=== PATIENT | female | born 1955 | race Caucasian/White ===

== ENCOUNTER 2016-07-23 22:12 | Inpatient (IN) | payer MEDICARE, MEDICAID ==
--- NOTE | 2016-07-23 22:52 | EDM.PDOC ---
ED HPI GENERAL MEDICAL PROBLEM - General Chief Complaint: Fever Stated Complaint: Feveres; Lethargy Time Seen by Provider: 07/23/16 22:14 Source of Information: Reports: Family, Old records, RN, RN notes reviewed History Limitations: Reports: Altered mental status - History of Present Illness INITIAL COMMENTS - FREE TEXT/NARRATIVE: Patient is brought to the ED at [facility] with a one day history of fevers (101-103) and poor fluid intake. Patient has also been more lethargic than usual. Patient is a resident of a local long term due to Mental Handicap. Patient is non-verbal. History is obtained from caretakers. She did get a dose of Tylenol around 21:30 this evening. Overall, patient is generally healthy. Onset Date: 07/23/16 - Related Data Allergies Allergy/AdvReac Type Severity Reaction Status Date / Time No Known Allergies Allergy Verified 07/23/16 23:49 ED ROS GENERAL - Review of Systems Review Of Systems: See Below (ROS obtained from [facility] staff) Constitutional: Reports: fever, chills, weakness Respiratory: Reports: shortness of breath, cough, sputum Cardiovascular: Denies: Chest pain, Palpitations Skin: Reports: wound (right heal, chronic) Neurological: Reports: weakness ED EXAM, GENERAL - Physical Exam Exam: See Below Exam Limited By: Altered mental status General Appearance: no apparent distress, lethargic Throat/Mouth: Normal oropharynx (mucous membranes are dry, pale pink), No airway compromise Neck: supple Respiratory/Chest: no respiratory distress, decreased breath sounds, rhonchi, wheezing Cardiovascular: normal peripheral pulses, regular rate, rhythm GI/Abdominal: normal bowel sounds, soft, non tender, no distention Neurological: other (lethargy; due to mental handicap, patient does not verbally respond well at baseline) Skin Exam: Warm (very warm), Dry, Intact, Normal color, No rash Course - Vital Signs Last Recorded V/S: Last Vital Signs Temp 37.4 C 07/23/16 23:59 Pulse 85 07/23/16 23:59 Resp 22 H 07/23/16 23:59 BP 129/57 L 07/23/16 23:59 Pulse Ox 92 L 07/23/16 23:59 - Orders/Labs/Meds Orders: Active Orders 24 hr Category Date Time Status Chest 1V Frontal [CR] Stat Exams 07/23/16 22:48 Taken CULTURE BLOOD [BC] Stat Lab 07/23/16 23:34 Ordered CULTURE BLOOD [BC] Stat Lab 07/23/16 23:34 Ordered Sodium Chloride 0.9% [Normal Saline] 1,000 ml Med 07/23/16 22:30 Active IV ASDIRECTED Sodium Chloride 0.9% [Saline Flush] Med 07/23/16 22:23 Active 10 ml FLUSH ASDIRECTED PRN Blood Culture x2 Reflex Set [OM.PC] Stat Oth 07/23/16 23:34 Ordered Peripheral IV Insertion Adult [OM.PC] Routine Oth 07/23/16 22:23 Ordered Medication Orders Sodium Chloride (Normal Saline) 1,000 mls @ 999 mls/hr IV ASDIRECTED MINDA Last Admin: 07/23/16 23:02 Dose: 999 mls/hr Sodium Chloride (Saline Flush) 10 ml FLUSH ASDIRECTED PRN PRN Reason: Keep Vein Open Labs: Laboratory Tests 07/23/16 07/23/16 07/23/16 Range/Units 22:58 22:58 22:58 WBC 3.8 L (4.0-10.0) x10^3/uL RBC 3.73 L (4.00-5.50) x10^6/uL Hgb 11.9 L (12.0-16.0) g/dL Hct 35.1 (33.0-47.0) % MCV 94.1 H (78.0-93.0) fL MCH 31.9 (26.0-32.0) pg MCHC 33.9 (32.0-36.0) g/dL RDW Coeff of Souleymane 14.7 (10.0-15.0) % Plt Count 189 (130-400) x10^3/uL Neut % (Auto) 76.8 (50.0-80.0) % Lymph % (Auto) 11.5 L (25.0-50.0) % Dauphin % (Auto) 10.2 (2.0-11.0) % Eos % (Auto) 0.5 (0.0-4.0) % Baso % (Auto) 1.0 (0.2-1.2) % Sodium 137 (136-145) mmol/L Potassium 4.3 (3.5-5.1) mmol/L Chloride 101 (98-107) mmol/L Carbon Dioxide 28 (21-32) mmol/L BUN 22 H (7-18) mg/dL Creatinine 1.1 H (0.55-1.02) mg/dL Est Cr Clr Drug Dosing TNP Estimated GFR (MDRD) 50 Glucose 123 H (74-106) mg/dL Lactic Acid 1.6 (0.4-2.0) mmol/L Calcium 8.4 L (8.5-10.1) mg/dL Corrected Calcium 9.28 (8.5-10.1) mg/dL Total Bilirubin 0.3 (0.2-1.0) mg/dL AST 17 (15-37) U/L ALT 16 (14-59) U/L Alkaline Phosphatase 86 (46-116) U/L C-Reactive Protein 9.6 H (<=0.9) mg/dL Total Protein 7.1 (6.4-8.2) g/dL Albumin 2.9 L (3.4-5.0) g/dL Globulin 4.2 Albumin/Globulin Ratio 0.69 Urine Color (YELLOW) Urine Appearance (CLEAR) Urine pH (5.0-8.0) Ur Specific [place] Urine Protein (NEGATIVE) mg/dL Urine Glucose (UA) (NEGATIVE) mg/dL Urine Ketones (NEGATIVE) mg/dL Urine Occult Blood (NEGATIVE) Urine Nitrite (NEGATIVE) Urine Bilirubin (NEGATIVE) Urine Urobilinogen (0.2) EU/dL Ur Leukocyte Esterase (NEGATIVE) Urine RBC (NOT SEEN) /HPF Urine WBC (NOT SEEN) /HPF Ur Squamous Epith Cells (NEGATIVE) /HPF Ur Renal Epithelial Cell (NEGATIVE) /HPF Amorphous Sediment Urine Bacteria (NEGATIVE) /HPF Urine Mucus (NEGATIVE) /LPF 07/23/16 Range/Units 23:32 WBC (4.0-10.0) x10^3/uL RBC (4.00-5.50) x10^6/uL Hgb (12.0-16.0) g/dL Hct (33.0-47.0) % MCV (78.0-93.0) fL MCH (26.0-32.0) pg MCHC (32.0-36.0) g/dL RDW Coeff of Souleymane (10.0-15.0) % Plt Count (130-400) x10^3/uL Neut % (Auto) (50.0-80.0) % Lymph % (Auto) (25.0-50.0) % [place]hin % (Auto) (2.0-11.0) % Eos % (Auto) (0.0-4.0) % Baso % (Auto) (0.2-1.2) % Sodium (136-145) mmol/L Potassium (3.5-5.1) mmol/L Chloride (98-107) mmol/L Carbon Dioxide (21-32) mmol/L BUN (7-18) mg/dL Creatinine (0.55-1.02) mg/dL Est Cr Clr Drug Dosing Estimated GFR (MDRD) Glucose (74-106) mg/dL Lactic Acid (0.4-2.0) mmol/L Calcium (8.5-10.1) mg/dL Corrected Calcium (8.5-10.1) mg/dL Total Bilirubin (0.2-1.0) mg/dL AST (15-37) U/L ALT (14-59) U/L Alkaline Phosphatase (46-116) U/L C-Reactive Protein (<=0.9) mg/dL Total Protein (6.4-8.2) g/dL Albumin (3.4-5.0) g/dL Globulin Albumin/Globulin Ratio Urine Color Yellow (YELLOW) Urine Appearance Cloudy H (CLEAR) Urine pH 8.0 (5.0-8.0) Ur Specific [place] 1.020 Urine Protein 30 H (NEGATIVE) mg/dL Urine Glucose (UA) Negative (NEGATIVE) mg/dL Urine Ketones Negative (NEGATIVE) mg/dL Urine Occult Blood Negative (NEGATIVE) Urine Nitrite Negative (NEGATIVE) Urine Bilirubin Negative (NEGATIVE) Urine Urobilinogen 0.2 (0.2) EU/dL Ur Leukocyte Esterase Negative (NEGATIVE) Urine RBC 0-5 (NOT SEEN) /HPF Urine WBC 0-5 (NOT SEEN) /HPF Ur Squamous Epith Cells Not seen (NEGATIVE) /HPF Ur Renal Epithelial Cell Rare H (NEGATIVE) /HPF Amorphous Sediment Many Urine Bacteria Rare (NEGATIVE) /HPF Urine Mucus Few H (NEGATIVE) /LPF Meds: Medications Generic Name Dose Route Start Last Admin Trade Name Freq PRN Reason Stop Dose Admin Sodium Chloride 1,000 mls @ 999 mls/hr 07/23/16 22:30 07/23/16 23:02 Normal Saline IV 999 mls/hr ASDIRECTED MINDA Administration Sodium Chloride 10 ml 07/23/16 22:23 Saline Flush FLUSH ASDIRECTED PRN Keep Vein Open Departure - Departure Time of Disposition: 00:11 Disposition: Refer to Observation Condition: fair Clinical Impression: Dehydration, mild Left lower lobe pneumonia Qualifiers: Pneumonia type: due to unspecified organism Qualified Code(s): J18.1 - Lobar pneumonia, unspecified organism Fever Qualifiers: Fever type: unspecified Qualified Code(s): R50.9 - Fever, unspecified Referrals: Solomon Smith MD [Primary Care Provider] - ED Communication - ED Communication Date/Time Date: 07/23/16 Time Called: 23:40 - Discussed Case With (1) Discussed Case With (1): Admitting Provider Person/s Notified (1): Vicky Steen - Problem List Review Problem List Initiated/Reviewed/Updated: Yes - My Orders Last 24 Hours: My Active Orders 07/23/16 22:23 Sodium Chloride 0.9% [Saline Flush] 10 ml FLUSH ASDIRECTED PRN Peripheral IV Insertion Adult [OM.PC] Routine 07/23/16 22:30 Sodium Chloride 0.9% [Normal Saline] 1,000 ml IV ASDIRECTED 07/23/16 22:48 Chest 1V Frontal [CR] Stat 07/23/16 23:34 CULTURE BLOOD [BC] Stat CULTURE BLOOD [BC] Stat Blood Culture x2 Reflex Set [OM.PC] Stat - Assessment/Plan Admission H&P: Please use this note as an admission H&P Last 24 Hours: My Active Orders 07/23/16 22:23 Sodium Chloride 0.9% [Saline Flush] 10 ml FLUSH ASDIRECTED PRN Peripheral IV Insertion Adult [OM.PC] Routine 07/23/16 22:30 Sodium Chloride 0.9% [Normal Saline] 1,000 ml IV ASDIRECTED 07/23/16 22:48 Chest 1V Frontal [CR] Stat 07/23/16 23:34 CULTURE BLOOD [BC] Stat CULTURE BLOOD [BC] Stat Blood Culture x2 Reflex Set [OM.PC] Stat
[2016-07-23] MEDS: Sodium Chloride 0.9% 1,000 ML IV SCH (23:02)
[2016-07-23 23:04] LABS: EOSINOPHILS PERCENT AUTO 0.5 % (0.0-4.0); HEMATOCRIT 35.1 % (33.0-47.0); HEMOGLOBIN 11.9 g/dL (12.0-16.0); LYMPHOCYTES PERCENT AUTO 11.5 % (25.0-50.0); MEAN CORPUSCULAR HEMOGLOBIN 31.9 pg (26.0-32.0); MEAN CORPUSCULAR HGB CONC 33.9 g/dL (32.0-36.0); MEAN CORPUSCULAR VOLUME 94.1 fL (78.0-93.0); MONOCYTES PERCENT AUTO 10.2 % (2.0-11.0); NEUTROPHILS PERCENT AUTO 76.8 % (50.0-80.0); RDW CV 14.7 % (10.0-15.0); RED BLOOD CELL COUNT 3.73 x10^6/uL (4.00-5.50)
[2016-07-23 23:26] LABS: A/G RATIO 0.69; ALBUMIN 2.9 g/dL (3.4-5.0); ALKALINE PHOSPHATASE 86 U/L (46-116); BILIRUBIN TOTAL 0.3 mg/dL (0.2-1.0); C-REACTIVE PROTEIN 9.6 mg/dL (<=0.9); CALCIUM 8.4 mg/dL (8.5-10.1); CHLORIDE,CL 101 mmol/L (98-107); CORRECTED CALCIUM 9.28 mg/dL (8.5-10.1); CREATININE 1.1 mg/dL (0.55-1.02); ESTIMATED GFR 50; GLUCOSE RANDOM 123 mg/dL (74-106)
[2016-07-23 23:49] LABS: BILIRUBIN,URINE NEGATIVE (NEGATIVE); GLUCOSE,URINE NEGATIVE (NEGATIVE); KETONES,URINE NEGATIVE (NEGATIVE); LEUKOCYTE ESTERASE,URINE NEGATIVE (NEGATIVE); NITRITE,URINE NEGATIVE (NEGATIVE); OCCULT BLOOD,URINE NEGATIVE (NEGATIVE); PROTEIN,URINE 30 mg/dL (NEGATIVE); UROBILINOGEN,URINE 0.2 EU/dL (0.2)
[2016-07-23 23:50] LABS: APPEARANCE,URINE CLOUDY (CLEAR)
[2016-07-23 23:53] LABS: BACTERIA,URINE RARE /HPF (NEGATIVE); MUCUS,URINE FEW /LPF (NEGATIVE); RBC,URINE 0-5 /HPF (NOT SEEN); RENAL EPITHELIAL CELLS,URINE RARE /HPF (NEGATIVE); WBC,URINE 0-5 /HPF (NOT SEEN)
--- NOTE | 2016-07-24 00:51 | PCM.HP ---
H&P History of Present Illness - General Date of Service: 07/24/16 Admit Problem/Dx: Admission Diagnosis/Problem Admission Diagnosis/Problem Lobar pneumonia Source of Information: Old records, RN, RN notes reviewed History Limitations: Reports: Altered mental status - History of Present Illness Initial Comments - Free Text/Narative: Patient presented to the ED at [facility] earlier this evening with a fever and increased lethargy. Patient is a resident at a local senior care. According to the caretakers presents, patient had a Tmax of 103 and seemed more lethargic than usual. It was recommended by the Jail nurse the patient should be seen in the ED. It is unclear how long the patient was febrile. Patient is a poor historian given her baseline mental status. She has a history of dementia and is mentally handicapped. Jail staff states the patient also has not been taking in PO fluids very well. [facility]ent[facility] staff does not note any other symptoms. 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; Scoliosis; Pes Planus; Calcaneal Valgus Other Neuro History: Downs Syndrome Psychiatric History: Reports: Dementia, Learning disability Endocrine/Metabolic History: Reports: Hypothyroidism Dermatologic History: Reports: Decubitus ulcer (Right Heal), Seborrheic dermatitis Social & Family History - Family History Family Medical History: Noncontributory - Tobacco Use Smoking Status *Q: Never Smoker Tobacco Use Within Last Twelve Months: No - Tobacco Core Measures Tobacco Use/Smoking Within Last 30 Days: No - Caffeine Use Caffeine Use: Reports: None - Alcohol Use Alcohol Use History: No Alcohol Use in Last Twelve Months: No - Recreational Drug Use Recreational Drug Use: No Drug Use in Last 12 Months: No - Sexual History Sexual History: Reports: None - Living Situation & Occupation Living situation: Reports: single, extended care facility ([facility]) Occupation: disabled H&P Review of Systems - Review of Systems: Review Of Systems: See Below (ROS obtained from Jail staff) General: Reports: fever, chills, weakness HEENT: Reports: no symptoms Pulmonary: Reports: wheezing, cough, sputum. Denies: shortness of breath Cardiovascular: Reports: blood pressure problem. Denies: chest pain, palpitations Gastrointestinal: Denies: Abdominal pain, Diarrhea, Nausea, Vomiting Skin: Reports: wound (chronic heal ulcer on right foot) Neurological: Reports: no symptoms Exam - Exam Exam: See Below - Vital Signs Vital Signs: Last Vital Signs Temp 37.4 C 07/23/16 23:59 Pulse 85 07/23/16 23:59 Resp 22 H 07/23/16 23:59 BP 129/57 L 07/23/16 23:59 Pulse Ox 92 L 07/23/16 23:59 Weight: 49.895 kg - Exam Quality Assessment: urinary catheter, skin breakdown General: cooperative, lethargic HEENT: Pupils equal, Pupils reactive, TMs clear Neck: supple Lungs: Rhonchi, Wheezing Cardiovascular: regular rate, regular rhythm, systolic murmur Abdomen: normal bowel sounds, soft. No: tenderness Extremities: edema (trace edema BLE) Skin: warm, dry, intact, other (right heal is red; skin intact) Skin Alteration Location (drawings not to scale): 1 - Right heel is red; skin intact; area blanches well; no evidence of infection; surrounding skin is psoriatic Neuro Extensive - Mental Status: alert Psychiatric: alert - Patient Data Result Diagrams: 07/23/16 22:58 07/23/16 22:58 *Q Meaningful Use (ADM) - VTE *Q VTE Criteria *Q: VTE Mechanical Contraindications *Q: At Risk for Falls - VTE Risk Assess *Q Each Risk Factor Represents 2 Points: Age 60 - 74 Years Total Score 2 Point Risk Factors: 2 - Stroke *Q Stroke Criteria *Q: - AMI *Q AMI Criteria *Q: - Problem List (1) Left lower lobe pneumonia SNOMED Code(s): 614314326 ICD Code: J18.1 - LOBAR PNEUMONIA, UNSPECIFIED ORGANISM Status: Acute Priority: High Current Visit: Yes Onset Date: ~07/23/16 Qualifiers: Pneumonia type: due to unspecified organism Qualified Code(s): J18.1 - Lobar pneumonia, unspecified organism (2) Fever SNOMED Code(s): 898025582 ICD Code: R50.9 - FEVER, UNSPECIFIED Status: Acute Current Visit: Yes Onset Date: ~07/23/16 Qualifiers: Fever type: unspecified Qualified Code(s): R50.9 - Fever, unspecified (3) Dehydration, mild SNOMED Code(s): 8380784376296 ICD Code: E86.0 - DEHYDRATION Status: Acute Current Visit: Yes Problem List Initiated/Reviewed/Updated: Yes Orders Last 24hrs: Active Orders 24 hr Category Date Time Status Admission Status [Patient Status] [ADT] Routine ADT 07/24/16 00:12 Active Medication Orders Sodium Chloride (Normal Saline) 1,000 mls @ 999 mls/hr IV ASDIRECTED MINDA Last Admin: 07/23/16 23:02 Dose: 999 mls/hr Sodium Chloride (Saline Flush) 10 ml FLUSH ASDIRECTED PRN PRN Reason: Keep Vein Open Assessment/Plan Comment:: 1. Admit patient for observation for now 2. Follow Pneumonia Core Measures/admit orders
[2016-07-24] MEDS ORDERED: Azithromycin 500 MG in Sodium Chloride 0.9% 250 ML IV SCH (01:15)
[2016-07-24] MEDS ORDERED: Ondansetron 4 MG/2 ML SDV IV PRN (01:22)
[2016-07-24] MEDS ORDERED: Acetaminophen 650 MG Supp RECTAL PRN (01:25)
[2016-07-24] MEDS ORDERED: Sodium Chloride 0.9% 500 ML IV SCH ×3 (01:30→19:30)
[2016-07-24] MEDS ORDERED: SELENIUM SULFIDE TOP SCH (01:30)
[2016-07-24] MEDS: Albuterol/Ipratropium 3.0-0.5 MG/3 ML Neb Soln NEB SCH ×6 (02:34→21:27)
[2016-07-24] MEDS: cefTRIAXone 1 GM Vial IVPUSH SCH (02:50)
[2016-07-24] MEDS: Levothyroxine 100 MCG Tab PO SCH (06:07)
[2016-07-24] MEDS: A VITE PO SCH (08:00)
[2016-07-24] MEDS: [UNRECOGNIZED DRUG - OTHER] PO SCH ×3 (08:00→20:32)
[2016-07-24] MEDS: Zinc (Zinc Gluconate) 50 MG Tab PO SCH (08:00)
[2016-07-24] MEDS ORDERED: Multivitamin, Stress Formula with Zinc Tab PO SCH (08:00)
--- NOTE | 2016-07-24 08:08 | PCM.PN ---
- General Info Date of Service: 07/24/16 Subjective Update: Patient is a 61 yo female admitted overnight with pneumonia. It initially sounded to me as though she was not very ill and could be placed on observation with anticipation for dismissal today. However, her underlying cognitive impairment and physical debility do place her at increased risk for complications. Apparently there is also some concern about her getting her medications if she were to leave here due to limited staff on the weekend. She has also received extensive IV fluids overnight without much urine output. Therefore, will plan to transition her to acute cares today. She cannot provide any history but is resting comfortably in bed. - Review of Systems General: Reports: no symptoms HEENT: Reports: no symptoms Pulmonary: Reports: cough, wheezing. Denies: shortness of breath Cardiovascular: Reports: no symptoms Gastrointestinal: Reports: No symptoms Genitourinary: Reports: no symptoms Skin: Reports: no symptoms - Patient Data Vitals - most recent: Last Vital Signs Temp 36.9 C 07/24/16 05:49 Pulse 77 07/24/16 05:49 Resp 20 07/24/16 05:49 BP 137/68 07/24/16 05:49 Pulse Ox 94 L 07/24/16 05:49 Weight - most recent: 49.895 kg I&O - last 24 hours: Intake & Output 07/23/16 07/24/16 07/24/16 22:59 06:59 14:59 Intake Total 1050 Output Total 150 Balance 900 Med Orders - Current: Current Medications Acetaminophen (Tylenol) 650 mg PO Q4H PRN PRN Reason: Pain (Mild 1-3)/fever Acetaminophen (Tylenol) 650 mg RECTAL Q6H PRN PRN Reason: Pain/Fever Albuterol/Ipratropium (Duoneb 3.0-0.5 Mg/3 Ml) 3 ml NEB Q4H MINDA Last Admin: 07/24/16 06:08 Dose: 3 ml Albuterol/Ipratropium (Duoneb 3.0-0.5 Mg/3 Ml) 3 ml NEB Q2H PRN PRN Reason: Wheezing Ceftriaxone Sodium (Rocephin) 1 gm IVPUSH Q24H MINDA Last Admin: 07/24/16 02:50 Dose: 1 gm Donepezil HCl (Aricept) 10 mg PO BEDTIME MINDA Sodium Chloride (Normal Saline) 1,000 mls @ 999 mls/hr IV ASDIRECTED [facility] Last Admin: 07/23/16 23:02 Dose: 999 mls/hr Sodium Chloride (Normal Saline) 500 mls @ 100 mls/hr IV ASDIRECTED [facility] Last Admin: 07/24/16 00:50 Dose: 100 mls/hr Levothyroxine Sodium (Synthroid) 100 mcg PO ACBREAKFAST [facility] Last Admin: 07/24/16 06:07 Dose: 100 mcg Non-Formulary Medication (Selenium Sulfide [Selsun Blue]) 1 applic TOP WEEKLY [facility] Patient's Own Medication 1 Each [place] 0 each PO TID [facility] Patient's Own Medication 1 Each Tab-A-Cristóbal 1 each PO DAILY [facility] Sodium Chloride (Saline Flush) 10 ml FLUSH ASDIRECTED PRN PRN Reason: Keep Vein Open Zinc Gluconate (Zinc) 50 mg PO DAILY [facility] Discontinued Medications Azithromycin 500 mg/ Sodium (Chloride) 250 mls @ 250 mls/hr IV Q24H [facility] Last Admin: 07/24/16 02:49 Dose: 250 mls/hr Ondansetron HCl (Zofran) 4 mg IV Q6H PRN PRN Reason: Nausea/Vomiting Vitamin B Complex/Vit C/Vit E/Zinc (Stress Formula With Zinc) 1 tab PO DAILY [facility] - Exam General: other (sleepy but arouses to voice) HEENT: Mucous membr. moist/pink Neck: supple, trachea midline. No: lymphadenopathy Lungs: Crackles (rather diffusely - patient is unable to cooperate with exam, limiting reliability of findings), Wheezing (diffusely) Cardiovascular: regular rate, regular rhythm, no murmurs Abdomen: bowel sounds present, soft, no tenderness, no distension Extremities: no edema, normal pulses Skin: warm, dry, intact - Problem List & Annotations (1) Left lower lobe pneumonia SNOMED Code(s): 112775852 Code(s): J18.1 - LOBAR PNEUMONIA, UNSPECIFIED ORGANISM Status: Acute Priority: High Current Visit: Yes Onset Date: ~07/23/16 Qualifiers: Pneumonia type: due to unspecified organism Qualified Code(s): J18.1 - Lobar pneumonia, unspecified organism Annotation/Comment:: - Diagnosis based on symptoms and high fever. CXR findings on the portable are nonspecific; patient does not have any leukocytosis. Diagnosed as LLL pneumonia in the ED but unable to say today that this is the location specifically. - Patient's vital signs remain stable. - She does not meet any sepsis criteria. - Given poor physical ability to cough up secretions, patient would benefit from at least 48 hours of IV antibiotics. - Continue ceftriaxone IV today; will transition azithromycin to PO. - She has wheezing with no documentation of prior reactive airways disease; however, this question has been raised on x-rays in the past. Continue neb treatments. (2) Dehydration, mild SNOMED Code(s): 2134493696907 Code(s): E86.0 - DEHYDRATION Status: Acute Current Visit: Yes Annotation/Comment:: - Patient's PO intake has been poor according to the records. - She got 1500 cc in over the past 12 hours with only 150 cc out in the absence of any renal impairment. - Patient does not appear fluid overloaded on exam at this time. CXR is portable , which makes it difficult to assess for cardiomegaly; however, radiology has read it as such. - Will hold off on further fluids and get a BNP as below. (3) Cardiomegaly SNOMED Code(s): 0128831 Code(s): I51.7 - CARDIOMEGALY Status: Acute Current Visit: Yes Annotation/Comment:: - Patient does not appear fluid overloaded on exam at this time. CXR is portable , which makes it difficult to assess for cardiomegaly; however, radiology has read it as such. - Will get a BNP this am to help clarify. - Will also try to get a PA and Lateral chest x-ray if possible as well. - Hold off on further IV fluids; no lasix for now until BNP result returns. (4) Mitral valve prolapse SNOMED Code(s): 247494434 Code(s): I34.1 - NONRHEUMATIC MITRAL (VALVE) PROLAPSE Status: Chronic Current Visit: Yes Annotation/Comment:: - No apparent issues related to this. Patient does have a systolic murmur. - No Echo in the past 5 years. (5) Hypertension SNOMED Code(s): 08083174 Code(s): I10 - ESSENTIAL (PRIMARY) HYPERTENSION Status: Chronic Current Visit: Yes Qualifiers: Hypertension type: essential hypertension Qualified Code(s): I10 - Essential (primary) hypertension Annotation/Comment:: - BPs good in ED and on the floor. - Patient is not on any home medications for this. - Will continue to monitor. (6) Impaired fasting glucose SNOMED Code(s): 575262640 Code(s): R73.01 - IMPAIRED FASTING GLUCOSE Status: Chronic Current Visit : Yes Annotation/Comment:: - No need for glucose monitoring. (7) Hypothyroidism SNOMED Code(s): 20795899 Code(s): E03.9 - HYPOTHYROIDISM, UNSPECIFIED Status: Chronic Current Visit: Yes Qualifiers: Hypothyroidism type: unspecified Qualified Code(s): E03.9 - Hypothyroidism , unspecified Annotation/Comment:: - Continue levothyroxine. (8) Trisomy 21 SNOMED Code(s): 20836542 Code(s): Q90.9 - DOWN SYNDROME, UNSPECIFIED Status: Chronic Current Visit : Yes (9) Dementia SNOMED Code(s): 96492738 Code(s): F03.90 - UNSPECIFIED DEMENTIA WITHOUT BEHAVIORAL DISTURBANCE Status: Chronic Current Visit: Yes Qualifiers: Dementia type: Alzheimer's disease Alzheimer's disease onset: early-onset Dementia behavioral disturbance: without behavioral disturbance Qualified Code(s): G30.0 - Alzheimer's disease with early onset; F02.80 - Dementia in other diseases classified elsewhere without behavioral disturbance Annotation/Comment:: - Continue donepezil. (10) Bilateral hearing loss SNOMED Code(s): 27756400 Code(s): H91.93 - UNSPECIFIED HEARING LOSS, BILATERAL Status: Chronic Current Visit: Yes Qualifiers: Hearing loss type: unspecified Qualified Code(s): H91.93 - Unspecified hearing loss, bilateral Annotation/Comment:: - Ensure patient has her hearing aids. (11) Scoliosis SNOMED Code(s): 893617717 Code(s): M41.9 - SCOLIOSIS, UNSPECIFIED Status: Chronic Current Visit: Yes Qualifiers: Scoliosis type: unspecified scoliosis Spinal region: unspecified Qualified Code(s): M41.9 - Scoliosis, unspecified Annotation/Comment:: - Increases risk for pneumonia and limits patient ability to clear secretions. - Will optimize positioning to help with this. (12) Osteoporosis SNOMED Code(s): 28133343 Code(s): M81.0 - AGE-RELATED OSTEOPOROSIS W/O CURRENT PATHOLOGICAL FRACTURE Status: Chronic Current Visit: Yes - Problem List Review Problem List Initiated/Reviewed/Updated: Yes - My Orders Last 24 Hours: My Active Orders 07/25/16 08:00 Azithromycin [Zithromax] 500 mg PO DAILY - Assessment Assessment:: 61 yo female admitted with pneumonia diagnosed based on symptoms and fever. Some question of CHF on CXR; therefore, will do BNP today and consider PA and lateral CXR either today or tomorrow. Patient has had minimal urine output, which may be secondary to dehydration vs. CHF - unclear what her baseline is. - Plan Plan:: Continue IV antibiotics. Patient has had minimal urine output but will wait on further IV fluids until BNP results are in. Will start VTE prophylaxis with lovenox at a dose of 30 mg given patient's low weight. Code status is DNR/DNI per paperwork from [facility]. Anticipate dismissal on Tuesday, 07/26, if her [facility] is able to take her back that day.
[2016-07-24 08:26] LABS: BASOPHILS PERCENT AUTO 0.7 % (0.2-1.2); EOSINOPHILS PERCENT AUTO 0.3 % (0.0-4.0); HEMATOCRIT 34.8 % (33.0-47.0); HEMOGLOBIN 11.6 g/dL (12.0-16.0); LYMPHOCYTES PERCENT AUTO 16.7 % (25.0-50.0); MEAN CORPUSCULAR HEMOGLOBIN 31.9 pg (26.0-32.0); MEAN CORPUSCULAR HGB CONC 33.3 g/dL (32.0-36.0); MEAN CORPUSCULAR VOLUME 95.6 fL (78.0-93.0); MONOCYTES PERCENT AUTO 12.8 % (2.0-11.0); NEUTROPHILS PERCENT AUTO 69.5 % (50.0-80.0); RDW CV 14.8 % (10.0-15.0); RED BLOOD CELL COUNT 3.64 x10^6/uL (4.00-5.50)
[2016-07-24] MEDS ORDERED: Enoxaparin 30 MG/0.3 ML Syringe SUBCUT SCH (08:30)
[2016-07-24 08:35] LABS: CALCIUM 7.6 mg/dL (8.5-10.1); EST CRCL DRUG DOSING (CG) 41.9 mL/min
[2016-07-24] MEDS: Sodium Chloride 0.9% 1,000 ML IV SCH (08:36)
[2016-07-24] MEDS: Albuterol/Ipratropium 3.0-0.5 MG/3 ML Neb Soln NEB PRN (08:36)
[2016-07-24] MEDS ORDERED: Furosemide 20 MG/2 ML VIAL IVPUSH ONE (09:41)
--- NOTE | 2016-07-24 09:42 | PCM.SN ---
- Free Text/Narrative Note: BNP is elevated; will give 10 mg dose of IV lasix. No further IV fluids at this time. Reassess UOP in 6 hours.
--- NOTE | 2016-07-24 09:52 | PCM.SN ---
- Free Text/Narrative Note: Updated patient's guardians Les ([phone]) and Deanna ([phone]) Sofi on her admission to the hospital. Reviewed the plan for today. They confirm the patient is to be DNR/DNI. They are ok with BiPap/CPAP if this is indicated.
[2016-07-24] MEDS: Donepezil 10 MG Tab PO SCH (20:25)
[2016-07-24] MEDS: Acetaminophen 325 MG Tab PO PRN (21:27)
[2016-07-25] MEDS: Albuterol/Ipratropium 3.0-0.5 MG/3 ML Neb Soln NEB SCH ×8 (02:33→22:01)
[2016-07-25] MEDS: cefTRIAXone 1 GM Vial IVPUSH SCH (02:38)
[2016-07-25] MEDS: Levothyroxine 100 MCG Tab PO SCH (06:11)
[2016-07-25] MEDS: Enoxaparin 30 MG/0.3 ML Syringe SUBCUT SCH (07:58)
[2016-07-25] MEDS: Zinc (Zinc Gluconate) 50 MG Tab PO SCH (07:59)
[2016-07-25] MEDS: A VITE PO SCH (07:59)
[2016-07-25] MEDS: [UNRECOGNIZED DRUG - OTHER] PO SCH ×3 (07:59→19:52)
[2016-07-25] MEDS: Azithromycin 250 MG Tab PO SCH (07:59)
[2016-07-25] MEDS ORDERED: Furosemide 20 MG/2 ML VIAL IVPUSH STA (09:31)
[2016-07-25] MEDS: Sodium Chloride 0.9% 10 ML Syringe FLUSH PRN (09:57)
--- NOTE | 2016-07-25 10:01 | PCM.PN ---
- General Info Date of Service: 07/25/16 Subjective Update: Patient is resting comfortably in bed this morning. She is noncommunicative at baseline. She had no overnight events. - Review of Systems General: Reports: no symptoms HEENT: Reports: no symptoms Pulmonary: Reports: no symptoms Gastrointestinal: Reports: No symptoms Genitourinary: Reports: no symptoms Musculoskeletal: Reports: no symptoms Skin: Reports: no symptoms - Patient Data Vitals - most recent: Last Vital Signs Temp 36.7 C 07/25/16 06:00 Pulse 65 07/25/16 06:00 Resp 18 07/25/16 06:00 BP 125/79 07/25/16 06:00 Pulse Ox 96 07/25/16 06:00 Weight - most recent: 49.895 kg I&O - last 24 hours: Intake & Output 07/24/16 07/25/16 07/25/16 22:59 06:59 14:59 Intake Total 500 Output Total 100 350 Balance -100 150 Lab Results last 24 hrs: Laboratory Results - last 24 hr 07/25/16 07/25/16 Range/Units 07:35 07:49 POC VBG pH 7.53 H (7.31-7.41) POC VBG pCO2 30 L (41-51) POC VBG pO2 57 POC VBG HCO3 25 (23-28) POC VBG Total CO2 26 (24-29) POC VBG Base Excess 2 ((-2) - 3) POC FiO2 0.21 TSH, Ultra Sensitive 5.192 H (0.358-3.74) uIU/mL Med Orders - Current: Current Medications Acetaminophen (Tylenol) 650 mg PO Q4H PRN PRN Reason: Pain (Mild 1-3)/fever Last Admin: 07/24/16 21:27 Dose: 650 mg Acetaminophen (Tylenol) 650 mg RECTAL Q6H PRN PRN Reason: Pain/Fever Albuterol/Ipratropium (Duoneb 3.0-0.5 Mg/3 Ml) 3 ml NEB Q2H PRN PRN Reason: Wheezing Last Admin: 07/24/16 08:36 Dose: 3 ml Albuterol/Ipratropium (Duoneb 3.0-0.5 Mg/3 Ml) 3 ml NEB Q4HRRT [facility] Azithromycin (Zithromax) 500 mg PO DAILY [facility] Last Admin: 07/25/16 07:59 Dose: 500 mg Ceftriaxone Sodium (Rocephin) 1 gm IVPUSH Q24H [facility] Last Admin: 07/25/16 02:38 Dose: 1 gm Donepezil HCl (Aricept) 10 mg PO BEDTIME [facility] Last Admin: 07/24/16 20:25 Dose: 10 mg Enoxaparin Sodium (Lovenox) 30 mg SUBCUT DAILY [facility] Last Admin: 07/25/16 07:58 Dose: 30 mg Levothyroxine Sodium (Synthroid) 100 mcg PO ACBREAKFAST [facility] Last Admin: 07/25/16 06:11 Dose: 100 mcg Non-Formulary Medication (Selenium Sulfide [Selsun Blue]) 1 applic TOP WEEKLY [facility] Patient's Own Medication 1 Each [place] 0 each PO TID [facility] Last Admin: 07/25/16 07:59 Dose: 1 each Patient's Own Medication 1 Each Tab-A-Cristóbal 1 each PO DAILY [facility] Last Admin: 07/25/16 07:59 Dose: 1 each Sodium Chloride (Saline Flush) 10 ml FLUSH ASDIRECTED PRN PRN Reason: Keep Vein Open Zinc Gluconate (Zinc) 50 mg PO DAILY [facility] Last Admin: 07/25/16 07:59 Dose: 50 mg Discontinued Medications Albuterol/Ipratropium (Duoneb 3.0-0.5 Mg/3 Ml) 3 ml NEB Q4H [facility] Last Admin: 07/25/16 09:36 Dose: Not Given Enoxaparin Sodium (Lovenox) 30 mg SUBCUT DAILY [facility] Last Admin: 07/25/16 09:38 Dose: Not Given Furosemide (Lasix) 10 mg IVPUSH NOW ONE Stop: 07/24/16 09:42 Last Admin: 07/24/16 09:50 Dose: 10 mg Furosemide (Lasix) 10 mg IVPUSH NOW STA Stop: 07/25/16 09:32 Sodium Chloride (Normal Saline) 1,000 mls @ 999 mls/hr IV ASDIRECTED [facility] Last Admin: 07/24/16 08:36 Dose: 100 mls/hr Azithromycin 500 mg/ Sodium (Chloride) 250 mls @ 250 mls/hr IV Q24H [facility] Last Admin: 07/24/16 02:49 Dose: 250 mls/hr Sodium Chloride (Normal Saline) 500 mls @ 100 mls/hr IV ASDIRECTED [facility] Last Admin: 07/24/16 00:50 Dose: 100 mls/hr Sodium Chloride (Normal Saline) 500 mls @ 100 mls/hr IV ASDIRECTED [facility] Sodium Chloride (Normal Saline) 500 mls @ 50 mls/hr IV ASDIRECTED [facility] Ondansetron HCl (Zofran) 4 mg IV Q6H PRN PRN Reason: Nausea/Vomiting Vitamin B Complex/Vit C/Vit E/Zinc (Stress Formula With Zinc) 1 tab PO DAILY [facility] - Exam General: alert, oriented, cooperative, no acute distress Neck: supple, trachea midline. No: lymphadenopathy Lungs: Crackles (diffuse), Wheezing (diffuse but less prominent than yesterday) Cardiovascular: regular rate, regular rhythm, murmurs Abdomen: bowel sounds present, soft, no tenderness, no distension Extremities: normal pulses, edema (trace to the knees bilaterally) Skin: warm, dry, intact Psy/Mental Status: alert - Problem List & Annotations (1) Left lower lobe pneumonia SNOMED Code(s): 499308498 Code(s): J18.1 - LOBAR PNEUMONIA, UNSPECIFIED ORGANISM Status: Acute Priority: High Current Visit: Yes Onset Date: ~07/23/16 Qualifiers: Pneumonia type: due to unspecified organism Qualified Code(s): J18.1 - Lobar pneumonia, unspecified organism Annotation/Comment:: - Diagnosis based on symptoms and high fever. Had a fever last night as well. - CXR findings on the portable are nonspecific; patient does not have any leukocytosis. Diagnosed as LLL pneumonia in the ED but still unable to say that this is the location specifically. - Patient's vital signs remain stable. - She does not meet any sepsis criteria. - Given poor physical ability to cough up secretions, patient would benefit from at least 48 hours of IV antibiotics. - Continue ceftriaxone IV today; will transition azithromycin to PO. - She has wheezing with no documentation of prior reactive airways disease; however, this question has been raised on x-rays in the past. Suspect some of the wheezing is also CHF exacerbation related. Continue neb treatments. (2) Congestive heart failure SNOMED Code(s): 25065852 Code(s): I50.9 - HEART FAILURE, UNSPECIFIED Status: Acute Current Visit: Yes Annotation/Comment:: - Diagnosis made based on evidence of overload on CXR and elevated BNP. - Will attempt to get a PA and lateral CXR to the best of our ability today. - Patient had good response to low dose IV lasix yesterday. Will repeat again today. - Catheter in place for I/O monitoring. Will d/c this as soon as able but is still indicated due to patient's total assist for mobility and plan for ongoing diuresis. - Cause for CHF is likely pneumonia in the setting of known mitral valve disease. ECG yesterday was negative for any acute process and patient has no history of CAD or evidence currently of CAD or an arrhythmia. TSH is mildly above the normal range, but not enough to be causing the CHF. Anemia is also not severe enough to be causing this. - Briefly discussed with the family yesterday that even if her mitral valve disease has progressed and is now severe enough, this is a major surgery and likely does not fit with her goals of care at this time. Further discussions can occur as an outpatient and an Echo can be pursued as indicated. (3) Dehydration, mild SNOMED Code(s): 0003581445575 Code(s): E86.0 - DEHYDRATION Status: Acute Current Visit: Yes Annotation/Comment:: - Patient's PO intake and level of alertness have improved today. Will d/c IV fluids and see how she does with PO intake today. - UOP improved with lasix. - Has some edema on exam today. CXR is portable, which makes it difficult to assess for cardiomegaly; however, radiology has read it as such. (4) Cardiomegaly SNOMED Code(s): 4287539 Code(s): I51.7 - CARDIOMEGALY Status: Acute Current Visit: Yes Annotation/Comment:: - See above under CHF. (5) Mitral valve prolapse SNOMED Code(s): 779550697 Code(s): I34.1 - NONRHEUMATIC MITRAL (VALVE) PROLAPSE Status: Chronic Current Visit: Yes Annotation/Comment:: - No apparent issues related to this unless CHF is secondary to this. Patient does have a systolic murmur. - No Echo in the past 5 years. (6) Hypertension SNOMED Code(s): 56871623 Code(s): I10 - ESSENTIAL (PRIMARY) HYPERTENSION Status: Chronic Current Visit: Yes Qualifiers: Hypertension type: essential hypertension Qualified Code(s): I10 - Essential (primary) hypertension Annotation/Comment:: - BPs good during admission. Had 1 lower BP at 90s/60s but was asymptomatic at that time. - Patient is not on any home medications for this. - Will continue to monitor. (7) Impaired fasting glucose SNOMED Code(s): 507604218 Code(s): R73.01 - IMPAIRED FASTING GLUCOSE Status: Chronic Current Visit : Yes Annotation/Comment:: - No need for glucose monitoring. (8) Hypothyroidism SNOMED Code(s): 52014545 Code(s): E03.9 - HYPOTHYROIDISM, UNSPECIFIED Status: Chronic Current Visit: Yes Qualifiers: Hypothyroidism type: unspecified Qualified Code(s): E03.9 - Hypothyroidism , unspecified Annotation/Comment:: - TSH mildly elevated. No adjustments indicated; can be rechecked as an outpatient. - Continue levothyroxine. (9) Trisomy 21 SNOMED Code(s): 53910467 Code(s): Q90.9 - DOWN SYNDROME, UNSPECIFIED Status: Chronic Current Visit : Yes (10) Dementia SNOMED Code(s): 52970427 Code(s): F03.90 - UNSPECIFIED DEMENTIA WITHOUT BEHAVIORAL DISTURBANCE Status: Chronic Current Visit: Yes Qualifiers: Dementia type: Alzheimer's disease Alzheimer's disease onset: early-onset Dementia behavioral disturbance: without behavioral disturbance Qualified Code(s): G30.0 - Alzheimer's disease with early onset; F02.80 - Dementia in other diseases classified elsewhere without behavioral disturbance Annotation/Comment:: - Continue donepezil. (11) Bilateral hearing loss SNOMED Code(s): 39613977 Code(s): H91.93 - UNSPECIFIED HEARING LOSS, BILATERAL Status: Chronic Current Visit: Yes Qualifiers: Hearing loss type: unspecified Qualified Code(s): H91.93 - Unspecified hearing loss, bilateral Annotation/Comment:: - Patient does not have her hearing aids with; will see if we can get these from her long-term. (12) Scoliosis SNOMED Code(s): 169067133 Code(s): M41.9 - SCOLIOSIS, UNSPECIFIED Status: Chronic Current Visit: Yes Qualifiers: Scoliosis type: unspecified scoliosis Spinal region: unspecified Qualified Code(s): M41.9 - Scoliosis, unspecified Annotation/Comment:: - Increases risk for pneumonia and limits patient ability to clear secretions. - Will optimize positioning to help with this. (13) Osteoporosis SNOMED Code(s): 66467717 Code(s): M81.0 - AGE-RELATED OSTEOPOROSIS W/O CURRENT PATHOLOGICAL FRACTURE Status: Chronic Current Visit: Yes - Problem List Review Problem List Initiated/Reviewed/Updated: Yes - My Orders Last 24 Hours: My Active Orders 07/25/16 08:30 Enoxaparin [Lovenox] 30 mg SUBCUT DAILY 07/25/16 09:44 Chest 2V [CR] Routine 07/24/16 10:19 EKG 12 Lead [EKG Documentation Completion] [RC] ROUTINE - Assessment Assessment:: 61 yo female admitted with pneumonia diagnosed based on symptoms and fever. Secondary diagnosis of CHF as well. Alertness and urine output have improved in the past 12 hours as well. - Plan Plan:: Continue IV antibiotics. Repeat lasix dose today. Monitor I/O closely. Will try to get a repeat CXR today as well. On lovenox for VTE prophylaxis. Code status is DNR/DNI per paperwork from [facility]. This is confirmed with patient's guardians yesterday as well. Anticipate dismissal in the next 24-48 hours.
[2016-07-25] MEDS: Donepezil 10 MG Tab PO SCH (19:52)
[2016-07-25] MEDS: Acetaminophen 325 MG Tab PO PRN (21:57)
[2016-07-26] MEDS: Albuterol/Ipratropium 3.0-0.5 MG/3 ML Neb Soln NEB SCH ×6 (02:00→22:29)
[2016-07-26] MEDS: cefTRIAXone 1 GM Vial IVPUSH SCH (02:00)
[2016-07-26] MEDS: Sodium Chloride 0.9% 10 ML Syringe FLUSH PRN (02:00)
[2016-07-26] MEDS: Levothyroxine 100 MCG Tab PO SCH (06:25)
[2016-07-26] MEDS: [UNRECOGNIZED DRUG - OTHER] PO SCH ×3 (07:52→19:27)
[2016-07-26] MEDS: Enoxaparin 30 MG/0.3 ML Syringe SUBCUT SCH (07:52)
[2016-07-26] MEDS: A VITE PO SCH (07:53)
[2016-07-26] MEDS: Zinc (Zinc Gluconate) 50 MG Tab PO SCH (07:54)
[2016-07-26] MEDS: Azithromycin 250 MG Tab PO SCH (07:54)
[2016-07-26 08:31] LABS: BASOPHILS PERCENT AUTO 0.3 % (0.2-1.2); EOSINOPHILS PERCENT AUTO 0.3 % (0.0-4.0); HEMATOCRIT 36.1 % (33.0-47.0); LYMPHOCYTES PERCENT AUTO 13.8 % (25.0-50.0); MEAN CORPUSCULAR HEMOGLOBIN 31.7 pg (26.0-32.0); MEAN CORPUSCULAR HGB CONC 33.2 g/dL (32.0-36.0); MEAN CORPUSCULAR VOLUME 95.3 fL (78.0-93.0); MONOCYTES PERCENT AUTO 7.1 % (2.0-11.0); NEUTROPHILS PERCENT AUTO 78.5 % (50.0-80.0); RDW CV 15.2 % (10.0-15.0); RED BLOOD CELL COUNT 3.79 x10^6/uL (4.00-5.50)
--- NOTE | 2016-07-26 08:45 | PCM.PN ---
- General Info Date of Service: 07/26/16 Subjective Update: No overnight events. Patient is resting comfortably in bed this morning. - Review of Systems General: Reports: fever HEENT: Reports: no symptoms Pulmonary: Reports: cough Gastrointestinal: Reports: No symptoms Genitourinary: Reports: no symptoms Skin: Reports: no symptoms - Patient Data Vitals - most recent: Last Vital Signs Temp 36.8 C 07/26/16 05:56 Pulse 75 07/26/16 05:56 Resp 20 07/26/16 05:56 BP 118/61 07/26/16 05:56 Pulse Ox 92 L 07/26/16 05:56 Weight - most recent: 49.895 kg I&O - last 24 hours: Intake & Output 07/25/16 07/26/16 07/26/16 22:59 06:59 14:59 Output Total 250 200 Balance -250 -200 Lab Results last 24 hrs: Laboratory Results - last 24 hr 07/26/16 Range/Units 08:10 WBC 3.9 L (4.0-10.0) x10^3/uL RBC 3.79 L (4.00-5.50) x10^6/uL Hgb 12.0 (12.0-16.0) g/dL Hct 36.1 (33.0-47.0) % MCV 95.3 H (78.0-93.0) fL MCH 31.7 (26.0-32.0) pg MCHC 33.2 (32.0-36.0) g/dL RDW Coeff of [place] 15.2 H (10.0-15.0) % Plt Count 200 (130-400) x10^3/uL Neut % (Auto) 78.5 (50.0-80.0) % Lymph % (Auto) 13.8 L (25.0-50.0) % [place] % (Auto) 7.1 (2.0-11.0) % Eos % (Auto) 0.3 (0.0-4.0) % Baso % (Auto) 0.3 (0.2-1.2) % Med Orders - Current: Current Medications Acetaminophen (Tylenol) 650 mg PO Q4H PRN PRN Reason: Pain (Mild 1-3)/fever Last Admin: 07/25/16 21:57 Dose: 650 mg Acetaminophen (Tylenol) 650 mg RECTAL Q6H PRN PRN Reason: Pain/Fever Albuterol/Ipratropium (Duoneb 3.0-0.5 Mg/3 Ml) 3 ml NEB Q2H PRN PRN Reason: Wheezing Last Admin: 07/24/16 08:36 Dose: 3 ml Albuterol/Ipratropium (Duoneb 3.0-0.5 Mg/3 Ml) 3 ml NEB Q4HRRT [facility] Last Admin: 07/26/16 07:22 Dose: 3 ml Azithromycin (Zithromax) 500 mg PO DAILY [facility] Last Admin: 07/26/16 07:54 Dose: 500 mg Ceftriaxone Sodium (Rocephin) 1 gm IVPUSH Q24H [facility] Last Admin: 07/26/16 02:00 Dose: 1 gm Donepezil HCl (Aricept) 10 mg PO BEDTIME [facility] Last Admin: 07/25/16 19:52 Dose: 10 mg Enoxaparin Sodium (Lovenox) 30 mg SUBCUT DAILY [facility] Last Admin: 07/26/16 07:52 Dose: 30 mg Levothyroxine Sodium (Synthroid) 100 mcg PO ACBREAKFAST [facility] Last Admin: 07/26/16 06:25 Dose: 100 mcg Non-Formulary Medication (Selenium Sulfide [Selsun Blue]) 1 applic TOP WEEKLY [facility] Patient's Own Medication 1 Each [place] 0 each PO TID [facility] Last Admin: 07/26/16 07:52 Dose: 1 each Patient's Own Medication 1 Each Tab-A-Cristóbal 1 each PO DAILY [facility] Last Admin: 07/26/16 07:53 Dose: 1 each Sodium Chloride (Saline Flush) 10 ml FLUSH ASDIRECTED PRN PRN Reason: Keep Vein Open Last Admin: 07/26/16 02:00 Dose: 10 ml Zinc Gluconate (Zinc) 50 mg PO DAILY [facility] Last Admin: 07/26/16 07:54 Dose: 50 mg Discontinued Medications Albuterol/Ipratropium (Duoneb 3.0-0.5 Mg/3 Ml) 3 ml NEB Q4H [facility] Last Admin: 07/25/16 09:36 Dose: Not Given Enoxaparin Sodium (Lovenox) 30 mg SUBCUT DAILY [facility] Last Admin: 07/25/16 09:38 Dose: Not Given Furosemide (Lasix) 10 mg IVPUSH NOW ONE Stop: 07/24/16 09:42 Last Admin: 07/24/16 09:50 Dose: 10 mg Furosemide (Lasix) 10 mg IVPUSH NOW STA Stop: 07/25/16 09:32 Last Admin: 07/25/16 09:53 Dose: 10 mg Sodium Chloride (Normal Saline) 1,000 mls @ 999 mls/hr IV ASDIRECTED [facility] Last Admin: 07/24/16 08:36 Dose: 100 mls/hr Azithromycin 500 mg/ Sodium (Chloride) 250 mls @ 250 mls/hr IV Q24H [facility] Last Admin: 07/24/16 02:49 Dose: 250 mls/hr Sodium Chloride (Normal Saline) 500 mls @ 100 mls/hr IV ASDIRECTED [facility] Last Admin: 07/24/16 00:50 Dose: 100 mls/hr Sodium Chloride (Normal Saline) 500 mls @ 100 mls/hr IV ASDIRECTED [facility] Sodium Chloride (Normal Saline) 500 mls @ 50 mls/hr IV ASDIRECTED [facility] Ondansetron HCl (Zofran) 4 mg IV Q6H PRN PRN Reason: Nausea/Vomiting Vitamin B Complex/Vit C/Vit E/Zinc (Stress Formula With Zinc) 1 tab PO DAILY [facility] - Exam General: cooperative, no acute distress HEENT: Mucous membr. moist/pink Neck: supple, trachea midline. No: lymphadenopathy Lungs: Rhonchi (diffuse, bilateral). No: Crackles, Wheezing Cardiovascular: regular rate, regular rhythm, murmurs Abdomen: bowel sounds present, soft, no tenderness, no distension Extremities: normal pulses, edema (trace bilateral) Skin: warm, dry, intact - Problem List & Annotations (1) Left lower lobe pneumonia SNOMED Code(s): 528991448 Code(s): J18.1 - LOBAR PNEUMONIA, UNSPECIFIED ORGANISM Status: Acute Priority: High Current Visit: Yes Onset Date: ~07/23/16 Qualifiers: Pneumonia type: aspiration pneumonia Aspiration pneumonia type: unspecified Qualified Code(s): J69.0 - Pneumonitis due to inhalation of food and vomit Annotation/Comment:: - Diagnosis based on symptoms and high fever. Had a fever again last night. - Patient does not have risk factors for MRSA necessarily but does have risks for aspiration. As a result, anaerobes should really be covered. - Repeat CXR from yesterday actually shows more infiltrate in the RLL. - Patient's vital signs remain stable. She does not meet any sepsis criteria. - Will transition patient to Augmentin today to cover anaerobes. If she is still febrile overnight tonight, will broaden to zosyn for 24 hours. - Continue azithromycin PO. - She has wheezing with no documentation of prior reactive airways disease; however, this question has been raised on x-rays in the past. Wheezing is improved today. Continue neb treatments. (2) Congestive heart failure SNOMED Code(s): 79471667 Code(s): I50.9 - HEART FAILURE, UNSPECIFIED Status: Acute Current Visit: Yes Qualifiers: Congestive heart failure type: unspecified congestive heart failure type Congestive heart failure chronicity: acute Qualified Code(s): I50.9 - Heart failure, unspecified Annotation/Comment:: - Diagnosis made based on evidence of overload on CXR and elevated BNP. - PA and lateral CXR from yesterday does confirm cardiomegaly and pulmonary edema. - Patient had good response to low dose IV lasix x2. Will dose further lasix today depending on BNP results. - Catheter can be discontinued today given we have documented her response to lasix. - Cause for CHF is likely pneumonia in the setting of known mitral valve disease. ECG was negative for any acute process and patient has no history of CAD or evidence currently of CAD or an arrhythmia. TSH is mildly above the normal range, but not enough to be causing the CHF. Anemia is also not severe enough to be causing this. - Briefly discussed with the family yesterday that even if her mitral valve disease has progressed and is now severe enough, this is a major surgery and likely does not fit with her goals of care at this time. Further discussions can occur as an outpatient and an Echo can be pursued as indicated. (3) Dehydration, mild SNOMED Code(s): 7358973068922 Code(s): E86.0 - DEHYDRATION Status: Resolved Current Visit: Yes Annotation/Comment:: - Patient's PO intake is overall poor but improved from admission. - UOP improved with lasix. - Edema improved today. - CXR from yesterday still showing cardiomegaly and pulmonary edema. - Repeat BNP pending from this am. (4) Cardiomegaly SNOMED Code(s): 9856896 Code(s): I51.7 - CARDIOMEGALY Status: Acute Current Visit: Yes Annotation/Comment:: - See above under CHF. (5) Mitral valve prolapse SNOMED Code(s): 389752035 Code(s): I34.1 - NONRHEUMATIC MITRAL (VALVE) PROLAPSE Status: Chronic Current Visit: Yes Annotation/Comment:: - No apparent issues related to this unless CHF is secondary to this. Patient does have a systolic murmur. - No Echo in the past 5 years. (6) Hypertension SNOMED Code(s): 23227064 Code(s): I10 - ESSENTIAL (PRIMARY) HYPERTENSION Status: Chronic Current Visit: Yes Qualifiers: Hypertension type: essential hypertension Qualified Code(s): I10 - Essential (primary) hypertension Annotation/Comment:: - BPs good during admission. Had 1 lower BP at 90s/60s but was asymptomatic at that time. - Patient is not on any home medications for this. - Will continue to monitor. (7) Impaired fasting glucose SNOMED Code(s): 114371279 Code(s): R73.01 - IMPAIRED FASTING GLUCOSE Status: Chronic Current Visit : Yes Annotation/Comment:: - No need for glucose monitoring. (8) Hypothyroidism SNOMED Code(s): 79049285 Code(s): E03.9 - HYPOTHYROIDISM, UNSPECIFIED Status: Chronic Current Visit: Yes Qualifiers: Hypothyroidism type: unspecified Qualified Code(s): E03.9 - Hypothyroidism , unspecified Annotation/Comment:: - TSH mildly elevated. No adjustments indicated; can be rechecked as an outpatient. - Continue levothyroxine. (9) Trisomy 21 SNOMED Code(s): 59876942 Code(s): Q90.9 - DOWN SYNDROME, UNSPECIFIED Status: Chronic Current Visit : Yes (10) Dementia SNOMED Code(s): 03611150 Code(s): F03.90 - UNSPECIFIED DEMENTIA WITHOUT BEHAVIORAL DISTURBANCE Status: Chronic Current Visit: Yes Qualifiers: Dementia type: Alzheimer's disease Alzheimer's disease onset: early-onset Dementia behavioral disturbance: without behavioral disturbance Qualified Code(s): G30.0 - Alzheimer's disease with early onset; F02.80 - Dementia in other diseases classified elsewhere without behavioral disturbance Annotation/Comment:: - Continue donepezil. (11) Bilateral hearing loss SNOMED Code(s): 13378934 Code(s): H91.93 - UNSPECIFIED HEARING LOSS, BILATERAL Status: Chronic Current Visit: Yes Qualifiers: Hearing loss type: unspecified Qualified Code(s): H91.93 - Unspecified hearing loss, bilateral Annotation/Comment:: - Patient does not have her hearing aids with; will see if we can get these from her shelter. (12) Scoliosis SNOMED Code(s): 853663241 Code(s): M41.9 - SCOLIOSIS, UNSPECIFIED Status: Chronic Current Visit: Yes Qualifiers: Scoliosis type: unspecified scoliosis Spinal region: unspecified Qualified Code(s): M41.9 - Scoliosis, unspecified Annotation/Comment:: - Increases risk for pneumonia and limits patient ability to clear secretions. - Will optimize positioning to help with this. (13) Osteoporosis SNOMED Code(s): 89421991 Code(s): M81.0 - AGE-RELATED OSTEOPOROSIS W/O CURRENT PATHOLOGICAL FRACTURE Status: Chronic Current Visit: Yes - Problem List Review Problem List Initiated/Reviewed/Updated: Yes - My Orders Last 24 Hours: My Active Orders 07/25/16 08:30 Enoxaparin [Lovenox] 30 mg SUBCUT DAILY 07/25/16 09:44 Chest 2V [CR] Routine 07/26/16 08:10 B-TYPE NATRIURETIC PEPTIDE,BNP [CHEM] Routine BASIC METABOLIC PANEL,BMP [CHEM] Routine 07/26/16 08:40 Amoxicillin/Clavulanate K [Augmentin 875 MG/125 MG] 1 tab PO Q12HR - Assessment Assessment:: 61 yo female admitted with pneumonia diagnosed based on symptoms and fever. Secondary diagnosis of CHF as well. Alertness and urine output have improved significantly from admission. - Plan Plan:: Transition to Augmentin + Azithromycin today. Will await BNP results to decide on additional lasix today. Monitor I/O closely but d/c catheter today. On lovenox for VTE prophylaxis. Code status is DNR/DNI per paperwork from [facility]. This is confirmed with patient's guardians on admission as well. Anticipate dismissal tomorrow unless she is febrile again overnight.
[2016-07-26 09:04] LABS: CALCIUM 8.5 mg/dL (8.5-10.1); EST CRCL DRUG DOSING (CG) 41.9 mL/min
[2016-07-26] MEDS: Amoxicillin/Clavulanate K 875-125 MG Tab PO SCH ×2 (11:33→19:26)
[2016-07-26] MEDS: Albuterol/Ipratropium 3.0-0.5 MG/3 ML Neb Soln NEB PRN (12:19)
[2016-07-26] MEDS: Donepezil 10 MG Tab PO SCH (19:26)
[2016-07-26] MEDS ORDERED: predniSONE 20 MG Tab PO ONE (20:00)
[2016-07-26] MEDS: Acetaminophen 325 MG Tab PO PRN (22:39)
[2016-07-27] MEDS: Albuterol/Ipratropium 3.0-0.5 MG/3 ML Neb Soln NEB SCH ×6 (03:12→22:14)
[2016-07-27] MEDS: Levothyroxine 100 MCG Tab PO SCH (06:07)
[2016-07-27 06:39] LABS: BASOPHILS PERCENT AUTO 0.4 % (0.2-1.2); HEMATOCRIT 36.8 % (33.0-47.0); HEMOGLOBIN 12.2 g/dL (12.0-16.0); LYMPHOCYTES PERCENT AUTO 12.3 % (25.0-50.0); MEAN CORPUSCULAR HEMOGLOBIN 31.6 pg (26.0-32.0); MEAN CORPUSCULAR HGB CONC 33.2 g/dL (32.0-36.0); MEAN CORPUSCULAR VOLUME 95.3 fL (78.0-93.0); MONOCYTES PERCENT AUTO 1.5 % (2.0-11.0); NEUTROPHILS PERCENT AUTO 85.8 % (50.0-80.0); RDW CV 15.3 % (10.0-15.0); RED BLOOD CELL COUNT 3.86 x10^6/uL (4.00-5.50)
[2016-07-27 06:59] LABS: CALCIUM 8.7 mg/dL (8.5-10.1); CREATININE 1.5 mg/dL (0.55-1.02); EST CRCL DRUG DOSING (CG) 27.93 mL/min
[2016-07-27] MEDS: Azithromycin 250 MG Tab PO SCH (07:29)
[2016-07-27] MEDS: A VITE PO SCH (07:29)
[2016-07-27] MEDS: Zinc (Zinc Gluconate) 50 MG Tab PO SCH (07:29)
[2016-07-27] MEDS: Amoxicillin/Clavulanate K 875-125 MG Tab PO SCH ×2 (07:29→20:19)
[2016-07-27] MEDS: [UNRECOGNIZED DRUG - OTHER] PO SCH ×3 (07:30→20:20)
[2016-07-27] MEDS: Enoxaparin 30 MG/0.3 ML Syringe SUBCUT SCH (07:30)
[2016-07-27] MEDS ORDERED: predniSONE 20 MG Tab PO ONE (18:05)
[2016-07-27] MEDS: Donepezil 10 MG Tab PO SCH (20:19)
[2016-07-28] MEDS: Albuterol/Ipratropium 3.0-0.5 MG/3 ML Neb Soln NEB SCH ×5 (04:09→18:08)
[2016-07-28] MEDS: Zinc (Zinc Gluconate) 50 MG Tab PO SCH (07:39)
[2016-07-28] MEDS: [UNRECOGNIZED DRUG - OTHER] PO SCH ×3 (07:39→20:17)
[2016-07-28] MEDS: A VITE PO SCH (07:39)
[2016-07-28] MEDS: Levothyroxine 100 MCG Tab PO SCH (07:39)
[2016-07-28] MEDS: Azithromycin 250 MG Tab PO SCH (07:39)
[2016-07-28] MEDS: Amoxicillin/Clavulanate K 875-125 MG Tab PO SCH ×2 (07:39→20:17)
[2016-07-28] MEDS: Enoxaparin 30 MG/0.3 ML Syringe SUBCUT SCH (07:39)
--- NOTE | 2016-07-28 09:59 | PCM.PN ---
- General Info Date of Service: 07/27/16 - Review of Systems Systems Review Comment:: History: She became dyspneic and hypoxic yesterday afternoon and her BNP was elevated so her IV was switched to Saline Lock and she got a dose of Lasix. With that she seemed to improve considerably, is comfortable today, remains on nasal oxygen but her oximetry is about 93%. Nurses say that she looks improved. She is getting IV Unasyn and oral Zithromax. Her lab was abnormal for leukopenia, consistent with viral infection, and for a very mild, probably clinically insignificant, elevation of her TSH, noted by [employer], and appropriately did not make any change yet in her Synthroid dose. - Patient Data Vitals - most recent: Last Vital Signs Temp 36.9 C 07/28/16 05:31 Pulse 78 07/28/16 05:31 Resp 18 07/28/16 05:31 BP 125/56 L 07/28/16 05:31 Pulse Ox 94 L 07/28/16 07:31 Weight - most recent: 49.895 kg I&O - last 24 hours: Intake & Output 07/27/16 07/28/16 07/28/16 22:59 06:59 14:59 Intake Total 90 20 120 Balance 90 20 120 Med Orders - Current: Current Medications Acetaminophen (Tylenol) 650 mg PO Q4H PRN PRN Reason: Pain (Mild 1-3)/fever Last Admin: 07/26/16 22:39 Dose: 650 mg Acetaminophen (Tylenol) 650 mg RECTAL Q6H PRN PRN Reason: Pain/Fever Albuterol/Ipratropium (Duoneb 3.0-0.5 Mg/3 Ml) 3 ml NEB Q2H PRN PRN Reason: Wheezing Last Admin: 07/26/16 12:19 Dose: 3 ml Albuterol/Ipratropium (Duoneb 3.0-0.5 Mg/3 Ml) 3 ml NEB Q4HRRT [facility] Last Admin: 07/28/16 07:30 Dose: 3 ml Amoxicillin/Clavulanate Potassium (Augmentin 875 Mg/125 Mg) 1 tab PO Q12HR [facility] Last Admin: 07/28/16 07:39 Dose: 1 tab Azithromycin (Zithromax) 500 mg PO DAILY [facility] Last Admin: 07/28/16 07:39 Dose: 500 mg Donepezil HCl (Aricept) 10 mg PO BEDTIME [facility] Last Admin: 07/27/16 20:19 Dose: 10 mg Enoxaparin Sodium (Lovenox) 30 mg SUBCUT DAILY [facility] Last Admin: 07/28/16 07:39 Dose: 30 mg Levothyroxine Sodium (Synthroid) 100 mcg PO ACBREAKFAST [facility] Last Admin: 07/28/16 07:39 Dose: 100 mcg Patient's Own Medication 1 Each [place] 0 each PO TID [facility] Last Admin: 07/28/16 07:39 Dose: 1 each Patient's Own Medication 1 Each Tab-A-Cristóbal 1 each PO DAILY [facility] Last Admin: 07/28/16 07:39 Dose: 1 each Sodium Chloride (Saline Flush) 10 ml FLUSH ASDIRECTED PRN PRN Reason: Keep Vein Open Last Admin: 07/26/16 02:00 Dose: 10 ml Zinc Gluconate (Zinc) 50 mg PO DAILY [facility] Last Admin: 07/28/16 07:39 Dose: 50 mg Discontinued Medications Albuterol/Ipratropium (Duoneb 3.0-0.5 Mg/3 Ml) 3 ml NEB Q4H [facility] Last Admin: 07/25/16 09:36 Dose: Not Given Ceftriaxone Sodium (Rocephin) 1 gm IVPUSH Q24H [facility] Last Admin: 07/26/16 02:00 Dose: 1 gm Enoxaparin Sodium (Lovenox) 30 mg SUBCUT DAILY [facility] Last Admin: 07/25/16 09:38 Dose: Not Given Furosemide (Lasix) 10 mg IVPUSH NOW ONE Stop: 07/24/16 09:42 Last Admin: 07/24/16 09:50 Dose: 10 mg Furosemide (Lasix) 10 mg IVPUSH NOW STA Stop: 07/25/16 09:32 Last Admin: 07/25/16 09:53 Dose: 10 mg Sodium Chloride (Normal Saline) 1,000 mls @ 999 mls/hr IV ASDIRECTED [facility] Last Admin: 07/24/16 08:36 Dose: 100 mls/hr Azithromycin 500 mg/ Sodium (Chloride) 250 mls @ 250 mls/hr IV Q24H [facility] Last Admin: 07/24/16 02:49 Dose: 250 mls/hr Sodium Chloride (Normal Saline) 500 mls @ 100 mls/hr IV ASDIRECTED [facility] Last Admin: 07/24/16 00:50 Dose: 100 mls/hr Sodium Chloride (Normal Saline) 500 mls @ 100 mls/hr IV ASDIRECTED [facility] Sodium Chloride (Normal Saline) 500 mls @ 50 mls/hr IV ASDIRECTED [facility] Non-Formulary Medication (Selenium Sulfide [Selsun Blue]) 1 applic TOP WEEKLY [facility] Ondansetron HCl (Zofran) 4 mg IV Q6H PRN PRN Reason: Nausea/Vomiting Prednisone (Prednisone) 40 mg PO ONETIME ONE Stop: 07/26/16 20:01 Last Admin: 07/26/16 19:27 Dose: 40 mg Vitamin B Complex/Vit C/Vit E/Zinc (Stress Formula With Zinc) 1 tab PO DAILY [facility] - Exam Physical Findings Comments:: exam: -As usual she is nonverbal but does attempt to speak -Heart regular, unable to hear heart sounds well over her respiratory noise -Has profuse coarse wheezes and rales but no delay in expiration and not tachypneic -Abdomen soft -Did not examine her heel for which she was seen in the office last week - Problem List Review Problem List Initiated/Reviewed/Updated: Yes - Assessment Assessment:: Impression: -Bronchopneumonia, improving on IV Unasyn and oral Zithromax -CHF, or at least a transient fluid overload, improved with a single dose of diuretic -Down syndrome with dementia - Plan Plan:: Plan: -Continue IV Unasyn and oral Zithromax -Since she will need to continue this for a while, I will not order lab or x- ray for tomorrow -Advised nurse there is no urgency to wean her off of oxygen yet
--- NOTE | 2016-07-28 10:33 | PCM.PN ---
- General Info Date of Service: 07/28/16 - Review of Systems Systems Review Comment:: History: Her oxygenation is improving, down to 1L of oxygen. She is stooling, still has noisy respirations. Nurses noted that she has significant cough now which is good, given all of the respiratory noise, but also that she seemed to cough more after drinking liquids. They tried thickened liquids and it went better. - Patient Data Vitals - most recent: Last Vital Signs Temp 37.1 C 07/28/16 10:00 Pulse 74 07/28/16 10:00 Resp 20 07/28/16 10:00 BP 111/55 L 07/28/16 10:00 Pulse Ox 95 07/28/16 10:00 Weight - most recent: 49.895 kg I&O - last 24 hours: Intake & Output 07/27/16 07/28/16 07/28/16 22:59 06:59 14:59 Intake Total 90 20 120 Balance 90 20 120 Med Orders - Current: Current Medications Acetaminophen (Tylenol) 650 mg PO Q4H PRN PRN Reason: Pain (Mild 1-3)/fever Last Admin: 07/26/16 22:39 Dose: 650 mg Acetaminophen (Tylenol) 650 mg RECTAL Q6H PRN PRN Reason: Pain/Fever Albuterol/Ipratropium (Duoneb 3.0-0.5 Mg/3 Ml) 3 ml NEB Q2H PRN PRN Reason: Wheezing Last Admin: 07/26/16 12:19 Dose: 3 ml Albuterol/Ipratropium (Duoneb 3.0-0.5 Mg/3 Ml) 3 ml NEB Q4HRRT [facility] Last Admin: 07/28/16 07:30 Dose: 3 ml Amoxicillin/Clavulanate Potassium (Augmentin 875 Mg/125 Mg) 1 tab PO Q12HR [facility] Last Admin: 07/28/16 07:39 Dose: 1 tab Azithromycin (Zithromax) 500 mg PO DAILY [facility] Last Admin: 07/28/16 07:39 Dose: 500 mg Calcium Carbonate (Calcium Carbonate/Vitamin D 1250 Mg-200 Unit) 1 tab PO TID [facility] Donepezil HCl (Aricept) 10 mg PO BEDTIME [facility] Last Admin: 07/27/16 20:19 Dose: 10 mg Enalapril Maleate (Vasotec) 2.5 mg PO DAILY [facility] Enoxaparin Sodium (Lovenox) 30 mg SUBCUT DAILY [facility] Last Admin: 07/28/16 07:39 Dose: 30 mg Levothyroxine Sodium (Synthroid) 100 mcg PO ACBREAKFAST [facility] Last Admin: 07/28/16 07:39 Dose: 100 mcg Patient's Own Medication 1 Each [place] 0 each PO TID [facility] Last Admin: 07/28/16 07:39 Dose: 1 each Patient's Own Medication 1 Each Tab-A-Cristóbal 1 each PO DAILY [facility] Last Admin: 07/28/16 07:39 Dose: 1 each Sodium Chloride (Saline Flush) 10 ml FLUSH ASDIRECTED PRN PRN Reason: Keep Vein Open Last Admin: 07/26/16 02:00 Dose: 10 ml Zinc Gluconate (Zinc) 50 mg PO DAILY [facility] Last Admin: 07/28/16 07:39 Dose: 50 mg Discontinued Medications Albuterol/Ipratropium (Duoneb 3.0-0.5 Mg/3 Ml) 3 ml NEB Q4H [facility] Last Admin: 07/25/16 09:36 Dose: Not Given Ceftriaxone Sodium (Rocephin) 1 gm IVPUSH Q24H [facility] Last Admin: 07/26/16 02:00 Dose: 1 gm Enoxaparin Sodium (Lovenox) 30 mg SUBCUT DAILY [facility] Last Admin: 07/25/16 09:38 Dose: Not Given Furosemide (Lasix) 10 mg IVPUSH NOW ONE Stop: 07/24/16 09:42 Last Admin: 07/24/16 09:50 Dose: 10 mg Furosemide (Lasix) 10 mg IVPUSH NOW STA Stop: 07/25/16 09:32 Last Admin: 07/25/16 09:53 Dose: 10 mg Sodium Chloride (Normal Saline) 1,000 mls @ 999 mls/hr IV ASDIRECTED [facility] Last Admin: 07/24/16 08:36 Dose: 100 mls/hr Azithromycin 500 mg/ Sodium (Chloride) 250 mls @ 250 mls/hr IV Q24H [facility] Last Admin: 07/24/16 02:49 Dose: 250 mls/hr Sodium Chloride (Normal Saline) 500 mls @ 100 mls/hr IV ASDIRECTED [facility] Last Admin: 12/31/16 00:50 Dose: 100 mls/hr Sodium Chloride (Normal Saline) 500 mls @ 100 mls/hr IV ASDIRECTED [facility] Sodium Chloride (Normal Saline) 500 mls @ 50 mls/hr IV ASDIRECTED [facility] Non-Formulary Medication (Selenium Sulfide [Selsun Blue]) 1 applic TOP WEEKLY [facility] Ondansetron HCl (Zofran) 4 mg IV Q6H PRN PRN Reason: Nausea/Vomiting Prednisone (Prednisone) 40 mg PO ONETIME ONE Stop: 07/26/16 20:01 Last Admin: 07/26/16 19:27 Dose: 40 mg Vitamin B Complex/Vit C/Vit E/Zinc (Stress Formula With Zinc) 1 tab PO DAILY [facility] - Exam Physical Findings Comments:: Exam: -She is in wheelchair watching television this morning -Still nonverbal but smiles -Respiration is noisy but not labored and not tachypneic -Lots of coarse expiratory wheezes and coarse inspiratory rales -Heart sounds normal and regular -Abdomen soft - Problem List Review Problem List Initiated/Reviewed/Updated: Yes - My Orders Last 24 Hours: My Active Orders 07/28/16 10:25 BASIC METABOLIC PANEL,BMP [CHEM] Routine 07/28/16 12:00 Calcium Carbonate/Vitamin D3 [Calcium 600 + Vit D 400 Softgl] 1 tab PO TID 07/29/16 07:30 CXR [Chest 2V] [CR] Routine CBC WITH AUTO DIFF [HEME] Routine 07/29/16 08:00 Enalapril [Vasotec] 2.5 mg PO DAILY - Assessment Assessment:: Impression: -Bronchopneumonia, improving on IV Unasyn and oral Zithromax -CHF, or at least a transient fluid overload, improved with a single dose of diuretic -Possibility of mild aspiration, cough seems to worsen when drinking thin liquids -Down syndrome with dementia - Plan Plan:: Plan: -Continue IV Unasyn and oral Zithromax -Get BMP and CXR tomorrow -For now will use thickened liquids -Continue weaning from O2
[2016-07-28] MEDS: Calcium Carbonate/Vitamin D3 1250 MG-200 Unit Tab PO SCH ×2 (11:29→20:17)
[2016-07-28] MEDS: Donepezil 10 MG Tab PO SCH (20:17)
[2016-07-29] MEDS: Albuterol/Ipratropium 3.0-0.5 MG/3 ML Neb Soln NEB SCH ×6 (00:48→18:11)
[2016-07-29] MEDS: Levothyroxine 100 MCG Tab PO SCH (06:28)
[2016-07-29 06:55] LABS: HEMATOCRIT 38.4 % (33.0-47.0); HEMOGLOBIN 12.4 g/dL (12.0-16.0); MEAN CORPUSCULAR HEMOGLOBIN 31.1 pg (26.0-32.0); MEAN CORPUSCULAR HGB CONC 32.3 g/dL (32.0-36.0); MEAN CORPUSCULAR VOLUME 96.2 fL (78.0-93.0); RDW CV 15.3 % (10.0-15.0); RED BLOOD CELL COUNT 3.99 x10^6/uL (4.00-5.50)
[2016-07-29 07:10] LABS: CALCIUM 8.9 mg/dL (8.5-10.1); CREATININE 1.1 mg/dL (0.55-1.02); EST CRCL DRUG DOSING (CG) 38.09 mL/min
[2016-07-29 07:35] LABS: BASOPHILS PERCENT MAN 1 % (0-1); BLASTS PERCENT MAN 4 % (0); SEG NEUTROPHILS PERCENT MAN 34 % (50-80); TOTAL CELLS COUNTED 100
[2016-07-29] MEDS ORDERED: Zinc (Zinc Gluconate) 50 MG Tab PO SCH (08:00)
[2016-07-29] MEDS: Amoxicillin/Clavulanate K 875-125 MG Tab PO SCH ×2 (08:41→20:28)
[2016-07-29] MEDS: Zinc (Zinc Gluconate) 50 MG Tab PO SCH (08:41)
[2016-07-29] MEDS: Enoxaparin 30 MG/0.3 ML Syringe SUBCUT SCH (08:41)
[2016-07-29] MEDS: Azithromycin 250 MG Tab PO SCH (08:42)
[2016-07-29] MEDS: Calcium Carbonate/Vitamin D3 1250 MG-200 Unit Tab PO SCH ×3 (08:42→20:28)
[2016-07-29] MEDS: A VITE PO SCH (08:42)
[2016-07-29] MEDS: [UNRECOGNIZED DRUG - OTHER] PO SCH ×3 (08:44→20:29)
--- NOTE | 2016-07-29 11:08 | PCM.PN ---
- General Info Date of Service: 07/29/16 - Review of Systems Systems Review Comment:: History: She remains afebrile and slowly improving. CXR shows mild improvement on both sides, although radiologist notes a burst compression fracture of T6 and a smaller one of T8 which looked chronic, apparently insufficiency fractures from osteoporosis. Nurses anticipate being able to wean her from 02 today. Her last oximetry was 94% on 2 L but she is not very good at leaving the nasal cannula in place and may have actually been on room air, that is unknown. Her neutropenia has improved although WBC is still mildly decreased. BMP unremarkable, the same decrease in GFR, which is at 42. - Patient Data Vitals - most recent: Last Vital Signs Temp 36.7 C 07/29/16 10:00 Pulse 73 07/29/16 10:00 Resp 20 07/29/16 10:00 BP 112/60 07/29/16 10:00 Pulse Ox 95 07/29/16 10:00 Weight - most recent: 49.895 kg I&O - last 24 hours: Intake & Output 07/28/16 07/29/16 07/29/16 22:59 06:59 14:59 Intake Total 120 100 Balance 120 100 Lab Results last 24 hrs: Laboratory Results - last 24 hr 07/29/16 07/29/16 Range/Units 06:40 06:40 WBC 3.2 L (4.0-10.0) x10^3/uL RBC 3.99 L (4.00-5.50) x10^6/uL Hgb 12.4 (12.0-16.0) g/dL Hct 38.4 (33.0-47.0) % MCV 96.2 H (78.0-93.0) fL MCH 31.1 (26.0-32.0) pg MCHC 32.3 (32.0-36.0) g/dL RDW Coeff of Souleymane 15.3 H (10.0-15.0) % Plt Count 227 (130-400) x10^3/uL Add Manual Diff Yes Neutrophils % (Manual) 34 L (50-80) % Lymphocytes % (Manual) 53 H (25-50) % Monocytes % (Manual) 8 (2-11) % Basophils % (Manual) 1 (0-1) % Blast Cells % 4 H (0) % Platelet Estimate Adequate Sodium 142 (136-145) mmol/L Potassium 4.4 (3.5-5.1) mmol/L Chloride 104 (98-107) mmol/L Carbon Dioxide 33 H (21-32) mmol/L BUN 28 H (7-18) mg/dL Creatinine 1.1 H (0.55-1.02) mg/dL Est Cr Clr Drug Dosing 38.09 mL/min Estimated GFR (MDRD) 50 Glucose 89 (74-106) mg/dL Calcium 8.9 (8.5-10.1) mg/dL Med Orders - Current: Current Medications Acetaminophen (Tylenol) 650 mg PO Q4H PRN PRN Reason: Pain (Mild 1-3)/fever Last Admin: 07/26/16 22:39 Dose: 650 mg Acetaminophen (Tylenol) 650 mg RECTAL Q6H PRN PRN Reason: Pain/Fever Albuterol/Ipratropium (Duoneb 3.0-0.5 Mg/3 Ml) 3 ml NEB Q2H PRN PRN Reason: Wheezing Last Admin: 07/26/16 12:19 Dose: 3 ml Albuterol/Ipratropium (Duoneb 3.0-0.5 Mg/3 Ml) 3 ml NEB Q4HRRT [facility] Last Admin: 07/29/16 06:58 Dose: 3 ml Amoxicillin/Clavulanate Potassium (Augmentin 875 Mg/125 Mg) 1 tab PO Q12HR [facility] Last Admin: 07/29/16 08:41 Dose: 1 tab Azithromycin (Zithromax) 500 mg PO DAILY [facility] Last Admin: 07/29/16 08:42 Dose: 500 mg Calcium Carbonate (Calcium Carbonate/Vitamin D 1250 Mg-200 Unit) 1 tab PO TID [facility] Last Admin: 07/29/16 08:42 Dose: 1 tab Donepezil HCl (Aricept) 10 mg PO BEDTIME [facility] Last Admin: 07/28/16 20:17 Dose: 10 mg Enalapril Maleate (Vasotec) 2.5 mg PO DAILY [facility] Last Admin: 07/29/16 08:42 Dose: 2.5 mg Enoxaparin Sodium (Lovenox) 30 mg SUBCUT DAILY [facility] Last Admin: 07/29/16 08:41 Dose: 30 mg Levothyroxine Sodium (Synthroid) 100 mcg PO ACBREAKFAST [facility] Last Admin: 07/29/16 06:28 Dose: 100 mcg Patient's Own Medication 1 Each [place] 0 each PO TID [facility] Last Admin: 07/29/16 08:44 Dose: 1 each Patient's Own Medication 1 Each Tab-A-Cristóbal 1 each PO DAILY [facility] Last Admin: 07/29/16 08:42 Dose: 1 each Sodium Chloride (Saline Flush) 10 ml FLUSH ASDIRECTED PRN PRN Reason: Keep Vein Open Last Admin: 07/26/16 02:00 Dose: 10 ml Zinc Gluconate (Zinc) 50 mg PO DAILY [facility] Last Admin: 07/29/16 08:41 Dose: 50 mg Discontinued Medications Albuterol/Ipratropium (Duoneb 3.0-0.5 Mg/3 Ml) 3 ml NEB Q4H [facility] Last Admin: 07/25/16 09:36 Dose: Not Given Ceftriaxone Sodium (Rocephin) 1 gm IVPUSH Q24H [facility] Last Admin: 07/26/16 02:00 Dose: 1 gm Enoxaparin Sodium (Lovenox) 30 mg SUBCUT DAILY [facility] Last Admin: 07/25/16 09:38 Dose: Not Given Furosemide (Lasix) 10 mg IVPUSH NOW ONE Stop: 07/24/16 09:42 Last Admin: 07/24/16 09:50 Dose: 10 mg Furosemide (Lasix) 10 mg IVPUSH NOW STA Stop: 07/25/16 09:32 Last Admin: 07/25/16 09:53 Dose: 10 mg Sodium Chloride (Normal Saline) 1,000 mls @ 999 mls/hr IV ASDIRECTED [facility] Last Admin: 07/24/16 08:36 Dose: 100 mls/hr Azithromycin 500 mg/ Sodium (Chloride) 250 mls @ 250 mls/hr IV Q24H [facility] Last Admin: 07/24/16 02:49 Dose: 250 mls/hr Sodium Chloride (Normal Saline) 500 mls @ 100 mls/hr IV ASDIRECTED [facility] Last Admin: 07/24/16 00:50 Dose: 100 mls/hr Sodium Chloride (Normal Saline) 500 mls @ 100 mls/hr IV ASDIRECTED [facility] Sodium Chloride (Normal Saline) 500 mls @ 50 mls/hr IV ASDIRECTED [facility] Non-Formulary Medication (Selenium Sulfide [Selsun Blue]) 1 applic TOP WEEKLY [facility] Ondansetron HCl (Zofran) 4 mg IV Q6H PRN PRN Reason: Nausea/Vomiting Prednisone (Prednisone) 40 mg PO ONETIME ONE Stop: 07/26/16 20:01 Last Admin: 07/26/16 19:27 Dose: 40 mg Vitamin B Complex/Vit C/Vit E/Zinc (Stress Formula With Zinc) 1 tab PO DAILY [facility] - Exam Physical Findings Comments:: Exam: -Alert and smiling but nonverbal as before -Heart sounds normal and regular, no ankle edema -Coarse wheezes and coarse rales minimally decreased, still definitely present -No tachypnea or respiratory distress - Problem List Review Problem List Initiated/Reviewed/Updated: Yes - My Orders Last 24 Hours: My Active Orders 07/28/16 10:30 Enalapril [Vasotec] 2.5 mg PO DAILY 07/28/16 12:00 Calcium Carbonate/Vitamin D3 [Calcium Carbonate/Vitamin D 1250 MG-200 Unit] 1 tab PO TID 07/28/16 Lunch Thickened Liquids [DIET] 07/29/16 07:30 CXR [Chest 2V] [CR] Routine - Assessment Assessment:: Impression: -Bronchopneumonia, improving on IV Unasyn and oral Zithromax; CXR shows mild improvement today -CHF, or at least a transient fluid overload, improved with a single dose of diuretic, stable, still cardiomegaly on CXR -Possibility of mild aspiration, getting thickened liquids now -Down syndrome with dementia -Osteoporosis with compression Fx T6 and T8 - Plan Plan:: Plan: -Continue IV Unasyn and oral Zithromax, anticipate switching to oral tomorrow -Try weaning from oxygen today, if unable then she would need Swing Bed over the weekend -Continue thickened liquids -Needs review of her osteoporosis and hypothyroidism on D/C
[2016-07-29] MEDS: Donepezil 10 MG Tab PO SCH (20:28)
[2016-07-30] MEDS: Albuterol/Ipratropium 3.0-0.5 MG/3 ML Neb Soln NEB SCH ×5 (01:58→14:37)
[2016-07-30] MEDS: Amoxicillin/Clavulanate K 875-125 MG Tab PO SCH (10:08)
[2016-07-30] MEDS: Azithromycin 250 MG Tab PO SCH (10:08)
[2016-07-30] MEDS: Zinc (Zinc Gluconate) 50 MG Tab PO SCH (10:08)
[2016-07-30] MEDS: Calcium Carbonate/Vitamin D3 1250 MG-200 Unit Tab PO SCH ×2 (10:08→12:57)
[2016-07-30] MEDS: Enoxaparin 30 MG/0.3 ML Syringe SUBCUT SCH (10:09)
[2016-07-30] MEDS: A VITE PO SCH (10:09)
[2016-07-30] MEDS: [UNRECOGNIZED DRUG - OTHER] PO SCH ×2 (10:10→12:55)
--- NOTE | 2016-07-30 11:17 | PCM.DCSUM1 ---
Discharge Summary - Discharge Data Discharge Date: 07/30/16 Discharge Disposition: DC/Tfer to [facility] Condition: Good - Patient Instructions Diet, Other: Honey-thick liquids - Discharge Plan Prescriptions/Med Rec: Amoxicillin/Clavulanate K [Augmentin 500 MG\125 MG] 1 tab PO Q12HR #10 tablet Home Medications: Home Meds Calcium Carbonate/Vitamin D3 [Calcium 600 + Vit D 400 Softgl] 1 tab PO TID 07/24 [History] Donepezil [Aricept] 10 mg PO BEDTIME 07/24/16 [History] Enalapril [Vasotec] 2.5 mg PO DAILY 07/24/16 [History] Levothyroxine [Synthroid] 100 mcg PO ACBREAKFAST 07/24/16 [History] Multivitamins [Tab-A-Cristóbal] 1 tab PO DAILY 07/24/16 [History] Selenium Sulfide [Selsun Blue] 1 applic TOP WEEKLY 07/24/16 [History] Zinc Gluconate [Zinc] 50 mg PO DAILY 07/24/16 [History] Amoxicillin/Clavulanate K [Augmentin 500 MG\125 MG] 1 tab PO Q12HR #10 tablet [Rx] Forms: ED Department Discharge Referrals: Solomon Smith MD [Primary Care Provider] - - Discharge Summary/Plan Comment Discharge Summary/Plan Comment: Discharge Diagnosis: -Bronchopneumonia -Leukopenia, improved -CHF, with cardiomegaly, improved -Possible mild aspiration Secondary Diagnosis: -Down syndrome -Dementia -Hypothyroidism -Osteoporosis, compression Fx of T6 and T8 noted on CXR, is on Prolia -Hx R heel ulcer, resolved -Hearing loss, wears hearing aids Reason for Admission: Fever and hypoxia, coughing, weakness. Initial Findings: Noisy respiration. Infiltrate and cardiomegaly on CXR. Neutropenia. Dementia , nonverbal. Lab otherwise unremarkable except for TSH which was minimally elevated, 5.1. Treatment and Course in Hospital: She was given IV Unasyn and oral Zithromax. Seem to be not improving at first, CXR showed more cardiomegaly and her IV fluid was DC'd and she was given a single dose of Lasix, improved with that. Continued to have noisy coarse expiratory wheezes and inspiratory rales but was not kept neck. She required O2 at 2 L, finally weaned in the evening of 07/29/16. Nurses felt she might be coughing more while drinking so they tried thickened liquids of honey consistency and she seemed to do better so this was continued. It was noted also that her chest infiltrate was consistent with a mild aspiration. Repeat CXR 07/29/16 showed very slight improvement, still some cardiomegaly. She remained afebrile after the first day. On removing the duodenum which was covering the ulcer of her R heel, it was noted that was completely resolved. Condition on Discharge: -No tachypnea or labored respiration but still has coarse expiratory wheezes and inspiratory rales -Heart sounds normal and regular -Abdomen soft and nontender, she is stooling and eating thickened liquids OK -Skin of her heels is normal, no longer any shallow ulcer on R -She remains nonverbal consistent with her dementia Discharge Plan: -She has finished Zithromax -Oral Augmentin 500 mg BID 5 days -Continue same Synthroid but get another TSH in about 3 months -Continue thickened liquids, honey consistency -No inhaler ordered, probably not helpful since this wheezing is infectious, not asthmatic -Continue code level 2 - Patient Data Vitals - Most Recent: Last Vital Signs Temp 35.5 C 07/30/16 06:00 Pulse 89 07/30/16 06:00 Resp 18 07/30/16 06:00 BP 113/53 L 07/30/16 10:08 Pulse Ox 90 L 07/30/16 07:12 Weight - Most Recent: 49.895 kg I&O - Last 24 hours: Intake & Output 07/29/16 07/30/16 07/30/16 22:59 06:59 14:59 Intake Total 180 Balance 180 Med Orders - Current: Current Medications Acetaminophen (Tylenol) 650 mg PO Q4H PRN PRN Reason: Pain (Mild 1-3)/fever Last Admin: 07/26/16 22:39 Dose: 650 mg Acetaminophen (Tylenol) 650 mg RECTAL Q6H PRN PRN Reason: Pain/Fever Albuterol/Ipratropium (Duoneb 3.0-0.5 Mg/3 Ml) 3 ml NEB Q2H PRN PRN Reason: Wheezing Last Admin: 07/26/16 12:19 Dose: 3 ml Albuterol/Ipratropium (Duoneb 3.0-0.5 Mg/3 Ml) 3 ml NEB Q4HRRT [facility] Last Admin: 07/30/16 10:47 Dose: 3 ml Amoxicillin/Clavulanate Potassium (Augmentin 875 Mg/125 Mg) 1 tab PO Q12HR [facility] Last Admin: 07/30/16 10:08 Dose: 1 tab Azithromycin (Zithromax) 500 mg PO DAILY [facility] Last Admin: 07/30/16 10:08 Dose: 500 mg Calcium Carbonate (Calcium Carbonate/Vitamin D 1250 Mg-200 Unit) 1 tab PO TID [facility] Last Admin: 07/30/16 10:08 Dose: 1 tab Donepezil HCl (Aricept) 10 mg PO BEDTIME [facility] Last Admin: 07/29/16 20:28 Dose: 10 mg Enalapril Maleate (Vasotec) 2.5 mg PO DAILY [facility] Last Admin: 07/30/16 10:08 Dose: 2.5 mg Enoxaparin Sodium (Lovenox) 30 mg SUBCUT DAILY [facility] Last Admin: 07/30/16 10:09 Dose: 30 mg Levothyroxine Sodium (Synthroid) 100 mcg PO ACBREAKFAST [facility] Last Admin: 07/29/16 06:28 Dose: 100 mcg Patient's Own Medication 1 Each [place] 0 each PO TID [facility] Last Admin: 07/30/16 10:10 Dose: 1 each Patient's Own Medication 1 Each Tab-A-Cristóbal 1 each PO DAILY [facility] Last Admin: 07/30/16 10:09 Dose: 1 each Sodium Chloride (Saline Flush) 10 ml FLUSH ASDIRECTED PRN PRN Reason: Keep Vein Open Last Admin: 07/26/16 02:00 Dose: 10 ml Zinc Gluconate (Zinc) 50 mg PO DAILY [facility] Last Admin: 07/30/16 10:08 Dose: 50 mg Discontinued Medications Albuterol/Ipratropium (Duoneb 3.0-0.5 Mg/3 Ml) 3 ml NEB Q4H [facility] Last Admin: 07/25/16 09:36 Dose: Not Given Ceftriaxone Sodium (Rocephin) 1 gm IVPUSH Q24H [facility] Last Admin: 07/26/16 02:00 Dose: 1 gm Enoxaparin Sodium (Lovenox) 30 mg SUBCUT DAILY [facility] Last Admin: 07/25/16 09:38 Dose: Not Given Furosemide (Lasix) 10 mg IVPUSH NOW ONE Stop: 07/24/16 09:42 Last Admin: 07/24/16 09:50 Dose: 10 mg Furosemide (Lasix) 10 mg IVPUSH NOW STA Stop: 07/25/16 09:32 Last Admin: 07/25/16 09:53 Dose: 10 mg Sodium Chloride (Normal Saline) 1,000 mls @ 999 mls/hr IV ASDIRECTED [facility] Last Admin: 07/24/16 08:36 Dose: 100 mls/hr Azithromycin 500 mg/ Sodium (Chloride) 250 mls @ 250 mls/hr IV Q24H [facility] Last Admin: 07/24/16 02:49 Dose: 250 mls/hr Sodium Chloride (Normal Saline) 500 mls @ 100 mls/hr IV ASDIRECTED [facility] Last Admin: 07/24/16 00:50 Dose: 100 mls/hr Sodium Chloride (Normal Saline) 500 mls @ 100 mls/hr IV ASDIRECTED MINDA Sodium Chloride (Normal Saline) 500 mls @ 50 mls/hr IV ASDIRECTED [facility] Non-Formulary Medication (Selenium Sulfide [Selsun Blue]) 1 applic TOP WEEKLY [facility] Ondansetron HCl (Zofran) 4 mg IV Q6H PRN PRN Reason: Nausea/Vomiting Prednisone (Prednisone) 40 mg PO ONETIME ONE Stop: 07/26/16 20:01 Last Admin: 07/26/16 19:27 Dose: 40 mg Vitamin B Complex/Vit C/Vit E/Zinc (Stress Formula With Zinc) 1 tab PO DAILY [facility] *Q Meaningful Use (DIS) - VTE *Q VTE Criteria *Q: VTE Mechanical Contraindications *Q: At Risk for Falls - Stroke *Q Stroke Criteria *Q: - AMI *Q AMI Criteria *Q:
[2016-07-30] MEDS: Levothyroxine 100 MCG Tab PO SCH (12:55)
[2016-07-30 13:05] VITALS: BP 100/55
== END 2016-07-30 15:15 | DRG 179 ==
LOC: VM.ED 22:12 → VM.MS 07-24 00:10 → OBSVTOIN 07-24 08:00
PROVIDERS: ADMIT Nurse Practitioner Family; ATTEND Family Medicine
DX: E86.0 Dehydration (principal); J69.0 Pneumonitis due to inhalation of food and vomit; R50.9 Fever, unspecified; R53.83 Other fatigue; R41.82 Altered mental status, unspecified; R53.1 Weakness; J18.1 Lobar pneumonia, unspecified organism; I10 Essential (primary) hypertension; M81.0 Age-related osteoporosis without current pathological fracture; E03.9 Hypothyroidism, unspecified; I50.9 Heart failure, unspecified; Q90.9 Down syndrome, unspecified; F03.90 Unspecified dementia, unspecified severity, without behavioral disturbance, psychotic disturbance, mood disturbance, and anxiety; I51.7 Cardiomegaly; I34.1 Nonrheumatic mitral (valve) prolapse; H91.93 Unspecified hearing loss, bilateral; M41.9 Scoliosis, unspecified; Z66 Do not resuscitate
CPT/HCPCS: 51702; 71010; 80048; 80053; 81001; 83605; 83880; 85025 ×2; 86140; 87040 ×2; 87804 ×2; 96365; 96366; 99284; A9270; J0456; J0696; J7030; J7040; J7050; 36415; 71020; 82803; 84443; 93005; 94640; 94760; 97003-GO; 97161-GP; J1650; J1940

== ENCOUNTER 2016-09-25 15:41 | Emergency (ER) | payer MEDICARE, MEDICAID ==
[2016-09-25 17:21] VITALS: BP 90/66
[2016-09-25 17:26] LABS: CHLORIDE,CL 110 mmol/L (98-107); SODIUM,NA 147 mmol/L (136-145)
--- NOTE | 2016-09-27 10:33 | ER ---
Date of Service: 09/25/2016 REASON FOR VISIT: Seizure activity. HISTORY: A 61-year-old, white female, resident of the [facility], was brought to the emergency room by ambulance. [facility] staff had just brought her back from a . In the [facility], she was sitting in a wheelchair, was note to have what appeared to be seizure activity where she threw herself back in her chair and flung her arms out and slung her head back. Symptoms lasted about 15-20 seconds and then resolved. She has had no history of prior seizure activity that has been noted. She denied any recent illness. She had been hospitalized in late 06/2016 for pneumonia, but that since have been resolved. She had not had any incontinence. PAST MEDICAL HISTORY: Her diagnosis includes Down syndrome, dementia, hypothyroidism, hypertension, cardiomegaly, congestive heart failure. MEDICATIONS: Include hydrochlorothiazide, zinc sulfate, multivitamin, levothyroxine, and benazepril. ALLERGIES: None known. OBJECTIVE: General: She is awake, she is nonverbal. Vital Signs: Temperature 96.6, pulse of 86, blood pressure 90/66, it did improve to 120 systolic range. Respirations are 20, O2 saturations are 98%. HEENT: Pupils unremarkable. TMs negative. Throat clear. NECK: NO adenopathy. Supple without resistance. HEART: Regular rate and rhythm. LUNGS: Clear to auscultation. ABDOMEN: Soft, nontender. No masses. EXTREMITIES: Warm and dry. No edema. LABORATORY DATA: White count is 2.3 which is stable from her, hemoglobin 12.0. Electrolytes are normal. Creatinine is 1.1, glucose is 108, lactic acid 2.2, magnesium 1.7, calcium is normal. Liver tests are normal. CT scan of her head noncontrast, report is negative by Teleradiography. I did contact Dr. Kauffman of Neurology at [facility], discussed this situation with him. He did not feel that patient needs to be started on any seizure medication after the first seizure. If there is a second seizure, he would then recommend beginning a medication and have Neurology consultation. ASSESSMENT: New onset seizure. PLAN: [facility] staff were reassured and will continue to monitor the patient at [facility] and placed on seizure precautions. Follow up with her primary provider, Dr. Smith next week. Return if any further seizure activity for further evaluation. FM: 09/25/2016 18:44:51 MODL: 09/25/2016 22:20:31 /[id number]
== END 2016-09-25 19:00 | disposition home or self-care (01) ==
LOC: VM.ED 15:41 → SUPCPDRO 15:41 → VM.ED 19:00
DX: R56.9 Unspecified convulsions (principal); E03.9 Hypothyroidism, unspecified; I11.0 Hypertensive heart disease with heart failure
CPT/HCPCS: 36415; 70450; 71010; 80053; 83605; 83735; 85025; 93005; 99284-GF; 99285

== ENCOUNTER 2018-01-07 08:57 | Observation (INO) | payer MEDICARE, MEDICAID ==
[2018-01-07] MEDS ORDERED: Sodium Chloride 0.9% 10 ML Syringe FLUSH PRN (09:16)
[2018-01-07 10:34] LABS: CHLORIDE,CL 103 mmol/L (98-107); SODIUM,NA 141 mmol/L (136-145)
[2018-01-07] MEDS ORDERED: Sodium Chloride 0.9% 1,000 ML IV ONE (11:02)
[2018-01-07] MEDS: Multivitamins with Iron/Calcium/Folic Acid/Minerals Tab PO SCH (16:29)
[2018-01-07] MEDS: Zinc (Zinc Gluconate) 50 MG Tab PO SCH (16:29)
[2018-01-07] MEDS ORDERED: SELENIUM SULFIDE TOP SCH (20:00)
[2018-01-07] MEDS: levETIRAcetam 500 MG Tab PO SCH (20:44)
[2018-01-07] MEDS: HERBAL PO SCH (20:45)
[2018-01-07] MEDS: FOLIC ACID PO SCH (20:45)
[2018-01-07] MEDS: MULTIVIT PO SCH (20:45)
[2018-01-08] MEDS ORDERED: Albuterol/Ipratropium 3.0-0.5 MG/3 ML Neb Soln NEB ONE (07:45)
[2018-01-08] MEDS ORDERED: Albuterol/Ipratropium 3.0-0.5 MG/3 ML Neb Soln ONE (07:49)
[2018-01-08] MEDS ORDERED: Furosemide 40 MG/4 ML VIAL IV ONE (10:22)
[2018-01-08] MEDS: Levothyroxine 100 MCG Tab PO SCH (10:52)
[2018-01-08] MEDS: levETIRAcetam 500 MG Tab PO SCH ×2 (10:53→19:51)
[2018-01-08] MEDS: Memantine 10 MG Tab PO SCH (10:55)
[2018-01-08] MEDS: MULTIVIT PO SCH ×3 (10:58→19:52)
[2018-01-08] MEDS: FOLIC ACID PO SCH ×3 (10:58→19:52)
[2018-01-08] MEDS: HERBAL PO SCH ×3 (10:58→19:52)
[2018-01-08] MEDS: Multivitamins with Iron/Calcium/Folic Acid/Minerals Tab PO SCH (10:58)
[2018-01-08] MEDS: Zinc (Zinc Gluconate) 50 MG Tab PO SCH (10:59)
[2018-01-08] MEDS: Hydrochlorothiazide 12.5 MG Cap PO SCH (10:59)
[2018-01-08] MEDS ORDERED: Furosemide 40 MG Tab PO ONE (11:02)
--- NOTE | 2018-01-08 18:07 | EDM.PDOC ---
ED HPI GENERAL MEDICAL PROBLEM - General Chief Complaint: Neurological Problem Time Seen by Provider: 01/07/18 08:57 Source of Information: Reports: EMS, RN Notes Reviewed, Other (halfway staff) History Limitations: Reports: No Limitations - History of Present Illness INITIAL COMMENTS - FREE TEXT/NARRATIVE: Pt. has been declining for some time, according to staff. They stated that the pt. had a seizure that lasted approx. 1 min. She has a seizure history, but they are infrequent and they have no protocol. Staff states that over the past several months she has been much more somnolent and sleeps most of the day. She has a history of aspiration in the past and is on thin liquids. Staff states that she has not recently been experiencing any fever or chills. She is non-verbal and has not been indicating that she is in any discomfort or distress. She wears an brief and staff has not noticed if her urine has been concentrated. Location: Reports: Generalized Associated Symptoms: Reports: Weakness - Related Data Allergies Allergy/AdvReac Type Severity Reaction Status Date / Time No Known Allergies Allergy Verified 01/07/18 11:42 Home Meds: Home Meds Levothyroxine [Synthroid] 100 mcg PO ACBREAKFAST 07/24/16 [History] Multivitamins [Tab-A-Cristóbal] 1 tab PO DAILY 07/24/16 [History] Selenium Sulfide [Selsun Blue] 1 applic TOP WEEKLY 07/24/16 [History] Zinc Gluconate [Zinc] 50 mg PO DAILY 07/24/16 [History] Hydrochlorothiazide 12.5 mg PO DAILY 09/25/16 [History] Memantine [Namenda] 5 mg PO DAILY 01/07/18 [History] Multivit/Folic Acid/Herbal 275 [[place] Mult Vitamin Plus Liq] 15 ml PO TID [History] levETIRAcetam [Keppra] 250 mg PO BID 01/07/18 [History] Past Medical History HEENT History: Reports: Cataract, Hard of Hearing, Otitis Media Cardiovascular History: Reports: Heart Murmur, Hypertension, Other (See Below) Other Cardiovascular History: Mitral Valve Prolapse Respiratory History: Reports: Pneumonia, Recurrent Other Respiratory History: admitted with pneumonia Gastrointestinal History: Reports: Fecal Incontinence Genitourinary History: Reports: Urinary Incontinence Other Genitourinary History: ramirez catheter inserted in ED prior to admit to floor Other OB/BYN History: information from halfway caregiver Musculoskeletal History: Reports: Other (See Below) Other Musculoskeletal History: Congenital hip dislocation, fracture of right lower leg. Neurological History: Reports: Seizure Other Neuro History: Downs Syndrome Psychiatric History: Reports: Dementia, Learning Disability Other Psychiatric History: down's syndrome. information from halfway caregiver Endocrine/Metabolic History: Reports: Hypothyroidism Other Hematologic History: information from halfway caregiver Other Immunologic History: information from halfway caregiver Dermatologic History: Reports: Decubitus Ulcer, Seborrheic Dermatitis, Other ( See Below) Other Dermatologic History: Chronic dermatitis of feet, pressure ulcer right heel - Past Surgical History Head Surgeries/Procedures: Reports: None HEENT Surgical History: Reports: Oral Surgery GI Surgical History: Reports: Cholecystectomy Musculoskeletal Surgical History: Reports: Hip Replacement Oncologic Surgical History: Reports: None Other Oncologic Surgeries/Procedures: information from halfway caregiver Social & Family History - Family History Family Medical History: Noncontributory HEENT: Reports: None Cardiac: Reports: None Respiratory: Reports: None GI: Reports: None : Reports: None OBGYN: Reports: None Musculoskeletal: Reports: None Neurological: Reports: None Psychiatric: Reports: None Endocrine/Metabolic: Reports: None Hematologic: Reports: None Immunologic: Reports: None Dermatologic: Reports: None Other Dermatologic Family History: information from halfway caregiver Oncologic: Reports: None - Tobacco Use Smoking Status *Q: Current Status Unknown - Caffeine Use Caffeine Use: Reports: None - Sexual History Sexual History: Reports: None - Living Situation & Occupation Living situation: Reports: Single, Extended Care Facility Occupation: Disabled ED ROS GENERAL - Review of Systems Review Of Systems: Unable To Obtain ED EXAM, GENERAL - Physical Exam Exam: See Below Exam Limited By: Altered Mental Status General Appearance: Alert, No Apparent Distress, Obtunded Eye Exam: Bilateral Eye: EOMI, Normal Fundi, Normal Inspection, PERRL Ears: Normal External Exam, Normal Canal, Hearing Grossly Normal, Normal TMs Ear Exam: Bilateral Ear: Auricle Normal, Canal Normal, TM normal Nose: Normal Inspection, Normal Mucosa, No Blood Throat/Mouth: Normal Inspection, Normal Lips, Normal Gums, Normal Oropharynx, No Airway Compromise Head: Atraumatic, Normocephalic Neck: Normal Inspection, Supple, Non-Tender, Limited Range of Motion. No: Carotid Bruit, Lymphadenopathy (L), Lymphadenopathy (R) Respiratory/Chest: No Respiratory Distress, No Accessory Muscle Use, Chest Non- Tender, Decreased Breath Sounds, Crackles, Rales. No: Respiratory Distress Cardiovascular: Normal Peripheral Pulses, Regular Rate, Rhythm, No Edema, No JVD , No Rub, Diastolic Murmur Peripheral Pulses: 4+: Radial (L), Radial (R) GI/Abdominal: Normal Bowel Sounds, Soft, Non-Tender, No Organomegaly, No Distention, No Abnormal Bruit, No Mass (Female) Exam: Deferred Rectal (Female) Exam: Deferred Back Exam: Normal Inspection, Full Range of Motion, NT Extremities: Normal Inspection, Normal Range of Motion, Non-Tender, Normal Capillary Refill, No Pedal Edema Neurological: Alert, Oriented, CN II-XII Intact, Normal Cognition, Normal Gait, Normal Reflexes, No Motor/Sensory Deficits Psychiatric: Normal Affect, Normal Mood Skin Exam: Warm, Dry, Intact, Normal Color, No Rash Lymphatic: No Adenopathy EKG INTERPRETATION Rhythm: NSR [place]: Normal P-Wave: Present QRS: Normal ST-T: Normal QT: Normal Course - Vital Signs Last Recorded V/S: Last Vital Signs Temp 37.1 C 01/08/18 14:00 Pulse 88 01/08/18 14:00 Resp 18 01/08/18 14:00 BP 106/51 L 01/08/18 14:00 Pulse Ox 99 01/08/18 14:00 - Orders/Labs/Meds Orders: Medication Orders Hydrochlorothiazide (Hydrochlorothiazide) 12.5 mg PO DAILY [facility] Last Admin: 01/08/18 10:59 Dose: 12.5 mg Levetiracetam (Keppra) 250 mg PO BID [facility] Last Admin: 01/08/18 10:53 Dose: 250 mg Admin: 01/07/18 20:44 Dose: 250 mg Levothyroxine Sodium (Synthroid) 100 mcg PO ACBREAKFAST [facility] Last Admin: 01/08/18 10:52 Dose: 100 mcg Memantine (Namenda) 5 mg PO DAILY [facility] Last Admin: 01/08/18 10:55 Dose: 5 mg Multivitamins/Minerals (Thera M Plus) 1 tab PO DAILY [facility] Last Admin: 01/08/18 10:58 Dose: 1 tab Admin: 01/07/18 16:29 Dose: 1 tab Multivit/Folic Acid/Herbal 275 [Cece Mult Vitamin Plu Own Med 15 ml PO TID [facility] Last Admin: 01/08/18 11:55 Dose: Admin: 01/08/18 10:58 Dose: Admin: 01/07/18 20:45 Dose: Selenium Sulfide [ Selsun Blue] 1 ApplicOwn Med 1 applic TOP Q7D [facility] Last Admin: 01/07/18 20:45 Dose: Sodium Chloride (Saline Flush) 10 ml FLUSH ASDIRECTED PRN PRN Reason: Keep Vein Open Zinc Gluconate (Zinc) 50 mg PO DAILY [facility] Last Admin: 01/08/18 10:59 Dose: 50 mg Admin: 01/07/18 16:29 Dose: 50 mg Labs: Laboratory Tests 01/07/18 01/07/1818 Range/Units 09:45 09:58 09:58 WBC 2.0 L (4.0-10.0) x10^3/uL RBC 3.94 L (4.00-5.50) x10^6/uL Hgb 12.8 (12.0-16.0) g/dL Hct 37.9 (33.0-47.0) % MCV 96.2 H (78.0-93.0) fL MCH 32.5 H (26.0-32.0) pg MCHC 33.8 (32.0-36.0) g/dL RDW Coeff of Souleymane 13.4 (10.0-15.0) % Plt Count 167 (130-400) x10^3/uL Add Manual Diff Yes Neutrophils % (Manual) 46 L (50-80) % Band Neutrophils % 2 (0-6) % Lymphocytes % (Manual) 43 (25-50) % Monocytes % (Manual) 8 (2-11) % Eosinophils % (Manual) 1 (0-4) % Platelet Estimate Adequate Giant Platelets Rare H Macrocytosis 1+ slight H PT 10.9 (9.6-11.4) SEC INR 1.0 L (2.0-3.5) Sodium (136-145) mmol/L Potassium (3.5-5.1) mmol/L Chloride (98-107) mmol/L Carbon Dioxide (21-32) mmol/L Anion Gap (10-20) mmol/L BUN (7-18) mg/dL Creatinine (0.55-1.02) mg/dL Est Cr Clr Drug Dosing mL/min Estimated GFR (MDRD) Glucose (74-106) mg/dL Lactic Acid (0.4-2.0) mmol/L Calcium (8.5-10.1) mg/dL Corrected Calcium (8.5-10.1) mg/dL Phosphorus (2.6-4.7) mg/dL Magnesium (1.8-2.4) mg/dL Total Bilirubin (0.2-1.0) mg/dL AST (15-37) U/L ALT (14-59) U/L Alkaline Phosphatase (46-116) U/L Troponin I (<=0.056) ng/mL NT-Pro-B Natriuret Pep (<=125) pg/mL Total Protein (6.4-8.2) g/dL Albumin (3.4-5.0) g/dL Globulin Albumin/Globulin Ratio TSH, Ultra Sensitive (0.358-3.74) uIU/mL Urine Color Yellow (YELLOW) Urine Appearance Slightly cloudy H (CLEAR) Urine pH 6.0 (5.0-8.0) Ur Specific [place] 1.020 Urine Protein 30 H (NEGATIVE) mg/dL Urine Glucose (UA) Negative (NEGATIVE) mg/dL Urine Ketones Negative (NEGATIVE) mg/dL Urine Occult Blood Trace-intact H (NEGATIVE) Urine Nitrite Negative (NEGATIVE) Urine Bilirubin Negative (NEGATIVE) Urine Urobilinogen 0.2 (0.2) EU/dL Ur Leukocyte Esterase Negative (NEGATIVE) Urine RBC 0-5 (NOT SEEN) /HPF Urine WBC 0-5 (NOT SEEN) /HPF Ur Squamous Epith Cells Moderate H (NEGATIVE) /HPF Urine Bacteria Few H (NEGATIVE) /HPF Hyaline Casts Few H (NEGATIVE) /HPF Urine Mucus Not seen (NEGATIVE) /LPF 01/07/18 01/07/18 01/07/18 Range/Units 09:58 09:58 09:58 WBC (4.0-10.0) x10^3/uL RBC (4.00-5.50) x10^6/uL Hgb (12.0-16.0) g/dL Hct (33.0-47.0) % MCV (78.0-93.0) fL MCH (26.0-32.0) pg MCHC (32.0-36.0) g/dL RDW Coeff of [place] (10.0-15.0) % Plt Count (130-400) x10^3/uL Add Manual Diff Neutrophils % (Manual) (50-80) % Band Neutrophils % (0-6) % Lymphocytes % (Manual) (25-50) % Monocytes % (Manual) (2-11) % Eosinophils % (Manual) (0-4) % Platelet Estimate Giant Platelets Macrocytosis PT (9.6-11.4) SEC INR (2.0-3.5) Sodium 141 (136-145) mmol/L Potassium 3.8 (3.5-5.1) mmol/L Chloride 103 (98-107) mmol/L Carbon Dioxide 31 (21-32) mmol/L Anion Gap 10.8 (10-20) mmol/L BUN 19 H (7-18) mg/dL Creatinine 1.1 H (0.55-1.02) mg/dL Est Cr Clr Drug Dosing 37.60 mL/min Estimated GFR (MDRD) 50 Glucose 102 (74-106) mg/dL Lactic Acid 2.7 H* (0.4-2.0) mmol/L Calcium 9.2 (8.5-10.1) mg/dL Corrected Calcium 10.32 H (8.5-10.1) mg/dL Phosphorus 2.9 (2.6-4.7) mg/dL Magnesium 2.1 (1.8-2.4) mg/dL Total Bilirubin 0.4 (0.2-1.0) mg/dL AST 29 (15-37) U/L ALT 32 (14-59) U/L Alkaline Phosphatase 112 (46-116) U/L Troponin I < 0.017 (<=0.056) ng/mL NT-Pro-B Natriuret Pep 438 H (<=125) pg/mL Total Protein 7.5 (6.4-8.2) g/dL Albumin 2.6 L (3.4-5.0) g/dL Globulin 4.9 Albumin/Globulin Ratio 0.53 TSH, Ultra Sensitive 10.351 H (0.358-3.74) uIU/mL Urine Color (YELLOW) Urine Appearance (CLEAR) Urine pH (5.0-8.0) Ur Specific [place] Urine Protein (NEGATIVE) mg/dL Urine Glucose (UA) (NEGATIVE) mg/dL Urine Ketones (NEGATIVE) mg/dL Urine Occult Blood (NEGATIVE) Urine Nitrite (NEGATIVE) Urine Bilirubin (NEGATIVE) Urine Urobilinogen (0.2) EU/dL Ur Leukocyte Esterase (NEGATIVE) Urine RBC (NOT SEEN) /HPF Urine WBC (NOT SEEN) /HPF Ur Squamous Epith Cells (NEGATIVE) /HPF Urine Bacteria (NEGATIVE) /HPF Hyaline Casts (NEGATIVE) /HPF Urine Mucus (NEGATIVE) /LPF Meds: Medications Generic Name Dose Route Start Last Admin Trade Name Freq PRN Reason Stop Dose Admin Hydrochlorothiazide 12.5 mg 01/08/18 08:00 01/08/18 10:59 Hydrochlorothiazide PO 12.5 mg DAILY MINDA Administration Levetiracetam 250 mg 01/07/18 20:00 01/08/18 10:53 Keppra PO 250 mg BID MINDA Administration Levothyroxine Sodium 100 mcg 01/08/18 07:00 01/08/18 10:52 Synthroid PO 100 mcg ACBREAKFAST MINDA Administration Memantine 5 mg 01/08/18 08:00 01/08/18 10:55 Namenda PO 5 mg DAILY MINDA Administration Multivitamins/Minerals 1 tab 01/07/18 14:30 01/08/18 10:58 Thera M Plus PO 1 tab DAILY MINDA Administration Multivit/Folic Acid/ 15 ml 01/07/18 20:00 01/08/18 11:55 Herbal 275 [[place] PO Not Given Mult Vitamin Plu TID MINDA Own Med Selenium Sulfide [ 1 applic 01/07/18 20:00 01/07/18 20:45 Selsun Blue] 1 TOP Not Given ApplicOwn Med Q7D [facility] Sodium Chloride 10 ml 01/07/18 09:16 Saline Flush FLUSH ASDIRECTED PRN Keep Vein Open Zinc Gluconate 50 mg 01/07/18 13:15 01/08/18 10:59 Zinc PO 50 mg DAILY MINDA Administration Discontinued Medications Generic Name Dose Route Start Last Admin Trade Name Freq PRN Reason Stop Dose Admin Albuterol/Ipratropium 3 ml 01/08/18 07:45 01/08/18 07:59 Duoneb 3.0-0.5 Mg/3 Ml NEB 01/08/18 07:46 3 ml ONETIME ONE Administration Albuterol/Ipratropium Confirm 01/08/18 07:49 01/08/18 08:01 Duoneb 3.0-0.5 Mg/3 Ml Administered 01/08/18 07:50 Not Given Dose 3 ml .ROUTE .STK-MED ONE Furosemide 40 mg 01/08/18 10:22 01/08/18 11:12 Lasix IV 01/08/18 10:23 Not Given ONETIME ONE Furosemide 40 mg 01/08/18 11:02 01/08/18 11:14 Lasix PO 01/08/18 11:03 40 mg ONETIME ONE Administration Sodium Chloride 1,000 mls @ 1,000 mls/hr 01/07/18 11:02 01/07/18 09:50 Normal Saline IV 01/07/18 12:01 1,000 mls/hr .BOLUS ONE Administration - Radiology Interpretation Free Text/Narrative:: CXR is negative other than some mild fluid overload. No infiltrate noted. Departure - Departure Time of Disposition: 11:15 Disposition: Refer to Observation Clinical Impression: CHF exacerbation - Discharge Information - Problem List & Annotations (1) Cardiomegaly SNOMED Code(s): 0023632 Code(s): I51.7 - CARDIOMEGALY Status: Acute Current Visit: No Annotation/Comment:: - See above under CHF. (2) Congestive heart failure SNOMED Code(s): 96955802 Code(s): I50.9 - HEART FAILURE, UNSPECIFIED Status: Acute Current Visit: No Annotation/Comment:: - Diagnosis made based on evidence of overload on CXR and elevated BNP. - PA and lateral CXR from yesterday does confirm cardiomegaly and pulmonary edema. - Patient had good response to low dose IV lasix x2. Will dose further lasix today depending on BNP results. - Catheter can be discontinued today given we have documented her response to lasix. - Cause for CHF is likely pneumonia in the setting of known mitral valve disease. ECG was negative for any acute process and patient has no history of CAD or evidence currently of CAD or an arrhythmia. TSH is mildly above the normal range, but not enough to be causing the CHF. Anemia is also not severe enough to be causing this. - Briefly discussed with the family yesterday that even if her mitral valve disease has progressed and is now severe enough, this is a major surgery and likely does not fit with her goals of care at this time. Further discussions can occur as an outpatient and an Echo can be pursued as indicated. Qualifiers: Heart failure chronicity: acute - Assessment/Plan Plan: Pt. admitted observation. Code 3. Will trend troponins and lactic acid and monitor for further seizure activity. SCD for dvt prophylaxis. Repeat CXR in AM.
--- NOTE | 2018-01-08 18:20 | PCM.PN ---
- General Info Date of Service: 01/08/18 Admission Dx/Problem (Free Text): Overall pt. had a good day. Nursing staff related that the pt. was minimally responsive at shift change, however. She was doing well during the day yesterday. She continues to be minimally responsive. On exam this AM, her mental status unchanged and she didn't appear to be in any increased respiratory distress. She was placed on O2 per NC at 4L./min and is maintaining O2 sats of 98%-99%. - Review of Systems General: Reports: Weakness, Fatigue HEENT: Reports: No Symptoms Pulmonary: Reports: Shortness of Breath Cardiovascular: Reports: No Symptoms Gastrointestinal: Reports: No Symptoms Genitourinary: Reports: No Symptoms Musculoskeletal: Reports: No Symptoms Skin: Reports: No Symptoms Neurological: Reports: Confusion Psychiatric: Reports: No Symptoms - Patient Data Vitals - Most Recent: Last Vital Signs Temp 37.2 C 01/08/18 18:00 Pulse 87 01/08/18 18:00 Resp 20 01/08/18 18:00 BP 100/48 L 01/08/18 18:00 Pulse Ox 90 L 01/08/18 18:00 Weight - Most Recent: 53.524 kg I&O - Last 24 Hours: Intake & Output 01/08/18 01/08/18 01/08/18 06:59 14:59 22:59 Intake Total 62 Output Total 150 800 Balance -88 -800 Lab Results Last 24 Hours: Laboratory Results - last 24 hr 01/07/18 01/08/18 01/08/18 Range/Units 18:09 07:40 07:40 WBC 3.4 L (4.0-10.0) x10^3/uL RBC 3.73 L (4.00-5.50) x10^6/uL Hgb 12.2 (12.0-16.0) g/dL Hct 36.0 (33.0-47.0) % MCV 96.5 H (78.0-93.0) fL MCH 32.7 H (26.0-32.0) pg MCHC 33.9 (32.0-36.0) g/dL RDW Coeff of Souleymane 13.9 (10.0-15.0) % Plt Count 167 (130-400) x10^3/uL Neut % (Auto) 65.6 (50.0-80.0) % Lymph % (Auto) 22.1 L (25.0-50.0) % [place] % (Auto) 10.5 (2.0-11.0) % Eos % (Auto) 0.6 (0.0-4.0) % Baso % (Auto) 1.2 (0.2-1.2) % Sodium 141 (136-145) mmol/L Potassium 3.5 (3.5-5.1) mmol/L Chloride 105 (98-107) mmol/L Carbon Dioxide 28 (21-32) mmol/L Anion Gap 11.5 (10-20) mmol/L BUN 18 (7-18) mg/dL Creatinine 1.2 H (0.55-1.02) mg/dL Est Cr Clr Drug Dosing 34.47 mL/min Estimated GFR (MDRD) 45 Glucose 103 (74-106) mg/dL Lactic Acid 1.0 (0.4-2.0) mmol/L Calcium 8.3 L (8.5-10.1) mg/dL Corrected Calcium 9.42 (8.5-10.1) mg/dL Total Bilirubin 0.3 (0.2-1.0) mg/dL AST 29 (15-37) U/L ALT 30 (14-59) U/L Alkaline Phosphatase 105 (46-116) U/L Total Protein 6.9 (6.4-8.2) g/dL Albumin 2.6 L (3.4-5.0) g/dL Globulin 4.3 Albumin/Globulin Ratio 0.60 /17/18 Range/Units 07:40 WBC (4.0-10.0) x10^3/uL RBC (4.00-5.50) x10^6/uL Hgb (12.0-16.0) g/dL Hct (33.0-47.0) % MCV (78.0-93.0) fL MCH (26.0-32.0) pg MCHC (32.0-36.0) g/dL RDW Coeff of [place] (10.0-15.0) % Plt Count (130-400) x10^3/uL Neut % (Auto) (50.0-80.0) % Lymph % (Auto) (25.0-50.0) % [place] % (Auto) (2.0-11.0) % Eos % (Auto) (0.0-4.0) % Baso % (Auto) (0.2-1.2) % Sodium (136-145) mmol/L Potassium (3.5-5.1) mmol/L Chloride (98-107) mmol/L Carbon Dioxide (21-32) mmol/L Anion Gap (10-20) mmol/L BUN (7-18) mg/dL Creatinine (0.55-1.02) mg/dL Est Cr Clr Drug Dosing mL/min Estimated GFR (MDRD) Glucose (74-106) mg/dL Lactic Acid 1.0 (0.4-2.0) mmol/L Calcium (8.5-10.1) mg/dL Corrected Calcium (8.5-10.1) mg/dL Total Bilirubin (0.2-1.0) mg/dL AST (15-37) U/L ALT (14-59) U/L Alkaline Phosphatase (46-116) U/L Total Protein (6.4-8.2) g/dL Albumin (3.4-5.0) g/dL Globulin Albumin/Globulin Ratio Leonel Results Last 24 Hours: Microbiology 01/07/18 11:40 MRSA Surveillance Culture - Final Nares, Unspecified NO MRSA ISOLATED Med Orders - Current: Current Medications Hydrochlorothiazide (Hydrochlorothiazide) 12.5 mg PO DAILY [facility] Last Admin: 01/08/18 10:59 Dose: 12.5 mg Levetiracetam (Keppra) 250 mg PO BID [facility] Last Admin: 01/08/18 10:53 Dose: 250 mg Levothyroxine Sodium (Synthroid) 100 mcg PO ACBREAKFAST [facility] Last Admin: 01/08/18 10:52 Dose: 100 mcg Memantine (Namenda) 5 mg PO DAILY [facility] Last Admin: 01/08/18 10:55 Dose: 5 mg Multivitamins/Minerals (Thera M Plus) 1 tab PO DAILY [facility] Last Admin: 01/08/18 10:58 Dose: 1 tab Multivit/Folic Acid/Herbal 275 [[place] Mult Vitamin Plu Own Med 15 ml PO TID [facility] Last Admin: 01/08/18 11:55 Dose: Not Given Selenium Sulfide [ Selsun Blue] 1 ApplicOwn Med 1 applic TOP Q7D [facility] Last Admin: 01/07/18 20:45 Dose: Not Given Sodium Chloride (Saline Flush) 10 ml FLUSH ASDIRECTED PRN PRN Reason: Keep Vein Open Zinc Gluconate (Zinc) 50 mg PO DAILY [facility] Last Admin: 01/08/18 10:59 Dose: 50 mg Discontinued Medications Albuterol/Ipratropium (Duoneb 3.0-0.5 Mg/3 Ml) 3 ml NEB ONETIME ONE Stop: 01/08/18 07:46 Last Admin: 01/08/18 07:59 Dose: 3 ml Albuterol/Ipratropium (Duoneb 3.0-0.5 Mg/3 Ml) Confirm Administered Dose 3 ml .ROUTE .STK-MED ONE Stop: 01/08/18 07:50 Last Admin: 01/08/18 08:01 Dose: Not Given Furosemide (Lasix) 40 mg IV ONETIME ONE Stop: 01/08/18 10:23 Last Admin: 01/08/18 11:12 Dose: Not Given Furosemide (Lasix) 40 mg PO ONETIME ONE Stop: 01/08/18 11:03 Last Admin: 01/08/18 11:14 Dose: 40 mg Sodium Chloride (Normal Saline) 1,000 mls @ 1,000 mls/hr IV .BOLUS ONE Stop: 01/07/18 12:01 Last Admin: 01/07/18 09:50 Dose: 1,000 mls/hr - Exam Quality Assessment: Supplemental Oxygen General: Alert, Oriented HEENT: Pupils Equal, Pupils Reactive, EOMI, Mucous Membr. Moist/[place] Neck: Supple Lungs: Clear to Auscultation, Normal Respiratory Effort Cardiovascular: Regular Rate, Regular Rhythm GI/Abdominal Exam: Normal Bowel Sounds, Soft, Non-Tender, No Organomegaly, No Distention, No Abnormal Bruit, No Mass, Pelvis Stable (Female) Exam: Deferred Back Exam: Normal Inspection, Full Range of Motion Extremities: Normal Inspection, Normal Range of Motion, Non-Tender, No Pedal Edema, Normal Capillary Refill Peripheral Pulses: 4+: Radial (L), Radial (R) Skin: Warm, Dry, Intact Wound/Incisions: Healing Well Neurological: No New Focal Deficit Psy/Mental Status: Alert, Normal Affect, Normal Mood - Problem List & Annotations (1) Cardiomegaly SNOMED Code(s): 1645909 Code(s): I51.7 - CARDIOMEGALY Status: Acute Current Visit: No Annotation/Comment:: - See above under CHF. (2) Congestive heart failure SNOMED Code(s): 29483512 Code(s): I50.9 - HEART FAILURE, UNSPECIFIED Status: Acute Current Visit: No Qualifiers: Heart failure chronicity: acute Annotation/Comment:: Pt. was given lasix 40mg PO as her IV had infiltrated. Will work on weaning her O2. Anticipate discharge when maintaining normal O2 sat above 90%. - Diagnosis made based on evidence of overload on CXR and elevated BNP. - PA and lateral CXR from yesterday does confirm cardiomegaly and pulmonary edema. - Patient had good response to low dose IV lasix x2. Will dose further lasix today depending on BNP results. - Catheter can be discontinued today given we have documented her response to lasix. - Cause for CHF is likely pneumonia in the setting of known mitral valve disease. ECG was negative for any acute process and patient has no history of CAD or evidence currently of CAD or an arrhythmia. TSH is mildly above the normal range, but not enough to be causing the CHF. Anemia is also not severe enough to be causing this. - Briefly discussed with the family yesterday that even if her mitral valve disease has progressed and is now severe enough, this is a major surgery and likely does not fit with her goals of care at this time. Further discussions can occur as an outpatient and an Echo can be pursued as indicated. - Problem List Review Problem List Initiated/Reviewed/Updated: Yes - My Orders Last 24 Hours: My Active Orders 01/07/18 20:00 Multivit/Folic Acid/Herbal 275 [[place] Mult Vitamin Plus Liq] 15 ml PO TID Selenium Sulfide [Selsun Blue] 1 applic TOP Q7D levETIRAcetam [Keppra] 250 mg PO BID 01/07/18 Dinner Mechanical Soft Diet [DIET] 01/08/18 07:00 Levothyroxine [Synthroid] 100 mcg PO ACBREAKFAST 01/08/18 07:15 Chest 1V Frontal [CR] Stat 01/08/18 07:45 RT Aerosol Therapy [RC] ASDIRECTED 01/08/18 08:00 Hydrochlorothiazide 12.5 mg PO DAILY Memantine [Namenda] 5 mg PO DAILY 01/08/18 11:19 Ready for Discharge [RC] PER UNIT ROUTINE
[2018-01-09] MEDS: Levothyroxine 100 MCG Tab PO SCH (06:03)
[2018-01-09] MEDS: Zinc (Zinc Gluconate) 50 MG Tab PO SCH (07:36)
[2018-01-09] MEDS: Multivitamins with Iron/Calcium/Folic Acid/Minerals Tab PO SCH (07:36)
[2018-01-09] MEDS: levETIRAcetam 500 MG Tab PO SCH (07:37)
[2018-01-09] MEDS: Hydrochlorothiazide 12.5 MG Cap PO SCH (07:37)
[2018-01-09] MEDS: HERBAL PO SCH (07:37)
[2018-01-09] MEDS: Memantine 10 MG Tab PO SCH (07:37)
[2018-01-09] MEDS: MULTIVIT PO SCH (07:37)
[2018-01-09] MEDS: FOLIC ACID PO SCH (07:37)
[2018-01-09 09:23] VITALS: BP 102/76
--- NOTE | 2018-01-09 10:40 | PCM.DCSUM1 ---
Discharge Summary - Hospital Course HPI Initial Comments: Patient was brought to the ED at [facility] 2 days ago a for witnessed seizure she had at the longterm. The seizure only lasted about 1 minutes. Patient has a seizure history and is currently taking Keppra BID Pt. has been declining for some time, according to staff. Staff states that over the past several months she has been much more somnolent and sleeps most of the day. She has a history of aspiration in the past and is on thin liquids. Staff states that she has not recently been experiencing any fever or chills. She is non-verbal and has not been indicating that she is in any discomfort or distress. She wears an brief and staff has not noticed if her urine has been concentrated. Diagnosis: Stroke: No Modified Overton Scale: No Symptoms at All Modified Annel Scale Score: 0 - Discharge Data Discharge Date: 01/09/18 Discharge Disposition: DC/Tfer to [facility] Home04 Condition: Fair - Discharge Diagnosis/Problem(s) (1) Cardiomegaly SNOMED Code(s): 2781124 ICD Code: I51.7 - CARDIOMEGALY Status: Acute Current Visit: No (2) Congestive heart failure SNOMED Code(s): 40098918 ICD Code: I50.9 - HEART FAILURE, UNSPECIFIED Status: Acute Current Visit : No Qualifiers: Heart failure chronicity: acute (3) Hypothyroidism SNOMED Code(s): 32589788 ICD Code: E03.9 - HYPOTHYROIDISM, UNSPECIFIED Status: Chronic Priority: Medium Current Visit: No Qualifiers: Hypothyroidism type: unspecified Qualified Code(s): E03.9 - Hypothyroidism , unspecified (4) Dementia SNOMED Code(s): 13906743 ICD Code: F03.90 - UNSPECIFIED DEMENTIA WITHOUT BEHAVIORAL DISTURBANCE Status: Chronic Current Visit: No Qualifiers: Dementia type: Alzheimer's disease Alzheimer's disease onset: early-onset Dementia behavioral disturbance: without behavioral disturbance Qualified Code(s): G30.0 - Alzheimer's disease with early onset; F02.80 - Dementia in other diseases classified elsewhere without behavioral disturbance (5) Mitral valve prolapse SNOMED Code(s): 960423293 ICD Code: I34.1 - NONRHEUMATIC MITRAL (VALVE) PROLAPSE Status: Chronic Current Visit: No (6) Trisomy 21 SNOMED Code(s): 36770012 ICD Code: Q90.9 - DOWN SYNDROME, UNSPECIFIED Status: Chronic Current Visit: No - Patient Summary/Data Operative Procedure(s) Performed: None Consults: None Labs Pending at D/C: None Recommended Follow-up Testing/Procedures: Recheck Echo, TSH, and BNP levels at next follow up appointment with Dr. Smith. Planned Operative Procedure(s) after DC: None Hospital Course: Overall, patient remained stable during her stay. VSS and afebrile. Patient had good UO for one time dose of Lasix. Patient had ramirez removed last night. Nursing staff states she has had wet briefs this AM. Patient is non-verbal so hard to assess how she is feeling this morning. Unclear is fluid bolus on day of admission worsened the heart failure as BNP was only slightly elevated, but double this AM. Potassium low so will supplement prior to discharge. - Patient Instructions Diet: Mechanical Soft, Pureed Activity: Rest and Relax Today Driving: Do Not Drive Showering/Bathing: May Shower Wound/Incision Care: Change Dressing Daily (to heel ulcer) Notify Provider of: Fever, Nausea and/or Vomiting Other/Special Instructions: new seizure activity - Discharge Plan Home Medications: Home Meds Levothyroxine [Synthroid] 100 mcg PO ACBREAKFAST 07/24/16 [History] Multivitamins [Tab-A-Cristóbal] 1 tab PO DAILY 07/24/16 [History] Selenium Sulfide [Selsun Blue] 1 applic TOP WEEKLY 07/24/16 [History] Zinc Gluconate [Zinc] 50 mg PO DAILY 07/24/16 [History] Hydrochlorothiazide 12.5 mg PO DAILY 09/25/16 [History] Memantine [Namenda] 5 mg PO DAILY 01/07/18 [History] Multivit/Folic Acid/Herbal 275 [[place] Mult Vitamin Plus Liq] 15 ml PO TID [History] levETIRAcetam [Keppra] 250 mg PO BID 01/07/18 [History] Patient Handouts: Heart Failure, Preventing Heart Failure Referrals: Solomon Smith MD [Primary Care Provider] - - Discharge Summary/Plan Comment DC Time >30 min.: No Discharge Summary/Plan Comment: Patient will be discharge to [facility] today. Recommend follow up with Dr. Buhr in 2 weeks. No changes with any medications. Recommend follow up Echo. Needs repeat TSH and BNP at next appointment. - General Info Date of Service: 01/09/18 Admission Dx/Problem (Free Text: CHF exacerbation Subjective Update: Unable to assess as patient is non-verbal and does not communicate. Functional Status: Reports: Pain Controlled (does not verbalize, but staff able to assess facial cues), Tolerating Diet - Patient Data Vitals - Most Recent: Last Vital Signs Temp 37.0 C 01/09/18 09:22 Pulse 86 01/09/18 09:22 Resp 12 01/09/18 09:22 BP 102/76 01/09/18 09:22 Pulse Ox 96 01/09/18 09:22 Weight - Most Recent: 53.524 kg I&O - Last 24 hours: Intake & Output 01/08/18 01/09/18 01/09/18 22:59 06:59 14:59 Intake Total 50 120 Output Total 800 300 Balance -800 -250 120 Lab Results - Last 24 hrs: Laboratory Results - last 24 hr 01/09/18 01/09/18 Range/Units 06:38 06:38 WBC 4.0 (4.0-10.0) x10^3/uL RBC 3.90 L (4.00-5.50) x10^6/uL Hgb 12.8 (12.0-16.0) g/dL Hct 37.4 (33.0-47.0) % MCV 95.9 H (78.0-93.0) fL MCH 32.8 H (26.0-32.0) pg MCHC 34.2 (32.0-36.0) g/dL RDW Coeff of Souleymane 14.1 (10.0-15.0) % Plt Count 174 (130-400) x10^3/uL Neut % (Auto) 59.9 (50.0-80.0) % Lymph % (Auto) 28.7 (25.0-50.0) % George % (Auto) 9.5 (2.0-11.0) % Eos % (Auto) 0.7 (0.0-4.0) % Baso % (Auto) 1.2 (0.2-1.2) % Sodium 143 (136-145) mmol/L Potassium 3.3 L (3.5-5.1) mmol/L Chloride 103 (98-107) mmol/L Carbon Dioxide 30 (21-32) mmol/L Anion Gap 13.3 (10-20) mmol/L BUN 19 H (7-18) mg/dL Creatinine 1.3 H (0.55-1.02) mg/dL Est Cr Clr Drug Dosing 31.82 mL/min Estimated GFR (MDRD) 41 Glucose 104 (74-106) mg/dL Calcium 8.4 L (8.5-10.1) mg/dL Phosphorus 3.0 (2.6-4.7) mg/dL Magnesium 1.8 (1.8-2.4) mg/dL NT-Pro-B Natriuret Pep 845 H (<=125) pg/mL LEXI Results - Last 24 hrs: Microbiology 01/07/18 11:40 MRSA Surveillance Culture - Final Nares, Unspecified NO MRSA ISOLATED Med Orders - Current: Current Medications Hydrochlorothiazide (Hydrochlorothiazide) 12.5 mg PO DAILY [facility] Last Admin: 01/09/18 07:37 Dose: 12.5 mg Levetiracetam (Keppra) 250 mg PO BID [facility] Last Admin: 01/09/18 07:37 Dose: 250 mg Levothyroxine Sodium (Synthroid) 100 mcg PO ACBREAKFAST [facility] Last Admin: 01/09/18 06:03 Dose: 100 mcg Memantine (Namenda) 5 mg PO DAILY [facility] Last Admin: 01/09/18 07:37 Dose: 5 mg Multivitamins/Minerals (Thera M Plus) 1 tab PO DAILY [facility] Last Admin: 01/09/18 07:36 Dose: 1 tab Multivit/Folic Acid/Herbal 275 [[place] Mult Vitamin Plu Own Med 15 ml PO TID [facility] Last Admin: 01/09/18 07:37 Dose: Not Given Selenium Sulfide [ Selsun Blue] 1 ApplicOwn Med 1 applic TOP Q7D [facility] Last Admin: 01/07/18 20:45 Dose: Not Given Sodium Chloride (Saline Flush) 10 ml FLUSH ASDIRECTED PRN PRN Reason: Keep Vein Open Zinc Gluconate (Zinc) 50 mg PO DAILY [facility] Last Admin: 01/09/18 07:36 Dose: 50 mg Discontinued Medications Albuterol/Ipratropium (Duoneb 3.0-0.5 Mg/3 Ml) 3 ml NEB ONETIME ONE Stop: 01/08/18 07:46 Last Admin: 01/08/18 07:59 Dose: 3 ml Albuterol/Ipratropium (Duoneb 3.0-0.5 Mg/3 Ml) Confirm Administered Dose 3 ml .ROUTE .STK-MED ONE Stop: 01/08/18 07:50 Last Admin: 01/08/18 08:01 Dose: Not Given Furosemide (Lasix) 40 mg IV ONETIME ONE Stop: 01/08/18 10:23 Last Admin: 01/08/18 11:12 Dose: Not Given Furosemide (Lasix) 40 mg PO ONETIME ONE Stop: 01/08/18 11:03 Last Admin: 01/08/18 11:14 Dose: 40 mg Sodium Chloride (Normal Saline) 1,000 mls @ 1,000 mls/hr IV .BOLUS ONE Stop: 01/07/18 12:01 Last Admin: 01/07/18 09:50 Dose: 1,000 mls/hr - Exam Quality Assessment: Reports: Skin Breakdown (heel ulcer prior to admission) General: Reports: Cooperative, No Acute Distress, Lethargic, Other (does open eyes part way when name is called) Neck: Reports: Supple Lungs: Reports: Clear to Auscultation, Normal Respiratory Effort Cardiovascular: Reports: Regular Rate, Regular Rhythm GI/Abdominal Exam: Normal Bowel Sounds, Soft, Non-Tender Skin: Reports: Warm, Dry, Other (heel ulcer SLASHER; dressing intake) Wound/Incisions: Reports: Healing Well, Dressing Dry and Intact, No Drainage Neurological: Reports: No New Focal Deficit *Q Meaningful Use (DIS) - VTE *Q VTE Mechanical Contraindications *Q: At Risk for Falls
== END 2018-01-09 10:45 ==
LOC: VM.ED 08:57 → VM.MS 11:01
PROVIDERS: ADMIT Physician Assistant; ATTEND Physician Assistant
DX: R56.9 Unspecified convulsions (principal); I11.0 Hypertensive heart disease with heart failure; I50.9 Heart failure, unspecified; E03.9 Hypothyroidism, unspecified; G30.0 Alzheimer's disease with early onset; F02.80 Dementia in other diseases classified elsewhere, unspecified severity, without behavioral disturbance, psychotic disturbance, mood disturbance, and anxiety; I34.1 Nonrheumatic mitral (valve) prolapse; Q90.9 Down syndrome, unspecified; Z79.899 Other long term (current) drug therapy
CPT/HCPCS: 36415; 51798; 70450; 71045; 80048; 80053; 81001; 83605; 83735; 83880; 84100; 84436; 84443; 84481; 84484; 85025; 85610; 93005; 94640; 94760; 96360; 99285; A9270; J7030; 93010; 99217; 99220; 99225

== ENCOUNTER 2018-02-05 11:45 | Inpatient (IN) | payer MEDICARE, MEDICAID ==
[2018-02-05] MEDS ORDERED: Sodium Chloride 0.9% 1,000 ML IV ONE (13:43)
--- NOTE | 2018-02-05 16:31 | EDM.PDOC ---
ED HPI GENERAL MEDICAL PROBLEM - General Chief Complaint: General Stated Complaint: ER VISIT Time Seen by Provider: 02/05/18 13:28 Source of Information: Reports: Other History Limitations: Reports: Altered Mental Status - History of Present Illness INITIAL COMMENTS - FREE TEXT/NARRATIVE: Patient is a resident at [facility] and does have Down's Syndrome. Her staff member is here and history is stated that she has not been eating well over the last few weeks. They have been trying alternative ways to interest her in eating but to little improvement. He also reports that she has not been drinking over the last 2 days. Afebrile, she is non verbal. Staff reports no blood in urine or stool. Bowel movements have been irregular and she has needed more stool softeners, laxatives, and suppositories over the last several weeks. Onset: Gradual Duration: Getting Worse Location: Reports: Generalized - Related Data Allergies Allergy/AdvReac Type Severity Reaction Status Date / Time No Known Allergies Allergy Verified 01/07/18 11:42 Home Meds: Home Meds Levothyroxine [Synthroid] 100 mcg PO ACBREAKFAST 07/24/16 [History] Multivitamins [Tab-A-Cristóbal] 1 tab PO DAILY 07/24/16 [History] Selenium Sulfide [Selsun Blue] 1 applic TOP ASDIRECTED 07/24/16 [History] Zinc Gluconate [Zinc] 50 mg PO DAILY 07/24/16 [History] Hydrochlorothiazide 12.5 mg PO DAILY 09/25/16 [History] levETIRAcetam [Keppra] 250 mg PO BID 01/07/18 [History] Memantine HCl [Namenda] 5 mg PO DAILY 02/05/18 [History] Multivit/Folic Acid/Herbal 275 [[place] Mult Vitamin Plus Liq] 15 ml PO TID [History] Past Medical History HEENT History: Reports: Cataract, Hard of Hearing, Otitis Media Cardiovascular History: Reports: Heart Murmur, Hypertension, Other (See Below) Other Cardiovascular History: Mitral Valve Prolapse Respiratory History: Reports: Pneumonia, Recurrent Other Respiratory History: admitted with pneumonia Gastrointestinal History: Reports: Fecal Incontinence Genitourinary History: Reports: Urinary Incontinence Other Genitourinary History: ramirez catheter inserted in ED prior to admit to floor Other CONTACT LENS FITTER History: information from penitentiary caregiver Musculoskeletal History: Reports: Other (See Below) Other Musculoskeletal History: Congenital hip dislocation, fracture of right lower leg. Neurological History: Reports: Seizure Other Neuro History: Downs Syndrome Psychiatric History: Reports: Dementia, Learning Disability Other Psychiatric History: down's syndrome. information from penitentiary caregiver Endocrine/Metabolic History: Reports: Hypothyroidism Other Hematologic History: information from penitentiary caregiver Other Immunologic History: information from penitentiary caregiver Dermatologic History: Reports: Decubitus Ulcer, Seborrheic Dermatitis, Other ( See Below) Other Dermatologic History: Chronic dermatitis of feet, pressure ulcer right heel - Past Surgical History Head Surgeries/Procedures: Reports: None HEENT Surgical History: Reports: Oral Surgery GI Surgical History: Reports: Cholecystectomy Musculoskeletal Surgical History: Reports: Hip Replacement Oncologic Surgical History: Reports: None Other Oncologic Surgeries/Procedures: information from penitentiary caregiver Social & Family History - Family History Family Medical History: Noncontributory HEENT: Reports: None Cardiac: Reports: None Respiratory: Reports: None GI: Reports: None : Reports: None OBGYN: Reports: None Musculoskeletal: Reports: None Neurological: Reports: None Psychiatric: Reports: None Endocrine/Metabolic: Reports: None Hematologic: Reports: None Immunologic: Reports: None Dermatologic: Reports: None Other Dermatologic Family History: information from penitentiary caregiver Oncologic: Reports: None - Caffeine Use Caffeine Use: Reports: None - Sexual History Sexual History: Reports: None - Living Situation & Occupation Living situation: Reports: Single, Extended Care Facility Occupation: Disabled ED ROS GENERAL - Review of Systems Review Of Systems: See Below (history obtained by [facility] staff) Constitutional: Reports: Decreased Appetite, Other (dehydration) HEENT: Reports: No Symptoms Respiratory: Reports: No Symptoms Cardiovascular: Reports: No Symptoms Endocrine: Reports: No Symptoms GI/Abdominal: Reports: No Symptoms : Reports: No Symptoms Musculoskeletal: Reports: No Symptoms Skin: Reports: No Symptoms Neurological: Reports: No Symptoms Psychiatric: Reports: No Symptoms Hematologic/Lymphatic: Reports: No Symptoms Immunologic: Reports: No Symptoms ED EXAM, GENERAL - Physical Exam Exam: See Below Exam Limited By: No Limitations General Appearance: Mild Distress Eye Exam: Bilateral Eye: EOMI, Normal Inspection, PERRL Ears: Normal TMs Nose: Normal Inspection, Normal Mucosa, No Blood Head: Atraumatic, Normocephalic Neck: Normal Inspection, Supple, Non-Tender, Full Range of Motion Respiratory/Chest: No Respiratory Distress, Normal Breath Sounds Cardiovascular: Normal Peripheral Pulses, Regular Rate, Rhythm, No Edema Peripheral Pulses: 2+: Posterior Tibial (L), Posterior Tibial (R), Dorsalis Pedis (L), Dorsalis Pedis (R) GI/Abdominal: Normal Bowel Sounds, Soft, Non-Tender, No Organomegaly, No Distention, No Abnormal Bruit, No Mass Back Exam: Normal Inspection, Full Range of Motion, NT Extremities: Normal Inspection, Normal Range of Motion, Non-Tender, Normal Capillary Refill, No Pedal Edema Neurological: Slow to Respond, Other (patient non verbal down's syndrome). No: Normal Cognition Skin Exam: Warm, Dry, Intact, Normal Color, No Rash Course - Vital Signs Last Recorded V/S: Last Vital Signs Temp 35.5 C 02/05/18 11:45 Pulse 60 02/05/18 11:45 Resp 18 02/05/18 11:45 BP 113/80 02/05/18 11:45 Pulse Ox 96 02/05/18 11:45 - Orders/Labs/Meds Orders: Active Orders 24 hr Category Date Time Status Insert Urinary Catheter [OM.PC] Q24H Care 02/05/18 15:55 Ordered Urinary Catheter Assessment [RC] ASDIRECTED Care 02/05/18 16:06 Active Abdomen 2V AP Flat Upright [CR] Routine Exams 02/05/18 13:36 Taken Chest 1V Frontal [CR] Stat Exams 02/05/18 13:36 Taken PTH, INTACT [REF] Urgent Lab 02/05/18 14:31 Received URINALYSIS W/MICROSCOPIC [UA W/MICROSCOPIC] [URIN] Stat Lab 02/05/18 15:55 Ordered Labs: Laboratory Tests 02/05/18 02/05/18 02/05/18 Range/Units 14:31 14:31 14:31 WBC 1.8 L* (4.0-10.0) x10^3/uL RBC 3.92 L (4.00-5.50) x10^6/uL Hgb 12.7 (12.0-16.0) g/dL Hct 36.8 (33.0-47.0) % MCV 93.9 H (78.0-93.0) fL MCH 32.4 H (26.0-32.0) pg MCHC 34.5 (32.0-36.0) g/dL RDW Coeff of Souleymane 13.9 (10.0-15.0) % Plt Count 102 L (130-400) x10^3/uL Neut % (Auto) 43.3 L (50.0-80.0) % Lymph % (Auto) 39.4 (25.0-50.0) % Hendricks % (Auto) 12.8 H (2.0-11.0) % Eos % (Auto) 3.9 (0.0-4.0) % Baso % (Auto) 0.6 (0.2-1.2) % Sodium 139 (136-145) mmol/L Potassium 4.0 (3.5-5.1) mmol/L Chloride 103 (98-107) mmol/L Carbon Dioxide 28 (21-32) mmol/L Anion Gap 12.0 (10-20) mmol/L BUN 25 H (7-18) mg/dL Creatinine 1.5 H (0.55-1.02) mg/dL Est Cr Clr Drug Dosing 27.57 mL/min Estimated GFR (MDRD) 35 Glucose 78 (74-106) mg/dL Lactic Acid 0.8 (0.4-2.0) mmol/L Calcium 10.0 D (8.5-10.1) mg/dL Corrected Calcium 11.12 H D (8.5-10.1) mg/dL Total Bilirubin 0.3 (0.2-1.0) mg/dL AST 43 H (15-37) U/L ALT 41 (14-59) U/L Alkaline Phosphatase 113 (46-116) U/L Creatine Kinase 25 L (26-192) U/L C-Reactive Protein 9.0 H (<=0.9) mg/dL NT-Pro-B Natriuret Pep 448 H (<=125) pg/mL Total Protein 7.1 (6.4-8.2) g/dL Albumin 2.6 L (3.4-5.0) g/dL Globulin 4.5 Albumin/Globulin Ratio 0.58 TSH, Ultra Sensitive 4.957 H (0.358-3.74) uIU/mL Urine Color (YELLOW) Urine Appearance (CLEAR) Urine pH (5.0-8.0) Ur Specific [place] Urine Protein (NEGATIVE) mg/dL Urine Glucose (UA) (NEGATIVE) mg/dL Urine Ketones (NEGATIVE) mg/dL Urine Occult Blood (NEGATIVE) Urine Nitrite (NEGATIVE) Urine Bilirubin (NEGATIVE) Urine Urobilinogen (0.2) EU/dL Ur Leukocyte Esterase (NEGATIVE) Urine RBC (NOT SEEN) /HPF Urine WBC (NOT SEEN) /HPF Urine WBC Clumps Ur Squamous Epith Cells (NEGATIVE) /HPF Urine Bacteria (NEGATIVE) /HPF Hyaline Casts (NEGATIVE) /HPF Urine Mucus (NEGATIVE) /LPF 02/05/18 Range/Units 15:55 WBC (4.0-10.0) x10^3/uL RBC (4.00-5.50) x10^6/uL Hgb (12.0-16.0) g/dL Hct (33.0-47.0) % MCV (78.0-93.0) fL MCH (26.0-32.0) pg MCHC (32.0-36.0) g/dL RDW Coeff of Souleymane (10.0-15.0) % Plt Count (130-400) x10^3/uL Neut % (Auto) (50.0-80.0) % Lymph % (Auto) (25.0-50.0) % Hendricks % (Auto) (2.0-11.0) % Eos % (Auto) (0.0-4.0) % Baso % (Auto) (0.2-1.2) % Sodium (136-145) mmol/L Potassium (3.5-5.1) mmol/L Chloride (98-107) mmol/L Carbon Dioxide (21-32) mmol/L Anion Gap (10-20) mmol/L BUN (7-18) mg/dL Creatinine (0.55-1.02) mg/dL Est Cr Clr Drug Dosing mL/min Estimated GFR (MDRD) Glucose (74-106) mg/dL Lactic Acid (0.4-2.0) mmol/L Calcium (8.5-10.1) mg/dL Corrected Calcium (8.5-10.1) mg/dL Total Bilirubin (0.2-1.0) mg/dL AST (15-37) U/L ALT (14-59) U/L Alkaline Phosphatase (46-116) U/L Creatine Kinase (26-192) U/L C-Reactive Protein (<=0.9) mg/dL NT-Pro-B Natriuret Pep (<=125) pg/mL Total Protein (6.4-8.2) g/dL Albumin (3.4-5.0) g/dL Globulin Albumin/Globulin Ratio TSH, Ultra Sensitive (0.358-3.74) uIU/mL Urine Color Yellow (YELLOW) Urine Appearance Cloudy H (CLEAR) Urine pH 6.5 (5.0-8.0) Ur Specific [place] 1.020 Urine Protein 30 H (NEGATIVE) mg/dL Urine Glucose (UA) Negative (NEGATIVE) mg/dL Urine Ketones 15 H (NEGATIVE) mg/dL Urine Occult Blood Trace-intact H (NEGATIVE) Urine Nitrite Negative (NEGATIVE) Urine Bilirubin Small H (NEGATIVE) Urine Urobilinogen 0.2 (0.2) EU/dL Ur Leukocyte Esterase Moderate H (NEGATIVE) Urine RBC 0-5 (NOT SEEN) /HPF Urine WBC 50-75 H (NOT SEEN) /HPF Urine WBC Clumps Few Ur Squamous Epith Cells Few H (NEGATIVE) /HPF Urine Bacteria Moderate H (NEGATIVE) /HPF Hyaline Casts Rare H (NEGATIVE) /HPF Urine Mucus Not seen (NEGATIVE) /LPF Meds: Medications Discontinued Medications Generic Name Dose Route Start Last Admin Trade Name Ibeth PRN Reason Stop Dose Admin Ceftriaxone Sodium 1 gm 02/05/18 16:32 Rocephin IVPUSH 02/05/18 16:33 STAT ONE Sodium Chloride 1,000 mls @ 999 mls/hr 02/05/18 13:43 02/05/18 13:45 Normal Saline IV 02/05/18 14:43 999 mls/hr ONETIME ONE Administration Departure - Departure Time of Disposition: 17:29 Disposition: Admitted As Inpatient 65 Condition: Fair Clinical Impression: UTI, Urinary tract infectious disease, Leukopenia Congestive heart failure Qualifiers: Heart failure chronicity: acute - Discharge Information *PRESCRIPTION DRUG MONITORING PROGRAM REVIEWED*: Not Applicable *COPY OF PRESCRIPTION DRUG MONITORING REPORT IN PATIENT VERITO: Not Applicable Referrals: Solomon Smith MD [Primary Care Provider] - Forms: ED Department Discharge ED Communication - Discussed Case With (1) Discussed Case With (1): Admitting Provider (Dr. Rubin called. Report given. She will admit inpatient.) - Problem List & Annotations (1) Dehydration, mild SNOMED Code(s): 3583689620607 Code(s): E86.0 - DEHYDRATION Status: Resolved Priority: Medium Current Visit: No Annotation/Comment:: - Patient's PO intake is overall poor but improved from admission. - UOP improved with lasix. - Edema improved today. - CXR from yesterday still showing cardiomegaly and pulmonary edema. - Repeat BNP pending from this am. (2) CHF exacerbation SNOMED Code(s): 25041201 Code(s): I50.9 - HEART FAILURE, UNSPECIFIED Status: Chronic Priority: Medium Current Visit: No Qualifiers: Heart failure type: diastolic Qualified Code(s): I50.33 - Acute on chronic diastolic (congestive) heart failure (3) Leukopenia SNOMED Code(s): 73752660, 748850585 Code(s): D72.819 - DECREASED WHITE BLOOD CELL COUNT, UNSPECIFIED Status: Acute Priority: Medium Current Visit: Yes (4) UTI, Urinary tract infectious disease SNOMED Code(s): 22523952 Code(s): N39.0 - URINARY TRACT INFECTION, SITE NOT SPECIFIED Status: Acute Priority: Medium Current Visit: Yes - Problem List Review Problem List Initiated/Reviewed/Updated: Yes - My Orders Last 24 Hours: My Active Orders 02/05/18 13:36 Abdomen 2V AP Flat Upright [CR] Routine Chest 1V Frontal [CR] Stat 02/05/18 14:31 PTH, INTACT [REF] Urgent 02/05/18 15:55 Insert Urinary Catheter [OM.PC] Q24H URINALYSIS W/MICROSCOPIC [UA W/MICROSCOPIC] [URIN] Stat 02/05/18 16:06 Urinary Catheter Assessment [RC] ASDIRECTED - Assessment/Plan Last 24 Hours: My Active Orders 02/05/18 13:36 Abdomen 2V AP Flat Upright [CR] Routine Chest 1V Frontal [CR] Stat 02/05/18 14:31 PTH, INTACT [REF] Urgent 02/05/18 15:55 Insert Urinary Catheter [OM.PC] Q24H URINALYSIS W/MICROSCOPIC [UA W/MICROSCOPIC] [URIN] Stat 02/05/18 16:06 Urinary Catheter Assessment [RC] ASDIRECTED
[2018-02-05] MEDS ORDERED: cefTRIAXone 1 GM Vial IVPUSH ONE (16:32)
[2018-02-05] MEDS ORDERED: SELENIUM SULFIDE TOP SCH (18:15)
[2018-02-05] MEDS: Dextrose 5%-0.45% NaCl 1,000 ML IV SCH (18:38)
--- NOTE | 2018-02-05 18:38 | PCM.HP ---
H&P History of Present Illness - General Date of Service: 01/29/18 Admit Problem/Dx: Admission Diagnosis/Problem Admission Diagnosis/Problem Urinary tract infection Source of Information: EMS, Other History Limitations: Reports: Other - History of Present Illness Initial Comments - Free Text/Narative: Chief complaint : Patient unable to give any endorse staff reports no oral intake in the last 3 or 4 days History of present illness Ms. Leigh. He is a resident at the [facility] she is able to grimace to pain, unable to transfer, is incontinent. Over the last 3 or 4 days she has been taking orally very poorly and she was brought to the emergency room because of her poor oral intake. The staff do not repeat for any fevers, vital signs abnormality. In the emergency room she was found to be afebrile but her white count was only 1800 ; her urinalysis suggested a urinary tract infection. Chest x-ray showed suggested some heart failure. She is admitted for treatment of dehydration, evaluation of leukopenia and rehydration Medical history According to the [facility] EMR 1. Down syndrome 2 dementia 3 seizure disorder: Patient reportedly has seizures very infrequently and they are characterized by generalized stiffening 4. Hypertension 5. Congenital hip dislocation status post replacement in 2002 4. Fracture wrote right lower leg more 2018. Cast was removed recently and she does not weight bear. 5. Right heel ulcer 6. Chronic systolic heart failure. BNP in the past has been 550 6. Dysphasia 7. Seborrheic capitis 8. Bilateral hearing loss 9. Hypothyroidism 10. Osteoporosis 11. Mitral valve prolapse 12. Scoliosis 13. History of cholecystectomy Social history: Patient has lived at [facility] since 2002. She has a guardian who has been notified of her hospitalization and medical condition patient is code level III Habits: Does not smoke or drink alcohol Occasion Crolius 60 mg every 6 months Calcium carbonate/vitamin D 500/400 3 times a day hydrochlorothiazide 12.5 daily Levothyroxine 100 daily Keppra 250 mg twice a day Multiple vitamin once a day Selenium sulfide 2.5% lotion to shampoo his scalp and face twice weekly Zinc 50 mg daily Allergies: None noted Review of systems: Unable to obtain any PE Blood pressure 113/80 pulse 50 respiratory rate 18 O2 sat 96% temperature 95.9 General well-nourished female lying in bed in no acute distress, does not respond to verbal stimulus Skin: He has some mild erythema on the buttocks, there is a proximal 1 cm ulcer on the right heel which is superficial and drying. There is a maculopapular rash on the soles and dorsa of both feet HEENT: There appears to be dried blood or dry food on her lips, mouth and lips do not show any ulceration, no conjunctivitis Lungs: Clear Cor: S1-S2 normal without rubs or gallops is 1 to 2/6 systolic murmur audible throughout the precordium Abdomen soft, bowel sounds active patient may have winced mildly when deeply palpated in the lower abdomen Extremities: No edema seen, there is atrophy present, patient holds her arms and legs in flexion Neuro: No facial asymmetry Psychiatric: Unable to evaluate - Related Data Allergies/Adverse Reactions: Allergies Allergy/AdvReac Type Severity Reaction Status Date / Time No Known Allergies Allergy Verified 01/07/18 11:42 Home Medications: Home Meds Levothyroxine [Synthroid] 100 mcg PO ACBREAKFAST 07/24/16 [History] Multivitamins [Tab-A-Cristóbal] 1 tab PO DAILY 07/24/16 [History] Selenium Sulfide [Selsun Blue] 1 applic TOP ASDIRECTED 07/24/16 [History] Zinc Gluconate [Zinc] 50 mg PO DAILY 07/24/16 [History] Hydrochlorothiazide 12.5 mg PO DAILY 09/25/16 [History] levETIRAcetam [Keppra] 250 mg PO BID 01/07/18 [History] Memantine HCl [Namenda] 5 mg PO DAILY 02/05/18 [History] Multivit/Folic Acid/Herbal 275 [[place] Mult Vitamin Plus Liq] 15 ml PO TID [History] Past Medical History HEENT History: Reports: Cataract, Hard of Hearing, Otitis Media Cardiovascular History: Reports: Heart Murmur, Hypertension, Other (See Below) Other Cardiovascular History: Mitral Valve Prolapse Respiratory History: Reports: Pneumonia, Recurrent Other Respiratory History: admitted with pneumonia Gastrointestinal History: Reports: Fecal Incontinence Genitourinary History: Reports: Urinary Incontinence Other Genitourinary History: armirez catheter inserted in ED prior to admit to floor Other OB/BYN History: information from skilled nursing caregiver Musculoskeletal History: Reports: Other (See Below) Other Musculoskeletal History: Congenital hip dislocation, fracture of right lower leg. Neurological History: Reports: Seizure Other Neuro History: Downs Syndrome Psychiatric History: Reports: Dementia, Learning Disability Other Psychiatric History: down's syndrome. information from skilled nursing caregiver Endocrine/Metabolic History: Reports: Hypothyroidism Other Hematologic History: information from skilled nursing caregiver Other Immunologic History: information from skilled nursing caregiver Dermatologic History: Reports: Decubitus Ulcer, Seborrheic Dermatitis, Other ( See Below) Other Dermatologic History: Chronic dermatitis of feet, pressure ulcer right heel - Past Surgical History Head Surgeries/Procedures: Reports: None HEENT Surgical History: Reports: Oral Surgery GI Surgical History: Reports: Cholecystectomy Musculoskeletal Surgical History: Reports: Hip Replacement Oncologic Surgical History: Reports: None Other Oncologic Surgeries/Procedures: information from skilled nursing caregiver Social & Family History - Family History Family Medical History: Noncontributory HEENT: Reports: None Cardiac: Reports: None Respiratory: Reports: None GI: Reports: None : Reports: None OBGYN: Reports: None Musculoskeletal: Reports: None Neurological: Reports: None Psychiatric: Reports: None Endocrine/Metabolic: Reports: None Hematologic: Reports: None Immunologic: Reports: None Dermatologic: Reports: None Other Dermatologic Family History: information from skilled nursing caregiver Oncologic: Reports: None - Tobacco Use Smoking Status *Q: Never Smoker Second Hand Smoke Exposure: No - Caffeine Use Caffeine Use: Reports: None - Recreational Drug Use Recreational Drug Use: No - Sexual History Sexual History: Reports: None - Living Situation & Occupation Living situation: Reports: Single, Extended Care Facility Occupation: Disabled H&P Review of Systems - Review of Systems: Review Of Systems: Unable To Obtain Exam - Exam Exam: See Below - Vital Signs Vital Signs: Last Vital Signs Temp 96.7 F 02/05/18 17:27 Pulse 65 02/05/18 17:27 Resp 18 02/05/18 17:27 BP 123/56 L 02/05/18 17:27 Pulse Ox 97 02/05/18 17:27 Weight: 114 lb - Patient Data Lab Results Last 24 hrs: Laboratory Results - last 24 hr 02/05/18 02/05/18 02/05/18 Range/Units 14:31 14:31 14:31 WBC 1.8 L* (4.0-10.0) x10^3/uL RBC 3.92 L (4.00-5.50) x10^6/uL Hgb 12.7 (12.0-16.0) g/dL Hct 36.8 (33.0-47.0) % MCV 93.9 H (78.0-93.0) fL MCH 32.4 H (26.0-32.0) pg MCHC 34.5 (32.0-36.0) g/dL RDW Coeff of Soule[place]ane 13.9 (10.0-15.0) % Plt Count 102 L (130-400) x10^3/uL Neut % (Auto) 43.3 L (50.0-80.0) % Lymph % (Auto) 39.4 (25.0-50.0) % [place] % (Auto) 12.8 H (2.0-11.0) % Eos % (Auto) 3.9 (0.0-4.0) % Baso % (Auto) 0.6 (0.2-1.2) % Sodium 139 (136-145) mmol/L Potassium 4.0 (3.5-5.1) mmol/L Chloride 103 (98-107) mmol/L Carbon Dioxide 28 (21-32) mmol/L Anion Gap 12.0 (10-20) mmol/L BUN 25 H (7-18) mg/dL Creatinine 1.5 H (0.55-1.02) mg/dL Est Cr Clr Drug Dosing 27.57 mL/min Estimated GFR (MDRD) 35 Glucose 78 (74-106) mg/dL Lactic Acid 0.8 (0.4-2.0) mmol/L Calcium 10.0 D (8.5-10.1) mg/dL Corrected Calcium 11.12 H D (8.5-10.1) mg/dL Total Bilirubin 0.3 (0.2-1.0) mg/dL AST 43 H (15-37) U/L ALT 41 (14-59) U/L Alkaline Phosphatase 113 (46-116) U/L Creatine Kinase 25 L (26-192) U/L C-Reactive Protein 9.0 H (<=0.9) mg/dL NT-Pro-B Natriuret Pep 448 H (<=125) pg/mL Total Protein 7.1 (6.4-8.2) g/dL Albumin 2.6 L (3.4-5.0) g/dL Globulin 4.5 Albumin/Globulin Ratio 0.58 TSH, Ultra Sensitive 4.957 H (0.358-3.74) uIU/mL Urine Color (YELLOW) Urine Appearance (CLEAR) Urine pH (5.0-8.0) Ur Specific [place] Urine Protein (NEGATIVE) mg/dL Urine Glucose (UA) (NEGATIVE) mg/dL Urine Ketones (NEGATIVE) mg/dL Urine Occult Blood (NEGATIVE) Urine Nitrite (NEGATIVE) Urine Bilirubin (NEGATIVE) Urine Urobilinogen (0.2) EU/dL Ur Leukocyte Esterase (NEGATIVE) Urine RBC (NOT SEEN) /HPF Urine WBC (NOT SEEN) /HPF Urine WBC Clumps Ur Squamous Epith Cells (NEGATIVE) /HPF Urine Bacteria (NEGATIVE) /HPF Hyaline Casts (NEGATIVE) /HPF Urine Mucus (NEGATIVE) /LPF 02/05/18 Range/Units 15:55 WBC (4.0-10.0) x10^3/uL RBC (4.00-5.50) x10^6/uL Hgb (12.0-16.0) g/dL Hct (33.0-47.0) % MCV (78.0-93.0) fL MCH (26.0-32.0) pg MCHC (32.0-36.0) g/dL RDW Coeff of Souleymane (10.0-15.0) % Plt Count (130-400) x10^3/uL Neut % (Auto) (50.0-80.0) % Lymph % (Auto) (25.0-50.0) % [place] % (Auto) (2.0-11.0) % Eos % (Auto) (0.0-4.0) % Baso % (Auto) (0.2-1.2) % Sodium (136-145) mmol/L Potassium (3.5-5.1) mmol/L Chloride (98-107) mmol/L Carbon Dioxide (21-32) mmol/L Anion Gap (10-20) mmol/L BUN (7-18) mg/dL Creatinine (0.55-1.02) mg/dL Est Cr Clr Drug Dosing mL/min Estimated GFR (MDRD) Glucose (74-106) mg/dL Lactic Acid (0.4-2.0) mmol/L Calcium (8.5-10.1) mg/dL Corrected Calcium (8.5-10.1) mg/dL Total Bilirubin (0.2-1.0) mg/dL AST (15-37) U/L ALT (14-59) U/L Alkaline Phosphatase (46-116) U/L Creatine Kinase (26-192) U/L C-Reactive Protein (<=0.9) mg/dL NT-Pro-B Natriuret Pep (<=125) pg/mL Total Protein (6.4-8.2) g/dL Albumin (3.4-5.0) g/dL Globulin Albumin/Globulin Ratio TSH, Ultra Sensitive (0.358-3.74) uIU/mL Urine Color Yellow (YELLOW) Urine Appearance Cloudy H (CLEAR) Urine pH 6.5 (5.0-8.0) Ur Specific [place] 1.020 Urine Protein 30 H (NEGATIVE) mg/dL Urine Glucose (UA) Negative (NEGATIVE) mg/dL Urine Ketones 15 H (NEGATIVE) mg/dL Urine Occult Blood Trace-intact H (NEGATIVE) Urine Nitrite Negative (NEGATIVE) Urine Bilirubin Small H (NEGATIVE) Urine Urobilinogen 0.2 (0.2) EU/dL Ur Leukocyte Esterase Moderate H (NEGATIVE) Urine RBC 0-5 (NOT SEEN) /HPF Urine WBC 50-75 H (NOT SEEN) /HPF Urine WBC Clumps Few Ur Squamous Epith Cells Few H (NEGATIVE) /HPF Urine Bacteria Moderate H (NEGATIVE) /HPF Hyaline Casts Rare H (NEGATIVE) /HPF Urine Mucus Not seen (NEGATIVE) /LPF Result Diagrams: 02/05/18 14:31 02/05/18 14:31 - Problem List (1) Leukopenia SNOMED Code(s): 06973407, 191762261 ICD Code: D72.819 - DECREASED WHITE BLOOD CELL COUNT, UNSPECIFIED Status: Acute Priority: Medium Current Visit: Yes Problem Details: Etiology of this is unclear, drug reaction is possible. I have discontinued hydrochlorothiazide and Namenda. The other culprit could be Keppra (2) UTI, Urinary tract infectious disease SNOMED Code(s): 40577236 ICD Code: N39.0 - URINARY TRACT INFECTION, SITE NOT SPECIFIED Status: Acute Priority: Medium Current Visit: Yes Problem Details: We'll treat with Rocephin IV every 24 pending results of culture, in view of the neutropenia , blood cultures have been ordered (3) Congestive heart failure SNOMED Code(s): 53961426 ICD Code: I50.9 - HEART FAILURE, UNSPECIFIED Status: Acute Current Visit : Yes Problem Details: This appears to be less of a problem than her dehydration. The heart failure showing up on a portable AP x-ray. She is not hypoxic and her lung sounds are clear. We'll hold her diuretic and gently hydrate Qualifiers: Heart failure chronicity: acute (4) Rash SNOMED Code(s): 029889873 ICD Code: R21 - RASH AND OTHER NONSPECIFIC SKIN ERUPTION Status: Acute Current Visit: Yes Problem Details: Etiology of this is unclear. We'll treat for fungal infection with Lotrisone. If this does not resolve however the bacterial infection and/or drug reaction should be considered (5) Decubitus ulcer SNOMED Code(s): 506124747 ICD Code: L89.90 - PRESSURE ULCER OF UNSPECIFIED SITE, UNSPECIFIED STAGE Status: Acute Current Visit: Yes Problem Details: Right heel ulcer appears to be healing quite nicely ,we'll keep pressure off this Qualifiers: Laterality: right (6) Seizure SNOMED Code(s): 03149499 ICD Code: R56.9 - UNSPECIFIED CONVULSIONS Status: Acute Current Visit: Yes Problem Details: Patient has seizures infrequently will check a Keppra level count does not stomach start coming up, Keppra reaction has to be considered although this has been reported rarely (7) Dehydration SNOMED Code(s): 14656634 ICD Code: E86.0 - DEHYDRATION Status: Acute Current Visit: Yes Problem Details: We'll rehydrate gently with D5 half-normal saline and offer liquids and pured diet as tolerated Problem List Initiated/Reviewed/Updated: Yes Orders Last 24hrs: Active Orders 24 hr Category Date Time Status Patient Status [ADT] Routine ADT 02/05/18 17:57 Ordered Communication Order [RC] ROUTINE Care 02/05/18 18:01 Ordered Insert Urinary Catheter [OM.PC] Q24H Care 02/05/18 15:55 Ordered Oxygen Therapy [RC] PRN Care 02/05/18 17:57 Ordered Vital Signs [RC] Q4H Care 02/05/18 17:57 Ordered Pureed Diet [DIET] Diet 02/05/18 Dinner Ordered Abdomen 2V AP Flat Upright [CR] Routine Exams 02/05/18 13:36 Taken Chest 1V Frontal [CR] Stat Exams 02/05/18 13:36 Taken CBC WITH AUTO DIFF [HEME] AM Lab 02/06/18 05:11 Ordered COMPREHENSIVE METABOLIC PN,CMP [CHEM] AM Lab 02/06/18 05:11 Ordered CULTURE BLOOD [BC] Stat Lab 02/05/18 18:08 Ordered CULTURE BLOOD [BC] Stat Lab 02/05/18 18:08 Ordered CULTURE MRSA SURVEY [RM] Routine Lab 02/05/18 18:09 Ordered CULTURE MRSA SURVEY [RM] Routine Lab 02/05/18 18:19 Ordered LEVETIRACETAM, S [REF] Routine Lab 02/05/18 18:19 Ordered PTH, INTACT [REF] Urgent Lab 02/05/18 14:31 Received URINALYSIS W/MICROSCOPIC [UA W/MICROSCOPIC] [URIN] Stat Lab 02/05/18 15:55 Ordered Betamethasone/Clotrimazole [Lotrisone] Med 02/05/18 20:00 Ordered See Dose Instructions TOP BID Dextrose 5%-0.45% NaCl [Dextrose 5%-1/2 NS] 1,000 ml Med 02/05/18 18:00 Ordered IV ASDIRECTED Levothyroxine [Synthroid] Med 02/06/18 07:00 Ordered 100 mcg PO ACBREAKFAST Multivit/Folic Acid/Herbal 275 [[place] Mult Vitamin Med 02/05/18 20:00 Ordered Plus Liq] 15 ml PO TID Selenium Sulfide [Selsun Blue] Med 02/05/18 18:15 Ordered 1 applic TOP ASDIRECTED Zinc Gluconate [Zinc] Med 02/06/18 08:00 Ordered 50 mg PO DAILY cefTRIAXone [Rocephin] Med 02/06/18 16:00 Ordered 1 gm IVPUSH DAILY levETIRAcetam [Keppra] Med 02/05/18 20:00 Ordered 250 mg PO BID Blood Culture x2 Reflex Set [OM.PC] Stat Oth 02/05/18 18:08 Ordered Isolation [COMM] Urgent Oth 02/05/18 18:09 Ordered Sequential Compression Device [OM.PC] Per Unit Routine Oth 02/05/18 17:59 Ordered Code Status [Resuscitation Status] Routine Resus Stat 02/05/18 17:27 Ordered Medication Orders Betamethasone/Clotrimazole (Lotrisone) 0 gm TOP BID MINDA Ceftriaxone Sodium (Rocephin) 1 gm IVPUSH DAILY MINDA Dextrose/Sodium Chloride (Dextrose 5%-1/2 Ns) 1,000 mls @ 125 mls/hr IV ASDIRECTED MINDA Levetiracetam (Keppra) 250 mg PO BID MINDA Levothyroxine Sodium (Synthroid) 100 mcg PO ACBREAKFAST MINDA Non-Formulary Medication (Multivit/Folic Acid/Herbal 275 [[place] Mult Vitamin Plus Liq]) 15 ml PO TID MINDA Non-Formulary Medication (Selenium Sulfide [Selsun Blue]) 1 applic TOP ASDIRECTED MINDA Zinc Gluconate (Zinc) 50 mg PO DAILY MINDA
[2018-02-05] MEDS: levETIRAcetam 500 MG Tab PO SCH (20:15)
[2018-02-05] MEDS: Betamethasone Dipropionate/Clotrimazole 0.05-1% Crm 15 GM Tube TOP SCH (22:54)
[2018-02-06] MEDS: Dextrose 5%-0.45% NaCl 1,000 ML IV SCH (02:40)
[2018-02-06] MEDS: Levothyroxine 100 MCG Tab PO SCH (06:51)
[2018-02-06 08:09] LABS: ANION GAP 8.4 mmol/L (10-20)
[2018-02-06] MEDS: Zinc (Zinc Gluconate) 50 MG Tab PO SCH (09:26)
[2018-02-06] MEDS: Multivitamins with Iron/Calcium/Folic Acid/Minerals Tab PO SCH (09:26)
[2018-02-06] MEDS: levETIRAcetam 500 MG Tab PO SCH ×2 (09:26→22:26)
[2018-02-06] MEDS: Potassium Chloride 10% 20 MEQ/15 ML Soln 15 ML UD Cup PO SCH ×3 (09:27→22:26)
[2018-02-06] MEDS: Betamethasone Dipropionate/Clotrimazole 0.05-1% Crm 15 GM Tube TOP SCH ×2 (09:27→22:27)
--- NOTE | 2018-02-06 13:18 | PN ---
Progress Note for COOPER BRYANT Date: 02/06/2018 Room #: VM.218 SUBJECTIVE: This is hospital day #2 on a 62-year-old with Down syndrome, admitted to Acute Care yesterday due to poor oral intake for the last 3-4 days. On further review, she had an observation admission a month ago for declining for "quite sometime." She has been on Keppra. Staff mention that the dose was decreased. She has probably been on Keppra for a year. She did have some seizure the end of December, had lab work then. Her creatinine was normal, but yesterday it was up to 1.5. She was placed on fluids. Her white count was low at 1.8. There was some concern she might have a UTI, so she was placed on IV Rocephin. She has been afebrile since admission. She is quite sedated this morning. She has only eaten a small amount of her meal with assistance. She has not been coughing. She has not had any fever since she has been here. She had a rash on her feet for 3-4 days. Staff report it is always scaling. She was started on some Lotrimin cream. Calcium corrected was mildly high at 11.2. Her white count again was low, so her Namenda was held. She has no mouth sores reported. OBJECTIVE: Vital Signs: Her temperature is 98, pulse 59, blood pressure 126/65, respiratory rate 18, O2 of 96 on room air. General: She is in no acute distress. Heart: Regular rate and rhythm with murmur. Lungs: Sounds are decreased. Air entry throughout with poor effort. Abdomen: Nondistended, nontender. Extremities: Warm and dry. No edema. Her feet, she does have some petechiae- type rash noted, but it is red, bumps, and she has scaling as well. No warmth. Does not seem to be tender. Mental Status: She is disoriented, and overall she is lethargic. LABORATORY DATA: Lab work does show her white count up to 2.1, it should be noted that on her admission a month ago, it was also low around 2; hemoglobin 11.7; platelets 102. Sodium 140, potassium 3.4, chloride 105, bicarb 30, BUN 18, creatinine 1.3, calcium 8.2, AST down to 38, albumin low at 2.3. Urine culture has been sent. ASSESSMENT AND PLAN: 1. Failure to thrive with poor oral intake. This really started even a month ago. The patient has Down syndrome and lives at a [facility]. We are going to stop IV fluids this morning as I do feel that she might have some evidence of volume overload. Although her chest x-ray suggests congestive heart failure, clinically she does not appear to be in acute heart failure. 2. Dementia. 3. Down syndrome. 4. History of seizure disorder. No seizure during this stay. [facility] 5. Leukopenia. This is not a new problem. Namenda was placed on hold. We will continue to monitor. Repeat tomorrow. 6. Right heel ulcer. She had a recent fracture and was placed in a cast, which recently came off, which possibly caused it, per staff, for the rash We will continue the cream for that. 7. Chronic systolic heart failure. The patient does not require any current Lasix. 8. Dysphagia. We will have her on a pureed diet as tolerated. 9. Hypothyroidism. TSH was within range. PLAN: At this point, the patient will continue on acute cares. I will stop IV fluids. I will repeat lab work tomorrow. We will continue IV Rocephin. Social Work is involved. The patient may need to transition to a higher level of care at this point, like a fpc. I am going to have Therapy assess her. MKA: 02/06/2018 12:50:48 MODL: 02/06/2018 13:14:29 /[id number] MTDD
[2018-02-06] MEDS: cefTRIAXone 1 GM Vial IVPUSH SCH (15:47)
[2018-02-07] MEDS: Levothyroxine 100 MCG Tab PO SCH (06:34)
[2018-02-07 07:38] LABS: ANION GAP 10.5 mmol/L (10-20)
[2018-02-07] MEDS: cefTRIAXone 1 GM Vial IVPUSH SCH (08:30)
[2018-02-07] MEDS: Potassium Chloride 10% 20 MEQ/15 ML Soln 15 ML UD Cup PO SCH ×2 (08:30→12:09)
[2018-02-07] MEDS: Multivitamins with Iron/Calcium/Folic Acid/Minerals Tab PO SCH (08:30)
[2018-02-07] MEDS: levETIRAcetam 500 MG Tab PO SCH (08:30)
[2018-02-07] MEDS: Betamethasone Dipropionate/Clotrimazole 0.05-1% Crm 15 GM Tube TOP SCH ×2 (08:30→20:38)
[2018-02-07] MEDS: Zinc (Zinc Gluconate) 50 MG Tab PO SCH (08:31)
--- NOTE | 2018-02-07 10:38 | PN ---
Progress Note for COOPER BRYANT Date: 02/07/2018 Room #: VM.218 SUBJECTIVE: This is hospital day #3 for a 62-year-old, admitted with UTI, poor oral intake over about 3 to 4 days, but per [facility] staff by discussion this morning, she had really been declining over 2 weeks. Per chart review, she had been recommended by Neurology for MRIs and so forth, but her guardian had not wanted any aggressive treatments. She has been on Keppra and had seizure about a month ago. I contacted Neurology this morning and they did discuss possibly trying Dilantin and Depakote for her to see if this would help with some of her sedation. Otherwise, she has had minimal intake because whenever she eats she is coughing on it at high risk for aspiration. She has been afebrile. She does not appear to be in any pain. She has some myoclonus like activity, but no seizures on exam. She is nonverbal. OBJECTIVE: Vital Signs: Her temperature 98.4, pulse 67, blood pressure 123/86, respiratory rate 24, and O2 of 94% on room air. IV fluids were stopped yesterday as she was developing some fluid overload. General: She is in no acute distress. Heart: Regular rate and rhythm. Lungs: Sounds are decreased with poor respiratory effort, but no crackles. Abdomen: Nondistended and nontender. Extremities: Warm and dry, no edema. Mental Status: Again she is somnolent. She is not orientated. She is nonverbal. LABORATORY DATA: Lab work today does show her white count at 2.1 and stable, hemoglobin 11, platelets 90, neutrophils only 37%, and monocytes high at 13.9. Sodium 143, potassium 3.5, chloride 108, bicarb 28, BUN 15, creatinine 1.3, and calcium 8.2. ASSESSMENT AND PLAN: 1. Generalized failure to thrive in a patient with Down syndrome and dementia. 2. Seizure disorder on Keppra. 3. Aspiration due to somnolence and underlying condition. 4. Leukopenia, stable. 5. Foot rash, improving with Lotrisone cream. 6. Chronic systolic heart failure, stable without exacerbation. 7. Hypokalemia replaced, stable. 8. Dysphagia. 9. Hypothyroidism. TSH within normal range. 10.Pancytopenia. PLAN: At this point, I have already tried to contact her guardian, Deanna Farah #[phone] and [phone]. I did not get a hold of her, but I have talked with [facility] staff already. The plan would be to transition her over to the long term as they have seen this decline in her that she will not be able to return to [facility] living. She will continue on acute cares for today. We will give her seizure medications IV due to her trouble swallowing. We will make adjustments to that as appropriate after discussion with her guardian. I would not recommend any feeding tubes. I would recommend more comfort measures. Plan was also discussed with the hospital social worker. MKA: 02/07/2018 10:13:35 MODL: 02/07/2018 10:27:39 /[id number] MTDD
[2018-02-08] MEDS: Levothyroxine 100 MCG Tab PO SCH (06:33)
[2018-02-08 06:50] VITALS: BP 102/81
[2018-02-08] MEDS: cefTRIAXone 1 GM Vial IVPUSH SCH (07:34)
[2018-02-08] MEDS: Betamethasone Dipropionate/Clotrimazole 0.05-1% Crm 15 GM Tube TOP SCH (07:34)
--- NOTE | 2018-02-08 10:28 | DISCH ---
PRIMARY DISCHARGE DIAGNOSES: 1. Morganella urinary tract infection on IV Rocephin, but failing to improve. 2. Failure to thrive with poor oral intake over the last 3 to 4 days, declining per [facility] staff at least 2 weeks with a previous admission 1 month ago for seizure. 3. History of leg fracture. She is now out of her brace. 4. Down's syndrome with dementia. 5. Risk for aspiration pneumonia, but no pneumonia on this stay with x-ray x2. 6. Leukopenia at least since December, stable, not worsening, B12 normal. 7. Foot rash, possibly fungal as it improved significantly with Lotrisone. 8. Chronic systolic heart failure, stable without exacerbation. 9. Hypothyroidism. TSH mildly elevated around 5. 10.Hypokalemia. 11.Dysphagia. 12.Pancytopenia. REASON FOR ADMISSION/HOSPITAL COURSE: On the date of admission, this 62-year- old female, who lives in a Custodial with Down syndrome, who was brought into the ER due to poor oral intake. She was found to have UTI. She was started on IV Rocephin. She was continued on her Keppra, which had already been previously decreased due to concern for sedation. I had contacted Neurology about that. There was a possibility of changing over to Dilantin or Depakote, but it would take at least a week or 2 and overall I feel the patient's level of decline is more related to her general condition and not just her medications. She was on the first hospital morning, barely alert and awake, but was trying to eat some with this sedation and eating she was aspirating. Therefore for her safety, we recommended she be n.p.o. We did stop fluids as she was starting to get fluid overload on that morning, but she just never woke up to the point where she could be active and participate in her cares. I did speak with Ester, from [facility]. I spoke with the high school social studies tutor. I tried to contact her guardian Deanna on 2 occasions to discuss transition over to comfort cares. Otherwise, Dr. Smith, her regular primary care provider had been charting in his recent notes about comfort cares as well. Therefore, decision was made on the date of discharge to transfer her over to comfort cares for end of life. The patient was also being screened for the possibility of going to the [facility]. The patient was not appearing to be in any pain. She will have Robinul available for secretions. She will wake up and make some eye contact, but will not really follow any commands. She does not appear to be in any respiratory distress or overly anxious. She does have some myoclonic jerks at times, but no seizure activity. OBJECTIVELY: Vital Signs: At the time of transfer over to swing bed, her temperature is 97.4, pulse 66, blood pressure 97/47, respiratory rate 20, and O2 of 99 on room air. General: She is in no acute distress. Heart: Regular rate and rhythm. Lungs: Sounds were decreased with poor respiratory effort. Abdomen: Nondistended, nontender. Extremities: Warm and dry. No edema. She appears to be somnolent, but resting comfortably in bed. Other cares on swing bed, we will replace the Swift as she has been incontinent. We will do frequent turns to prevent skin breakdown. We will continue the Lotrisone cream. We will continue the Keppra IV for seizures. She will be allowed to have a diet as tolerated. If she is able to take an oral intake, she will also receive her levothyroxine. Greater than 30 minutes spent on this discharge process. MKA: 02/08/2018 09:45:08 MODL: 02/08/2018 10:09:36 /[id number]
== END 2018-02-08 09:39 | disposition swing bed (61) | DRG 690 ==
LOC: VM.ED 11:45 → VM.MS 17:09
PROVIDERS: ADMIT Internal Medicine; ATTEND Family Medicine
DX: N39.0 Urinary tract infection, site not specified (principal); D72.819 Decreased white blood cell count, unspecified; I50.22 Chronic systolic (congestive) heart failure; L97.419 Non-pressure chronic ulcer of right heel and midfoot with unspecified severity; D61.818 Other pancytopenia; I50.33 Acute on chronic diastolic (congestive) heart failure; I50.9 Heart failure, unspecified; H91.90 Unspecified hearing loss, unspecified ear; E86.0 Dehydration; Z87.01 Personal history of pneumonia (recurrent); R32 Unspecified urinary incontinence; R56.9 Unspecified convulsions; I11.0 Hypertensive heart disease with heart failure; Q90.9 Down syndrome, unspecified; F03.90 Unspecified dementia, unspecified severity, without behavioral disturbance, psychotic disturbance, mood disturbance, and anxiety; Z51.5 Encounter for palliative care; Z66 Do not resuscitate; B96.4 Proteus (mirabilis) (morganii) as the cause of diseases classified elsewhere; G40.909 Epilepsy, unspecified, not intractable, without status epilepticus; B36.8 Other specified superficial mycoses; Z96.649 Presence of unspecified artificial hip joint; H91.93 Unspecified hearing loss, bilateral; R47.02 Dysphasia; R62.7 Adult failure to thrive; L21.0 Seborrhea capitis; E03.9 Hypothyroidism, unspecified; E87.6 Hypokalemia; M81.0 Age-related osteoporosis without current pathological fracture; I34.1 Nonrheumatic mitral (valve) prolapse; M41.9 Scoliosis, unspecified; Z79.899 Other long term (current) drug therapy
CPT/HCPCS: 36415; 71045; 74019; 80048; 80053; 80177; 81001; 82550; 82607; 83605; 83880; 83970; 84443; 85025; 86140; 87040; 87086; 87088; 87186; 96361; 96374; 97165-GO; 99285; A9270-GY; J0696; J1953; J7030; J7042; J7050

== ENCOUNTER 2018-02-08 09:34 | Inpatient (IN) | payer MEDICARE, MEDICAID ==
[~2018-02-08 09:34] MED LIST: SELENIUM SULFIDE TOP SCH
[2018-02-08] MEDS ORDERED: Glycopyrrolate 0.2 MG/ML 2 ML SDV IVPUSH PRN (09:39)
[2018-02-08] MEDS: Levothyroxine 112 MCG Tab PO SCH (11:13)
[2018-02-08] MEDS: Betamethasone Dipropionate/Clotrimazole 0.05-1% Crm 15 GM Tube TOP SCH (20:52)
[2018-02-09] MEDS: Levothyroxine 112 MCG Tab PO SCH (06:17)
[2018-02-09] MEDS ORDERED: Levothyroxine 100 MCG Tab PO SCH (07:00)
[2018-02-09] MEDS: Betamethasone Dipropionate/Clotrimazole 0.05-1% Crm 15 GM Tube TOP SCH ×2 (09:41→19:46)
[2018-02-09] MEDS ORDERED: Diazepam 5 MG/ML ML Oral Soln 30 ML Bottle PO PRN (23:00)
[2018-02-10] MEDS: Levothyroxine 112 MCG Tab PO SCH (06:23)
[2018-02-10] MEDS ORDERED: Morphine Oral Concentrate 20 MG/ML 30 ML Bottle SL PRN (08:33)
[2018-02-10] MEDS: Betamethasone Dipropionate/Clotrimazole 0.05-1% Crm 15 GM Tube TOP SCH ×2 (09:49→20:53)
[2018-02-11] MEDS: Levothyroxine 112 MCG Tab PO SCH (06:39)
[2018-02-11] MEDS: Betamethasone Dipropionate/Clotrimazole 0.05-1% Crm 15 GM Tube TOP SCH ×2 (09:29→20:46)
[2018-02-12] MEDS: Levothyroxine 112 MCG Tab PO SCH (06:21)
[2018-02-12] MEDS: Betamethasone Dipropionate/Clotrimazole 0.05-1% Crm 15 GM Tube TOP SCH ×2 (08:33→21:18)
[2018-02-13] MEDS: Levothyroxine 112 MCG Tab PO SCH (06:29)
[2018-02-13] MEDS: Betamethasone Dipropionate/Clotrimazole 0.05-1% Crm 15 GM Tube TOP SCH ×2 (09:17→20:31)
[2018-02-13] MEDS: levETIRAcetam 500 MG Tab PO SCH ×2 (09:17→20:30)
--- NOTE | 2018-02-13 12:28 | PCM.DCSUM1 ---
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 They UTI culture grew Morganella. Initial findings: -Down syndrome and Alzheimer-type dementia -Poor intake -Hypokalemia, K+ was 4.0, then 3.4 -At time of T/F to Swing Bed she was afebrile and K+ improved, to 3.5 but still eating poorly Treatment and Course in Hospital: There was concern initially that her sedation and poor intake might be from Keppra which was started when she had a seizure in 01/09. She completed a course of IV Rocephin. Her WBC was 2100 on recheck. Decision was made to keep her on Keppra and use IM Valium as needed for uncontrolled seizures, because with her poor swallowing she would not switch well to other anticonvulsants either. At the time of D/C today, her swallowing has improved a bit and she is sent to [facility] on Keppra for her seizures. She remained afebrile during her course , was essentially on Comfort Care status, but improved a little bit, although not alert and not conversing at all. She has passed her screening for T/F [facility], [facility]. Condition on Discharge: -Heart sounds regular -Lying flat in bed without dyspnea, lungs clear -Disconjugate gaze as always -No verbal response to examiner Discharge Plan: -T/F to [facility] -Comfort Care status, give oral medications as she will take them Diagnosis: Stroke: No - Discharge Data Discharge Date: 02/13/18 Discharge Disposition: DC/Tfer to [facility] 03 Condition: Poor - Patient Summary/Data Consults: Consultations 02/08/18 09:33 Consult to Barrel Inspector [CONS] Routine - Discharge Plan *PRESCRIPTION DRUG MONITORING PROGRAM REVIEWED*: Not Applicable *COPY OF PRESCRIPTION DRUG MONITORING REPORT IN PATIENT VERITO: Not Applicable Home Medications: Home Meds Levothyroxine [Synthroid] 100 mcg PO ACBREAKFAST 07/24/16 [History] Multivitamins [Tab-A-Cristóbal] 1 tab PO DAILY 07/24/16 [History] Selenium Sulfide [Selsun Blue] 1 applic TOP ASDIRECTED 07/24/16 [History] hydroCHLOROthiazide [Hydrochlorothiazide] 12.5 mg PO DAILY 09/25/16 [History] levETIRAcetam [Keppra] 250 mg PO BID 01/07/18 [History] Memantine HCl [Namenda] 5 mg PO DAILY 02/05/18 [History] levETIRAcetam [Keppra] 250 mg IV Q12H sdv 02/13/18 [Rx] - Patient Data Vitals - Most Recent: Last Vital Signs Temp 36.3 C 02/10/18 05:40 Pulse 75 02/10/18 05:40 Resp 19 02/10/18 05:40 BP 110/60 02/10/18 05:40 Pulse Ox 97 02/10/18 05:40 Weight - Most Recent: 51.71 kg I&O - Last 24 hours: Intake & Output 02/12/18 02/13/18 02/13/18 22:59 06:59 14:59 Intake Total 300 0 Balance 300 0 Med Orders - Current: Current Medications Betamethasone/Clotrimazole (Lotrisone) 0 gm TOP BID [facility] Last Admin: 02/13/18 09:17 Dose: 1 applic Diazepam (Valium Intensol 5 Mg/Ml) 5 mg PO QID PRN PRN Reason: Anxiety Glycopyrrolate (Glycopyrrolate) 0.4 mg IVPUSH Q2H PRN PRN Reason: SECRETIONS Levetiracetam (Keppra) 250 mg PO BID [facility] Last Admin: 02/13/18 09:17 Dose: 250 mg Levothyroxine Sodium (Levothyroxine) 112 mcg PO ACBREAKFAST [facility] Last Admin: 02/13/18 06:29 Dose: 112 mcg Morphine Sulfate (Morphine 20 Mg/Ml Soln) 5 mg SL Q4H PRN PRN Reason: Pain Selenium Sulfide [ Selsun Blue] (Own Supply) 1 applic TOP ASDIRECTED [facility] Discontinued Medications Levetiracetam 250 mg/ Sodium (Chloride) 102.5 mls @ 400 mls/hr IV Q12H [facility] Last Admin: 02/13/18 09:17 Dose: Not Given Levothyroxine Sodium (Synthroid) 100 mcg PO ACBREAKFAST [facility]
[2018-02-14] MEDS: Levothyroxine 112 MCG Tab PO SCH (06:44)
[2018-02-14] MEDS: Betamethasone Dipropionate/Clotrimazole 0.05-1% Crm 15 GM Tube TOP SCH ×2 (08:39→21:04)
[2018-02-14] MEDS: levETIRAcetam 500 MG Tab PO SCH ×2 (08:39→21:04)
[2018-02-15] MEDS: Levothyroxine 112 MCG Tab PO SCH (06:15)
[2018-02-15] MEDS: levETIRAcetam 500 MG Tab PO SCH (08:14)
[2018-02-15] MEDS: Betamethasone Dipropionate/Clotrimazole 0.05-1% Crm 15 GM Tube TOP SCH (08:14)
[2018-02-15 10:55] VITALS: BP 112/62
== END 2018-02-15 13:20 | DRG 690 ==
LOC: VM.MS 09:34
PROVIDERS: ADMIT Internal Medicine; ATTEND Family Medicine
DX: N39.0 Urinary tract infection, site not specified (principal); I50.22 Chronic systolic (congestive) heart failure; B96.4 Proteus (mirabilis) (morganii) as the cause of diseases classified elsewhere; I11.0 Hypertensive heart disease with heart failure; Q90.9 Down syndrome, unspecified; E03.9 Hypothyroidism, unspecified; E86.0 Dehydration; E87.6 Hypokalemia; Z51.5 Encounter for palliative care; Z66 Do not resuscitate; G30.9 Alzheimer's disease, unspecified; F02.80 Dementia in other diseases classified elsewhere, unspecified severity, without behavioral disturbance, psychotic disturbance, mood disturbance, and anxiety; R56.9 Unspecified convulsions; M81.0 Age-related osteoporosis without current pathological fracture; R13.10 Dysphagia, unspecified; Z96.641 Presence of right artificial hip joint; Z79.899 Other long term (current) drug therapy
CPT/HCPCS: 51702; A9270-GY; J1953; J7050